=== PATIENT | male | born 1965 | race American Indian/Alaskan Native ===

== ENCOUNTER 2020-12-24 16:17 | Inpatient (IN) | payer MEDICAID ==
[2020-12-24] MEDS ORDERED: ONDANSETRON 4 MG/2 ML INJ ONE (16:23)
[2020-12-24] MEDS ORDERED: EPINEPHrine/PF 1 MG/1 ML INJ SUB-Q ONE (16:38)
[2020-12-24] MEDS ORDERED: SODIUM CHLORIDE 0.9% 1000 ML 1,000 ML IV ONE (16:38)
[2020-12-24] MEDS ORDERED: diphenhydrAMINE 50 MG/ML VIAL IV ONE ×2 (16:38→22:48)
[2020-12-24] MEDS ORDERED: methylPREDNISolone Sod Succinate 125 MG/2 ML INJ IV ONE (16:38)
[2020-12-24] MEDS ORDERED: FAMOTIDINE 20 MG/2 ML INJ IV ONE (16:38)
[2020-12-24] MEDS ORDERED: MINERAL OIL/PETROLATUM, WHITE OPHTH OINT 3.5 GM OU PRN (16:39)
[2020-12-24] MEDS ORDERED: LIP THERAPY VASELINE TP PRN (16:39)
--- NOTE | 2020-12-24 16:41 | Emergency Department Report ---
ED Allergic Reaction HPI - General Chief complaint: Allergic Reaction Stated complaint: RAF Time Seen by Provider: 12/24/20 16:17 Source: patient Mode of arrival: Stretcher Limitations: No Limitations - History of Present Illness Initial Comments: Patient is a 55-year-old male who presents with difficulty breathing allergic reaction. Patient states that he was having English food and instantly began to have difficulty. Patient dates he has been intubated in the past for asthma and allergies. Patient states he has a history of asthma COPD and severe allergic reactions. Patient states he cannot breathe. Patient states he feels like is going to . Patient states his tongue and throat were swelling. Patient denies pain. Patient denies recent travel. Patient denies recent international travel. Patient denies exposure to the novel coronavirus. Patient denies sick contacts. Patient denies fever and chills. Patient denies cough. Patient denies diarrhea. Patient denies coming in contact with anybody with symptoms of the novel coronavirus. MD Complaint: allergic reaction, facial swelling -: Sudden Exposure: food Symptoms: facial swelling, lip swelling, difficulty swallowing, difficulty breathing, orolingual swelling Severity: severe Treatment Prior to Arrival: none Previous Allergy History: anaphylaxis, intubation - Related Data Previous Rx's Medication Instructions Recorded Last Taken Type ALBUTEROL NEB's [Proventil 0.083% 2.5 mg IH Q3HR PRN 30 Days nebu 08/03/17 Unknown Rx NEBS] Albuterol Mdi (or & Nicu Only) 1 puff IH PRN 30 Days inha 08/03/17 Unknown Rx [ProAir HFA Inhaler] Budesonide [Pulmicort Respules] 0.5 mg IH Q12HRT 30 Days nebu 08/03/17 Unknown Rx Prednisone [predniSONE 10 mg 10 mg PO .TAPER #1 tab.ds.pk 08/03/17 Unknown Rx (6-Day Pack, 21 Tabs)] guaiFENesin [Robitussin] 200 mg PO Q4H PRN 15 Days 08/03/17 Unknown Rx oral.liqd levoFLOXacin [Levaquin] 750 mg PO QDAY #5 tablet 08/03/17 Unknown Rx oxyCODONE /ACETAMINOPHEN [Percocet 1 tab PO Q4H PRN #7 tablet 08/03/17 Unknown Rx 5/325 mg] Allergies Allergy/AdvReac Type Severity Reaction Status Date / Time Penicillins Allergy Angioedema Verified 07/31/17 06:59 ED Review of Systems ROS: Stated complaint: RAF Other details as noted in HPI Constitutional: denies: chills, fever Eyes: denies: eye pain, eye discharge, vision change ENT: denies: ear pain, throat pain Respiratory: see HPI, cough, shortness of breath, SOB with exertion, wheezing Cardiovascular: denies: chest pain, palpitations Endocrine: no symptoms reported Gastrointestinal: denies: abdominal pain, nausea, diarrhea Genitourinary: denies: urgency, dysuria Musculoskeletal: denies: back pain, joint swelling, arthralgia Skin: denies: rash, lesions Neurological: denies: headache, weakness, paresthesias Psychiatric: denies: anxiety, depression Hematological/Lymphatic: denies: easy bleeding, easy bruising ED Past Medical Hx - Past Medical History Previous Medical History?: Yes Hx Arthritis: Yes Hx Asthma: Yes Hx COPD: Yes Hx HIV: No Additional medical history: Mitral valve prolapse - Surgical History Past Surgical History?: Yes Additional Surgical History: reconstructive R leg surgery - Family History Family history: no significant - Social History Smoking Status: Current Every Day Smoker Substance Use Type: None - Medications Home Medications: Home Medications Medication Instructions Recorded Confirmed Last Taken Type ALBUTEROL NEB's [Proventil 0.083% 2.5 mg IH Q3HR PRN 30 Days nebu 08/03/17 Unknown Rx NEBS] Albuterol Mdi (or & Nicu Only) 1 puff IH PRN 30 Days inha 08/03/17 Unknown Rx [ProAir HFA Inhaler] Budesonide [Pulmicort Respules] 0.5 mg IH Q12HRT 30 Days nebu 08/03/17 Unknown Rx Prednisone [predniSONE 10 mg 10 mg PO .TAPER #1 tab.ds.pk 08/03/17 Unknown Rx (6-Day Pack, 21 Tabs)] guaiFENesin [Robitussin] 200 mg PO Q4H PRN 15 Days 08/03/17 Unknown Rx oral.liqd levoFLOXacin [Levaquin] 750 mg PO QDAY #5 tablet 08/03/17 Unknown Rx oxyCODONE /ACETAMINOPHEN [Percocet 1 tab PO Q4H PRN #7 tablet 08/03/17 Unknown Rx 5/325 mg] ED Physical Exam - General General appearance: alert, in distress - Head Head exam: Present: atraumatic, normocephalic - Eye Eye exam: Present: normal appearance - ENT ENT exam: Present: mucous membranes dry, other (Tongue swelling noted) - Neck Neck exam: Present: normal inspection - Respiratory Respiratory exam: Present: respiratory distress, accessory muscle use, decreased breath sounds - Cardiovascular Cardiovascular Exam: Present: regular rate, normal rhythm. Absent: systolic murmur, diastolic murmur, rubs, gallop - GI/Abdominal GI/Abdominal exam: Present: soft, normal bowel sounds. Absent: distended, tenderness, guarding, rebound - Rectal Rectal exam: Present: deferred - Extremities Exam Extremities exam: Present: normal inspection - Back Exam Back exam: Present: normal inspection - Neurological Exam Neurological exam: Present: alert, oriented X3 - Psychiatric Psychiatric exam: Present: agitated, anxious - Skin Skin exam: Present: warm, dry, intact, normal color. Absent: rash ED Course - Reevaluation(s) Reevaluation #1: Patient having severe allergic reaction. Patient having difficulty breathing. Patient will be given prednisone, epi, Solu-Medrol, Pepcid and a breathing treatment. Patient is not moving any air. Patient has a silent chest. 12/24/20 16:15 Reevaluation #2: Patient having increased work of breathing. Patient is fatigued. Patient is falling asleep and and is difficult to arouse. Patient will be intubated to protect the airway. 12/24/20 16:22 Reevaluation #3: Patient intubated without difficulty. Patient will be placed on a fentanyl drip. Patient has as needed orders of fentanyl. Patient given 5 mg of Versed post intubation for sedation. During intubation patient noted to have a swollen tongue and cords. 12/24/20 16:36 Reevaluation #4: Patient on the ventilator. Patient's vital signs are stable. Patient is adequately sedated. 12/24/20 16:58 - Intubation Time Out Performed: Yes Sedative: Etomidate Paralytic: Rocuronium Laryngoscope: fiberoptic video scope Size: 3 Assist Device Used: fiberoptic device ET Tube Size: 7.5 Tube Secured Depth (cm): 22 Tube Secured Location: teeth Tube Placement Confirmation: visualized tube passing t, equal breath sounds bilat, no breath sounds over epi, confirmation by capnometr Patient Tolerated Procedure: well, no complications Intubation Complications: none ED Medical Decision Making - Lab Data Result diagrams: 12/24/20 16:48 12/24/20 16:48 - Radiology Data Radiology results: report reviewed, image reviewed interpreted by me: Chest x-ray: No pneumonia, no pneumothorax, ET tube in good position., no osseous findings, CHEST 1 VIEW 12/24/2020 3:58 PM INDICATION / CLINICAL INFORMATION: ETT placement. COMPARISON: August 2017 FINDINGS: SUPPORT DEVICES: None. HEART / MEDIASTINUM: No significant abnormality. LUNGS / PLEURA: Mild increased perihilar opacities. Mild increased densities also seen extending to the left lower lung. No pneumothorax. ADDENDUM ET tube is 6.2 cm above the george. - Medical Decision Making Patient is a 55-year-old male that presents emergency room with severe anaphylaxis with complaints of shortness of breath and allergic reaction. Patient on initial evaluation found to be short of breath, increased work of breathing, respiratory distress, anxious and severely diaphoretic. Patient initially was not moving much air and after was given some medications began to wheeze. Even after the initial medications of Solu-Medrol, breathing treatment, Pepcid and Benadryl the patient continued to have work to breathe but became very lethargic. In order to protect the patient's airway and support the patient's oxygen, the patient was intubated. Patient was intubated without difficulty. Upon intubation patient noted to have a severely swollen tongue and vocal cords. Patient had a chest x-ray post intubation showed satisfactory placement of the ET tube and no acute findings. Personally reviewed the chest x-ray. Patient placed on fentanyl drip for sedation and patient was adequately sedated while in ER. Patient also given a mag run. Patient had labs done which were essentially unremarkable. Patient admitted to the hospital service for further evaluation treatment and into the ICU. Critical care time documented due to the multiple reassessments, prolonged time at the bedside, interpretation of diagnostics and labs. - Differential Diagnosis Anaphylactic shock, anaphylaxis, resp distress, respiratory failure,sob Critical Care Time: Yes Critical care time in (mins) excluding proc time.: 45 Critical care attestation.: If time is entered above; I have spent that time in minutes in the direct care of this critically ill patient, excluding procedure time. Critical Care Time: 45 minutes ED Disposition Clinical Impression: Hypoxia, Shortness of breath, Respiratory distress, Tongue swelling Respiratory failure Qualifiers: Chronicity: acute Respiratory failure complication: hypoxia Qualified Code(s): J96.01 - Acute respiratory failure with hypoxia Anaphylactic reaction Qualifiers: Encounter type: initial encounter Qualified Code(s): T78.2XXA - Anaphylactic shock, unspecified, initial encounter Disposition: DC-09 OP ADMIT IP TO THIS HOSP Is pt being admited?: Yes Does the pt Need Aspirin: No Condition: Critical Time of Disposition: 18:03
[2020-12-24] MEDS ORDERED: ROCURONIUM 50 MG/5 ML INJ IV ONE ×2 (16:46→16:50)
[2020-12-24] MEDS ORDERED: ETOMIDATE 20 MG/10 ML INJ IV ONE ×2 (16:46→16:50)
[2020-12-24] MEDS ORDERED: MIDAZOLAM 5 MG/5 ML INJ MDV IV ONE (16:50)
[2020-12-24 16:57] LABS: Hematocrit 44.6 % (35.5-45.6); Hemoglobin 14.9 gm/dl (11.8-15.2); Mean Corpuscular HGB Conc 33 % (32-34); Mean Corpuscular Volume 88 fl (84-94); Platelet Count 194 K/mm3 (140-440); Red Blood Count 5.05 M/mm3 (3.65-5.03); Red Cell Distribution Width 14.2 % (13.2-15.2)
[2020-12-24] MEDS: fentaNYL DRIP Premix 2,000 MCG/100 ML BAG IV SCH ×3 (17:00→23:58)
[2020-12-24] MEDS ORDERED: MIDAZOLAM 5 MG/5 ML INJ MDV IV NR (17:00)
--- NOTE | 2020-12-24 17:04 | XRay Report ---
CHEST 1 VIEW 12/24/2020 3:58 PM INDICATION / CLINICAL INFORMATION: ETT placement. COMPARISON: August 2017 FINDINGS: SUPPORT DEVICES: None. HEART / MEDIASTINUM: No significant abnormality. LUNGS / PLEURA: Mild increased perihilar opacities. Mild increased densities also seen extending to t he left lower lung. No pneumothorax. Signer Name: Edd Junior MD Signed: 12/24/2020 5:00 PM Workstation Name: [id number]
[2020-12-24] MEDS: fentaNYL 100 MCG/2 ML INJ IV PRN ×2 (17:10→17:40)
[2020-12-24] MEDS ORDERED: MAGNESIUM SULFATE 2 GM/50 ML BAG IV ONE (17:19)
[2020-12-24 17:35] LABS: Alanine Aminotransferase 33 units/L (7-56); Albumin 4.2 g/dL (3.9-5); BUN/Creatinine Ratio 9; Blood Urea Nitrogen 8 mg/dL (9-20); Calcium 8.7 mg/dL (8.4-10.2); Hemolysis Index 56
[2020-12-24 18:30] LABS: ABG HCO3 28.3 mmol/L (20.0-26.0); ABG Methemoglobin 0.6 % (0.0-1.5); ABG Oxygen Saturation 99.4 % (95.0-99.0); ABG PCO2 62.4 mm Hg; ABG PH 7.275 pH Units (7.350-7.450); ABG PO2 257.7 mm Hg (80.0-90.0)
[2020-12-24 20:15] LABS: Large Platelets Rare; Total Cells Counted 100
[2020-12-24 20:16] LABS: Platelet Estimate Consistent w Auto
[2020-12-24] MEDS ORDERED: METOCLOPRAMIDE 10 MG/2 ML INJ IV PRN (22:37)
[2020-12-24] MEDS ORDERED: HYDROmorphone 1 MG/1 ML INJ IV PRN (22:37)
[2020-12-24] MEDS ORDERED: ONDANSETRON 4 MG/2 ML INJ IV PRN (22:37)
[2020-12-24] MEDS ORDERED: ACETAMINOPHEN 325 MG TAB PO PRN (22:37)
[2020-12-24] MEDS ORDERED: IPRATROPIUM/ALBUTEROL SULFATE 3 ML AMPUL.NEB IH PRN (22:42)
[2020-12-24] MEDS ORDERED: SODIUM CHLORIDE 0.9% 1000 ML 1,000 ML IV SCH (22:45)
[2020-12-24] MEDS ORDERED: FAMOTIDINE 20 MG/2 ML INJ IV SCH ×2 (23:00)
[2020-12-24] MEDS ORDERED: SODIUM BICARBONATE 325 MG TAB FEEDTUBE PRN (23:08)
[2020-12-24] MEDS ORDERED: LIPASE 10,500/PROTEASE 25,000/AMYLASE 43,750 (UNITS) DR CAP FEEDTUBE PRN (23:08)
[2020-12-24] MEDS ORDERED: SIMPLE SYRUP 15 ML FEEDTUBE PRN ×2 (23:08)
--- NOTE | 2020-12-24 23:15 | History and Physical Report ---
History of Present Illness Date of examination: 12/24/20 Date of admission: 12/24/20 18:01 Chief complaint: Acute onset of shortness of breath after eating Vietnamese food History of present illness: 55-year-old male comes in for an acute onset of shortness of breath and swelling of the lips and tongue. Patient stated he was having time for instantly began to have difficulty breathing and swelling of the tongue and lips. Patient has history of severe allergic reactions in addition to asthma and COPD. Patient states he cannot read. Patient states that he is feeling as if he is going to . Patient patient was immediately intubated in the emergency room upon ar rival to prevent severe hypoxia and anoxic encephalopathy. Patient is probably allergic to shrimp. No fever or chills - Past Medical History Previous Medical History?: Yes --Arthritis: Yes --Asthma: Yes --COPD: Yes Additional medical history: Mitral valve prolapse - Surgical History Past Surgical History?: Yes Additional Surgical History: reconstructive R leg surgery - Family History Family history: no significant - Social History Smoking Status: Current Every Day Smoker Substance Use Type: None - Medications Home Medications: Home Medications Medication Instructions Recorded Confirmed Last Taken Type ALBUTEROL NEB's [Proventil 0.083% 2.5 mg IH Q3HR PRN 30 Days nebu 08/03/17 Unknown Rx NEBS] Albuterol Mdi (or & Nicu Only) 1 puff IH PRN 30 Days inha 08/03/17 Unknown Rx [ProAir HFA Inhaler] Budesonide [Pulmicort Respules] 0.5 mg IH Q12HRT 30 Days nebu 08/03/17 Unknown Rx Prednisone [predniSONE 10 mg 10 mg PO .TAPER #1 tab.ds.pk 08/03/17 Unknown Rx (6-Day Pack, 21 Tabs)] guaiFENesin [Robitussin] 200 mg PO Q4H PRN 15 Days 08/03/17 Unknown Rx oral.liqd levoFLOXacin [Levaquin] 750 mg PO QDAY #5 tablet 08/03/17 Unknown Rx oxyCODONE /ACETAMINOPHEN [Percocet 1 tab PO Q4H PRN #7 tablet 08/03/17 Unknown Rx 5/325 mg] Review of Systems ROS: Stated complaint: RAF Other details as noted in HPI Constitutional: denies: chills, fever Eyes: denies: eye pain, eye discharge, vision change ENT: denies: ear pain, throat pain Respiratory: see HPI, cough, shortness of breath, SOB with exertion, wheezing Cardiovascular: denies: chest pain, palpitations Endocrine: no symptoms reported Gastrointestinal: denies: abdominal pain, nausea, diarrhea Genitourinary: denies: urgency, dysuria Musculoskeletal: denies: back pain, joint swelling, arthralgia Skin: denies: rash, lesions Neurological: denies: headache, weakness, paresthesias Psychiatric: denies: anxiety, depression Hematological/Lymphatic: denies: easy bleeding, easy bruising Medications and Allergies Allergies Allergy/AdvReac Type Severity Reaction Status Date / Time Penicillins Allergy Angioedema Verified 07/31/17 06:59 Home Medications Medication Instructions Recorded Confirmed Last Taken Type ALBUTEROL NEB's [Proventil 0.083% 2.5 mg IH Q3HR PRN 30 Days nebu 08/03/17 12/25/20 Unknown Rx NEBS] Albuterol Mdi (or & Nicu Only) 1 puff IH PRN 30 Days inha 08/03/17 12/25/20 Unknown Rx [ProAir HFA Inhaler] Budesonide [Pulmicort Respules] 0.5 mg IH Q12HRT 30 Days nebu 08/03/17 12/25/20 Unknown Rx Prednisone [predniSONE 10 mg 10 mg PO .TAPER #1 tab.ds.pk 08/03/17 12/25/20 Unknown Rx (6-Day Pack, 21 Tabs)] guaiFENesin [Robitussin] 200 mg PO Q4H PRN 15 Days 08/03/17 12/25/20 Unknown Rx oral.liqd levoFLOXacin [Levaquin] 750 mg PO QDAY #5 tablet 08/03/17 12/25/20 Unknown Rx oxyCODONE /ACETAMINOPHEN [Percocet 1 tab PO Q4H PRN #7 tablet 08/03/17 12/25/20 Unknown Rx 5/325 mg] Active Meds: Active Medications Fentanyl (Fentanyl 100 Mcg/2 Ml Inj) 50 mcg IV Q10MIN PRN PRN Reason: ANALGESIA Last Admin: 12/24/20 17:40 Dose: 50 mcg Documented by: Hydrophilic Ointment (Lip Therapy Vaseline) 1 applic TP Q2HR PRN PRN Reason: Dry Lips Fentanyl Citrate (Fentanyl Drip Premix) 2,000 mcg in 100 mls @ 6.804 mls/hr IV TITR CHINTAN; Protocol Last Titration: 12/24/20 17:45 Dose: 4 mcg/kg/hr, 27.216 mls/hr Documented by: Multi-Ingred Cream/Lotion/Oil/Oint (Mineral Oil/Petrolatum, White Ophth Oint 3.5 Gm) 1 applic OU Q4HR PRN PRN Reason: Dry Eye(s) Exam - Physical Exam Narrative exam: Patient is intubated and on vent - Constitutional Vitals: Temp Pulse Resp BP Pulse Ox 98.6 F 81 14 132/78 97 12/24/20 17:58 12/24/20 21:31 12/24/20 21:31 12/24/20 21:31 12/24/20 21:31 General appearance: Present: severe distress - EENT Eyes: Present: PERRL ENT: hearing intact, clear oral mucosa, other (Tongue swollen and lip swollen) - Neck Neck: Present: supple, normal ROM - Respiratory Respiratory effort: normal Respiratory: bilateral: CTA - Cardiovascular Heart rate: 78 Rhythm: regular Heart Sounds: Present: S1 & S2. Absent: rub, click - Extremities Extremities: pulses symmetrical, No edema Peripheral Pulses: within normal limits - Abdominal General gastrointestinal: Present: soft, non-tender, non-distended, normal bowel sounds Male genitourinary: Present: normal - Integumentary Integumentary: Present: clear, warm, dry - Musculoskeletal Musculoskeletal: gait normal, strength equal bilaterally - Psychiatric Psychiatric: appropriate mood/affect, intact judgment & insight - Neurologic Neurologic: CNII-XII intact, moves all extremities HEART Score - HEART Score History: Slightly suspicious Age: 45-65 Risk factors: No known risk factors - Critical Actions Critical Actions: 0-3 pts:0.9-1.7%risk of adverse cardiac event.Candidate for discharge Results - Labs CBC & Chem 7: 12/25/20 04:44 12/26/20 05:23 Labs: Laboratory Last Values WBC 5.9 K/mm3 (4.5-11.0) 12/24/20 16:48 RBC 5.05 M/mm3 (3.65-5.03) H 12/24/20 16:48 Hgb 14.9 gm/dl (11.8-15.2) 12/24/20 16:48 Hct 44.6 % (35.5-45.6) 12/24/20 16:48 MCV 88 fl (84-94) 12/24/20 16:48 MCH 30 pg (28-32) 12/24/20 16:48 MCHC 33 % (32-34) 12/24/20 16:48 RDW 14.2 % (13.2-15.2) 12/24/20 16:48 Plt Count 194 K/mm3 (140-440) 12/24/20 16:48 Add Manual Diff Complete 12/24/20 16:48 Total Counted 100 12/24/20 16:48 Seg Neutrophils % Traffic Operations Manager 12/24/20 16:48 Seg Neuts % (Manual) 30.0 % (40.0-70.0) L 12/24/20 16:48 Lymphocytes % (Manual) 53.0 % (13.4-35.0) H 12/24/20 16:48 Monocytes % (Manual) 8.0 % (0.0-7.3) H 12/24/20 16:48 Eosinophils % (Manual) 7.0 % (0.0-4.3) H 12/24/20 16:48 Basophils % (Manual) 2.0 % (0.0-1.8) H 12/24/20 16:48 Nucleated RBC % Not Reportable 12/24/20 16:48 Seg Neutrophils # Man 1.8 K/mm3 (1.8-7.7) 12/24/20 16:48 Band Neutrophils # 0.0 K/mm3 12/24/20 16:48 Lymphocytes # (Manual) 3.1 K/mm3 (1.2-5.4) 12/24/20 16:48 Abs React Lymphs (Man) 0.0 K/mm3 12/24/20 16:48 Monocytes # (Manual) 0.5 K/mm3 (0.0-0.8) 12/24/20 16:48 Eosinophils # (Manual) 0.4 K/mm3 (0.0-0.4) 12/24/20 16:48 Basophils # (Manual) 0.1 K/mm3 (0.0-0.1) 12/24/20 16:48 Metamyelocytes # 0.0 K/mm3 12/24/20 16:48 Myelocytes # 0.0 K/mm3 12/24/20 16:48 Promyelocytes # 0.0 K/mm3 12/24/20 16:48 Blast Cells # 0.0 K/mm3 12/24/20 16:48 WBC Morphology Not Reportable 12/24/20 16:48 Hypersegmented Neuts Not Reportable 12/24/20 16:48 Hyposegmented Neuts Not Reportable 12/24/20 16:48 Hypogranular Neuts Not Reportable 12/24/20 16:48 Smudge Cells Not Reportable 12/24/20 16:48 Toxic Granulation Not Reportable 12/24/20 16:48 Toxic Vacuolation Not Reportable 12/24/20 16:48 Dohle Bodies Not Reportable 12/24/20 16:48 Pelger-Huet Anomaly Not Reportable 12/24/20 16:48 Yohan Rods Not Reportable 12/24/20 16:48 Platelet Estimate Consistent w auto 12/24/20 16:48 Clumped Platelets Not Reportable 12/24/20 16:48 Plt Clumps, EDTA Not Reportable 12/24/20 16:48 Large Platelets Rare 12/24/20 16:48 Giant Platelets Not Reportable 12/24/20 16:48 Platelet Satelliting Not Reportable 12/24/20 16:48 Plt Morphology Comment Not Reportable 12/24/20 16:48 RBC Morphology Not Reportable 12/24/20 16:48 Dimorphic RBCs Not Reportable 12/24/20 16:48 Polychromasia Not Reportable 12/24/20 16:48 Hypochromasia Not Reportable 12/24/20 16:48 Poikilocytosis Not Reportable 12/24/20 16:48 Anisocytosis Not Reportable 12/24/20 16:48 Microcytosis Not Reportable 12/24/20 16:48 Macrocytosis Not Reportable 12/24/20 16:48 Spherocytes Not Reportable 12/24/20 16:48 Pappenheimer Bodies Not Reportable 12/24/20 16:48 Sickle Cells Not Reportable 12/24/20 16:48 Target Cells Not Reportable 12/24/20 16:48 Tear Drop Cells Not Reportable 12/24/20 16:48 Ovalocytes Not Reportable 12/24/20 16:48 Helmet Cells Not Reportable 12/24/20 16:48 [place] Bodies Not Reportable 12/24/20 16:48 [place] Rings Not Reportable 12/24/20 16:48 [place] Cells Not Reportable 12/24/20 16:48 Bite Cells Not Reportable 12/24/20 16:48 Crenated Cell Not Reportable 12/24/20 16:48 Elliptocytes Not Reportable 12/24/20 16:48 Acanthocytes (Spur) Not Reportable 12/24/20 16:48 Rouleaux Not Reportable 12/24/20 16:48 Hemoglobin C Crystals Not Reportable 12/24/20 16:48 Schistocytes Not Reportable 12/24/20 16:48 Malaria parasites Not Reportable 12/24/20 16:48 Tom Bodies Not Reportable 12/24/20 16:48 Hem Pathologist Commnt No 12/24/20 16:48 ABG pH 7.275 pH Units (7.350-7.450) L 12/24/20 18:05 ABG pCO2 62.4 mm Hg 12/24/20 18:05 ABG pO2 257.7 mm Hg (80.0-90.0) H 12/24/20 18:05 ABG HCO3 28.3 mmol/L (20.0-26.0) H 12/24/20 18:05 ABG O2 Saturation 99.4 % (95.0-99.0) H 12/24/20 18:05 ABG O2 Content 20.3 (0.0-44) 12/24/20 18:05 ABG Base Excess 0.0 mmol/L (-2.0-3.0) 12/24/20 18:05 ABG Hemoglobin 14.6 gm/dl (14.0-18.0) 12/24/20 18:05 ABG Carboxyhemoglobin 2.6 % (0.0-5.0) 12/24/20 18:05 ABG Methemoglobin 0.6 % (0.0-1.5) 12/24/20 18:05 Oxyhemoglobin 96.2 % (95.0-99.0) 12/24/20 18:05 FiO2 100 % 12/24/20 18:05 Sodium 139 mmol/L (137-145) 12/24/20 16:48 Potassium 3.5 mmol/L (3.6-5.0) L 12/24/20 16:48 Chloride 102.2 mmol/L (98-107) 12/24/20 16:48 Carbon Dioxide 22 mmol/L (22-30) 12/24/20 16:48 Anion Gap 18 mmol/L 12/24/20 16:48 BUN 8 mg/dL (9-20) L 12/24/20 16:48 Creatinine 0.9 mg/dL (0.8-1.3) 12/24/20 16:48 Estimated GFR > 60 ml/min 12/24/20 16:48 BUN/Creatinine Ratio 9 % 12/24/20 16:48 Glucose 147 mg/dL (75-100) H 12/24/20 16:48 Calcium 8.7 mg/dL (8.4-10.2) 12/24/20 16:48 Total Bilirubin 0.30 mg/dL (0.1-1.2) 12/24/20 16:48 AST 24 units/L (5-40) 12/24/20 16:48 ALT 33 units/L (7-56) 12/24/20 16:48 Alkaline Phosphatase 57 units/L (35-129) 12/24/20 16:48 Total Protein 6.9 g/dL (6.3-8.2) 12/24/20 16:48 Albumin 4.2 g/dL (3.9-5) 12/24/20 16:48 Albumin/Globulin Ratio 1.6 % 12/24/20 16:48 Short CBC 12/24/20 12/25/20 Range/Units 16:48 04:44 WBC 5.9 15.3 H (4.5-11.0) K/mm3 Hgb 14.9 15.3 H (11.8-15.2) gm/dl Hct 44.6 45.9 H (35.5-45.6) % Plt Count 194 208 (140-440) K/mm3 BMP 12/24/20 12/25/20 12/25/20 16:48 04:44 06:32 Sodium 139 136 L 135 L Potassium 3.5 L 7.4 H* D 6.9 H* Chloride 102.2 99.3 101.2 Carbon Dioxide 22 27 25 BUN 8 L 19 21 H Creatinine 0.9 2.4 H D 2.3 H Glucose 147 H 162 H 180 H Calcium 8.7 9.0 8.4 Cardiac Enzymes 12/25/20 12/25/20 Range/Units 06:34 07:47 Total Creatine Kinase 569 H 569 H (55-170) units/L CK-MB (CK-2) 4.8 H 4.9 H (0.0-4.0) ng/mL Liver Function 12/24/20 12/25/20 Range/Units 16:48 04:44 Total Bilirubin 0.30 0.50 (0.1-1.2) mg/dL AST 24 24 (5-40) units/L ALT 33 36 (7-56) units/L Alkaline Phosphatase 57 57 (35-129) units/L Albumin 4.2 4.9 (3.9-5) g/dL - Imaging and Cardiology Chest x-ray: report reviewed Imaging and Cardiology: Chest x-ray Mild increased perihilar opacities Mild increased density is also seen extending to the left lower lung No pneumothorax Assessment and Plan Assessment and plan: Critical care statement The high probability OF a clinically significant sudden or life-threatening deterioration of the cardiorespiratory system and endocrine system required my full and direct attention, intervention and postoperative management. The aggregate critical care time was 40 minutes. The time is in addition to time spent performing reported procedures but includes the followin: Data review and interpretation 2: Patient assessment and monitoring of vital signs 3: Documentation 4:: Medication orders and management Advance Directives: Yes (Full code) VTE prophylaxis?: Chemical Plan of care discussed with patient/family: Yes - Patient Problems (1) Acute respiratory failure with hypoxia Current Visit: Yes Status: Acute Plan to address problem: Patient intubated in emergency room IV Solu-Medrol IV Pepcid IV Benadryl initiated IV antibiotics for possible aspiration (2) Bilateral pneumonia Current Visit: Yes Status: Acute Plan to address problem: IV antibiotics for now Possible aspiration (3) Anaphylactic reaction Current Visit: Yes Status: Acute Qualifiers: Encounter type: initial encounter Qualified Code(s): T78.2XXA - Anaphylactic shock, unspecified, initial encounter Plan to address problem: Patient treated for anaphylaxis and started on IV Solu-Medrol IV Pepcid and IV Benadryl Patient has a shrimp allergy (4) COPD (chronic obstructive pulmonary disease) Current Visit: Yes Status: Chronic Qualifiers: Emphysema type: unspecified Plan to address problem: Duo nebs [id number] and as needed (5) DVT prophylaxis Current Visit: Yes Status: Acute Plan to address problem: On heparin and GI prophylaxis
[2020-12-25] MEDS: fentaNYL DRIP Premix 2,000 MCG/100 ML BAG IV SCH ×5 (03:19→23:37)
[2020-12-25] MEDS ORDERED: LORazepam 2 MG/ML VIAL ONE ×2 (04:08→11:34)
[2020-12-25] MEDS ORDERED: LORazepam 2 MG/ML VIAL IV PRN (04:09)
[2020-12-25] MEDS ORDERED: diphenhydrAMINE 50 MG/ML VIAL ONE (05:13)
[2020-12-25] MEDS ORDERED: methylPREDNISolone Sod Succinate 125 MG/2 ML INJ ONE (05:13)
[2020-12-25 05:25] LABS: Hematocrit 45.9 % (35.5-45.6); Hemoglobin 15.3 gm/dl (11.8-15.2); Mean Corpuscular HGB Conc 33 % (32-34); Mean Corpuscular Volume 89 fl (84-94); Platelet Count 208 K/mm3 (140-440); Red Blood Count 5.15 M/mm3 (3.65-5.03); Red Cell Distribution Width 14.3 % (13.2-15.2)
[2020-12-25 06:02] LABS: Albumin 4.9 g/dL (3.9-5)
[2020-12-25 06:59] LABS: Calcium 8.4 mg/dL (8.4-10.2)
[2020-12-25 07:00] LABS: Platelet Estimate Consistent w Auto; Total Cells Counted 100
[2020-12-25 07:01] LABS: Creatine Kinase MB 4.8 ng/mL (0.0-4.0)
[2020-12-25] MEDS ORDERED: INSULIN REGULAR, HUMAN 100 UNITS/1 ML IV ONE ×2 (07:34→16:09)
[2020-12-25] MEDS ORDERED: DEXTROSE 50% IN WATER (25GM) 50 ML SYRINGE IV ONE ×2 (07:34→16:10)
[2020-12-25] MEDS ORDERED: SODIUM POLYSTYRENE 15 GM/60 ML ORAL LIQD PO ONE ×2 (07:35→21:00)
[2020-12-25] MEDS ORDERED: SODIUM BICARB 8.4% 50 MEQ/50 ML SYRINGE IV ONE (07:36)
--- NOTE | 2020-12-25 07:36 | Event Note ---
Date: 12/25/20 PATIENT'S LAB RESULT SHOWED POTASSIUM OF 7.4 AND CREATININ OF 2.4. AFTER SEIZURE ACTIVITY; PLAN; NURSE ON NIGHT DUTY GIVEN VERBAL ORDER FOR STAT I.V CALSIUM GLUCONATE, STAT 12 LEAD EKG, STAT REPEAT BMP LEVEL . REPEAT BMP SHOWED POTASSIUM LEVEL OF 6.9 . VERBAL ORDER FOR I.V D50W , I.V REGULAR INSULIN, I.V BICARBONATE AND KEYAXELATE PER OG TUBE.
[2020-12-25 08:22] LABS: Creatine Kinase MB 4.9 ng/mL (0.0-4.0)
--- NOTE | 2020-12-25 08:50 | XRay Report ---
ABDOMEN 1 VIEW 12/25/2020 7:30 AM INDICATION / CLINICAL INFORMATION: ogt placement. COMPARISON: None available. FINDINGS: TUBES / LINES: Esophagogastric tube has been placed into the mid stomach. BOWEL GAS PATTERN: No significant abnormality. FREE AIR / EXTRALUMINAL GAS: None. ADDITIONAL FINDINGS: No significant additional findings. IMPRESSION: 1. Esophagogastric tube in expected position. Signer Name: Krishan Jeong MD Signed: 12/25/2020 8:46 AM Workstation Name: [id number]
--- NOTE | 2020-12-25 08:51 | Event Note ---
Date: 12/25/20 Possible hemolysis of the blood specimen Hyperkalemia treated Repeat stat BMP
--- NOTE | 2020-12-25 08:52 | XRay Report ---
CHEST 1 VIEW 12/25/2020 8:07 AM INDICATION / CLINICAL INFORMATION: follow up respiratory failure. COMPARISON: 12/24/20 FINDINGS: SUPPORT DEVICES: Endotracheal tube is unchanged. Esophagogastric tube has been placed below the diaph ragm. HEART / MEDIASTINUM: Stable. LUNGS / PLEURA: Mild bilateral pulmonary opacities are unchanged. No pneumothorax. ADDITIONAL FINDINGS: No significant additional findings. IMPRESSION: 1. No significant change. Signer Name: Krishan Jeong MD Signed: 12/25/2020 8:47 AM Workstation Name: [id number]
[2020-12-25] MEDS ORDERED: cefTRIAXone/NS 2 GM/100 ML 2 GM/100 ML BAG IV SCH (10:00)
[2020-12-25] MEDS: MIDAZOLAM 2 MG/2 ML INJ ONE ×2 (10:00→11:45)
[2020-12-25] MEDS ORDERED: FAMOTIDINE 20 MG/2 ML INJ IV SCH (10:00)
--- NOTE | 2020-12-25 10:23 | Consultation ---
History of Present Illness Consult date: 12/25/20 Requesting physician: NEHA AREVALO Reason for consult: other (angioedema) History of present illness: 89 y/o male with severe allergies, admitted to the ICU from the ED secondary to angioedema from allergic reaction to [place] food. Patient intubated after being treated with solumedrol, epi, benadryl and pepcid. Intubated electively secondary to change in mental state. Was given versed 5 post intubation and then placed on fentanyl drip. This am, patient is now hyperkalemic and in acute renal failure. K was treated with kayexalate, insulin, D50 and now Calcium. Patient is awake. Will follow some commands. Per patient no prior history of renal disease and numbers were normal on admission. Does have fisher placed and has some urine in the bag. No documentation of lasix in chart. Past History Past Medical History: other (asthma) Past Surgical History: Other (unable to obtain) Social history: other (unable to obtain) Family history: other (unable to obtain) Medications and Allergies Allergies Allergy/AdvReac Type Severity Reaction Status Date / Time Penicillins Allergy Angioedema Verified 07/31/17 06:59 Home Medications Medication Instructions Recorded Confirmed Last Taken Type ALBUTEROL NEB's [Proventil 0.083% 2.5 mg IH Q3HR PRN 30 Days nebu 08/03/17 Unknown Rx NEBS] Albuterol Mdi (or & Nicu Only) 1 puff IH PRN 30 Days inha 08/03/17 Unknown Rx [ProAir HFA Inhaler] Budesonide [Pulmicort Respules] 0.5 mg IH Q12HRT 30 Days nebu 08/03/17 Unknown Rx Prednisone [predniSONE 10 mg 10 mg PO .TAPER #1 tab.ds.pk 08/03/17 Unknown Rx (6-Day Pack, 21 Tabs)] guaiFENesin [Robitussin] 200 mg PO Q4H PRN 15 Days 08/03/17 Unknown Rx oral.liqd levoFLOXacin [Levaquin] 750 mg PO QDAY #5 tablet 08/03/17 Unknown Rx oxyCODONE /ACETAMINOPHEN [Percocet 1 tab PO Q4H PRN #7 tablet 08/03/17 Unknown Rx 5/325 mg] Active Meds: Active Medications Acetaminophen (Acetaminophen 325 Mg Tab) 650 mg PO Q4H PRN PRN Reason: Pain MILD(1-3)/Fever >100.5/SAMPSON Albuterol/Ipratropium (Ipratropium/Albuterol Sulfate 3 Ml Ampul.Neb) 1 ampul IH Q3H PRN PRN Reason: Wheezing Albuterol/Ipratropium (Ipratropium/Albuterol Sulfate 3 Ml Ampul.Neb) 1 ampul IH QIDRT CHINTAN Lipase/Protease/Amylase (Lipase 10,500/Protease 25,000/Amylase 43,750 (Units) Dr Cap) 1 each FEEDTUBE PRN PRN PRN Reason: For Clogged Feeding Tube Budesonide (Budesonide 0.5 Mg/2 Ml Nebu) 0.5 mg IH Q12HRT CHINTAN Dextrose (Dextrose 50% In Water (25gm) 50 Ml Syringe) 50 ml IV ONCE ONE; Protocol Stop: 12/25/20 07:35 Diphenhydramine HCl (Diphenhydramine 50 Mg/Ml Vial) 50 mg IV Q6H CHINTAN Famotidine (Famotidine 20 Mg/2 Ml Inj) 20 mg IV BID CHINTAN Fentanyl (Fentanyl 100 Mcg/2 Ml Inj) 50 mcg IV Q10MIN PRN PRN Reason: ANALGESIA Last Admin: 12/24/20 17:40 Dose: 50 mcg Documented by: Heparin Sodium (Porcine) (Heparin 5,000 Unit/1 Ml Vial) 5,000 unit SUB-Q Q12HR CHINTAN Hydromorphone HCl (Hydromorphone 1 Mg/1 Ml Inj) 0.5 mg IV Q3H PRN PRN Reason: Pain , Severe (7-10) Hydrophilic Ointment (Lip Therapy Vaseline) 1 applic TP Q2HR PRN PRN Reason: Dry Lips Fentanyl Citrate (Fentanyl Drip Premix) 2,000 mcg in 100 mls @ 6.804 mls/hr IV TITR CHINTAN; Protocol Last Admin: 12/25/20 06:40 Dose: 4 mcg/kg/hr, 27.216 mls/hr Documented by: Sodium Chloride (Nacl 0.9% 1000 Ml) 1,000 mls @ 75 mls/hr IV DIRECT CHINTAN Calcium Gluconate 1,000 mg/ (Sodium Chloride) 110 mls @ 660 mls/hr IV ONCE ONE Stop: 12/25/20 07:26 Sodium Chloride (Nacl 0.9% 1000 Ml) 1,000 mls @ 100 mls/hr IV DIRECT CHINTAN Insulin Human Regular (Insulin Regular, Human 100 Units/1 Ml) 0 units SUB-Q Q4H CHINTAN; Protocol Insulin Human Regular (Insulin Regular, Human 100 Units/1 Ml) 10 units IV ONCE ONE Stop: 12/25/20 07:35 Lorazepam (Lorazepam 2 Mg/Ml Vial) 1 mg IV Q2H PRN PRN Reason: Seizures Methylprednisolone Sodium Succinate (Methylprednisolone Sod Succinate 125 Mg/2 Ml Inj) 125 mg IV Q8HR CHINTAN Metoclopramide HCl (Metoclopramide 10 Mg/2 Ml Inj) 10 mg IV Q6H PRN PRN Reason: Nausea And Vomiting Multi-Ingred Cream/Lotion/Oil/Oint (Mineral Oil/Petrolatum, White Ophth Oint 3.5 Gm) 1 applic OU Q4HR PRN PRN Reason: Dry Eye(s) Ondansetron HCl (Ondansetron 4 Mg/2 Ml Inj) 4 mg IV Q3H PRN PRN Reason: Nausea And Vomiting Simple Syrup (Simple Syrup 15 Ml) 15 ml FEEDTUBE PRN PRN PRN Reason: Hypoglycemia Simple Syrup (Simple Syrup 15 Ml) 30 ml FEEDTUBE PRN PRN PRN Reason: Hypoglycemia Sodium Bicarbonate (Sodium Bicarbonate 325 Mg Tab) 325 mg FEEDTUBE PRN PRN PRN Reason: For Clogged Feeding Tube Sodium Bicarbonate (Sodium Bicarb 8.4% 50 Meq/50 Ml Syringe) 100 meq IV ONCE ONE Stop: 12/25/20 07:37 Sodium Chloride (Sodium Chloride 0.9% 10 Ml Flush Syringe) 10 ml IV BID CHINTAN Sodium Chloride (Sodium Chloride 0.9% 10 Ml Flush Syringe) 10 ml IV PRN PRN PRN Reason: LINE FLUSH Sodium Polystyrene Sulfonate (Sodium Polystyrene 15 Gm/60 Ml Oral Liqd) 30 gm PO ONCE ONE Stop: 12/25/20 07:36 Review of Systems ROS unobtainable: due to endotracheal tube, due to mental status Physical Examination Vital signs: Vital Signs Resp Pulse Ox 40 H 82 L 12/24/20 17:00 12/24/20 17:00 General appearance: no acute distress, alert, other (obese) ENT: other (orally intubated) Neck: supple, other (large in circumference) Effort: normal Ascultation: Bilateral: diminished breath sounds Percussion: Bilateral: not dull Cardiovascular: regular rate and rhythm Gastrointestinal: other (distended, mildly firm) Extremities: no edema Musculoskeletal: no deformities unable to assess Results - Laboratory Findings CBC and BMP: 12/25/20 04:44 12/25/20 06:32 ABG ABG pH 7.275 pH Units (7.350-7.450) L 12/24/20 18:05 ABG pCO2 62.4 mm Hg 12/24/20 18:05 ABG pO2 257.7 mm Hg (80.0-90.0) H 12/24/20 18:05 ABG O2 Saturation 99.4 % (95.0-99.0) H 12/24/20 18:05 Abnormal lab findings: Abnormal Labs 12/24/20 12/24/20 12/24/20 16:48 16:48 18:05 WBC RBC 5.05 H Hgb Hct Seg Neuts % (Manual) 30.0 L Lymphocytes % (Manual) 53.0 H Monocytes % (Manual) 8.0 H Eosinophils % (Manual) 7.0 H Basophils % (Manual) 2.0 H Seg Neutrophils # Man Lymphocytes # (Manual) ABG pH 7.275 L ABG pO2 257.7 H ABG HCO3 28.3 H ABG O2 Saturation 99.4 H Sodium Potassium 3.5 L BUN 8 L Creatinine Glucose 147 H POC Glucose Hemoglobin A1c Total Creatine Kinase CK-MB (CK-2) 12/24/20 12/25/20 12/25/20 23:16 04:44 04:44 WBC 15.3 H RBC 5.15 H Hgb 15.3 H Hct 45.9 H Seg Neuts % (Manual) 91.0 H Lymphocytes % (Manual) 4.0 L Monocytes % (Manual) Eosinophils % (Manual) Basophils % (Manual) Seg Neutrophils # Man 13.9 H Lymphocytes # (Manual) 0.6 L ABG pH ABG pO2 ABG HCO3 ABG O2 Saturation Sodium 136 L Potassium 7.4 H* D BUN Creatinine 2.4 H D Glucose 162 H POC Glucose 229 H Hemoglobin A1c Total Creatine Kinase CK-MB (CK-2) 12/25/20 12/25/20 12/25/20 04:44 06:19 06:32 WBC RBC Hgb Hct Seg Neuts % (Manual) Lymphocytes % (Manual) Monocytes % (Manual) Eosinophils % (Manual) Basophils % (Manual) Seg Neutrophils # Man Lymphocytes # (Manual) ABG pH ABG pO2 ABG HCO3 ABG O2 Saturation Sodium 135 L Potassium 6.9 H* BUN 21 H Creatinine 2.3 H Glucose 180 H POC Glucose 172 H Hemoglobin A1c 6.4 H Total Creatine Kinase CK-MB (CK-2) 12/25/20 12/25/20 06:34 07:47 WBC RBC Hgb Hct Seg Neuts % (Manual) Lymphocytes % (Manual) Monocytes % (Manual) Eosinophils % (Manual) Basophils % (Manual) Seg Neutrophils # Man Lymphocytes # (Manual) ABG pH ABG pO2 ABG HCO3 ABG O2 Saturation Sodium Potassium BUN Creatinine Glucose POC Glucose Hemoglobin A1c Total Creatine Kinase 569 H 569 H CK-MB (CK-2) 4.8 H 4.9 H - Diagnostic Findings Chest x-ray: image reviewed Assessment and Plan 55 y/o male with acute respiratory failure thought secondary to allergic reaction with angioedema 1. Agree with IV steroids at current dosing 2. Agree with benadryl at q6 hour dosing 3. Agree with BID Pepcid 4. Will stop IV abx therapy all together 5. Ordered bilateral renal ultrasound as well as urine lytes. Continue fisher catheter for now. Would go ahead and order renal consult in case they feel patient needs HD. 6. Ordered BNP given CXR findings 7. Will repeat Chemistry this afternoon at 1400, BNP can be drawn then. CCT 31 minutes.
[2020-12-25 11:05] LABS: Calcium 8.7 mg/dL (8.4-10.2)
[2020-12-25] MEDS ORDERED: MIDAZOLAM 2 MG/2 ML INJ IV ONE ×2 (11:43→13:52)
[2020-12-25] MEDS ORDERED: fentaNYL 100 MCG/2 ML INJ IV ONE (11:43)
[2020-12-25] MEDS ORDERED: LORazepam 2 MG/ML VIAL IV ONE (11:44)
[2020-12-25 11:46] LABS: Creatinine,Urine 263.9 mg/dL (0.1-20.0)
[2020-12-25] MEDS ORDERED: ETOMIDATE 20 MG/10 ML INJ IV ONE (11:47)
--- NOTE | 2020-12-25 12:05 | Event Note ---
Date: 12/25/20 Patient having what appeared to be seizure like activity, however on my exam was awake and alert and would respond. could hear voice over ET tube. CUff was deflated. Re-inflated cuff but still with large leak heard. Decision made to change tube out. Initially used tube exchanger but no good color change noted. Tube removed and intubated with a 7.5 ET tube. Swelling of oropharynx and cords seen with glide scope. Intubated and placed back on the vent. Await CXR for placement confirmation. CCT 31 minutes
--- NOTE | 2020-12-25 12:36 | XRay Report ---
CHEST 1 VIEW 12/25/2020 11:24 AM INDICATION / CLINICAL INFORMATION: ETT placement. COMPARISON: 8:07 AM FINDINGS: SUPPORT DEVICES: Endotracheal and esophagogastric tubes in expected position. HEART / MEDIASTINUM: Stable. LUNGS / PLEURA: Bibasilar densities are stable. No pneumothorax. ADDITIONAL FINDINGS: No significant additional findings. IMPRESSION: 1. Endotracheal tube in expected position. Signer Name: Krishan Jeong MD Signed: 12/25/2020 12:32 PM Workstation Name: [id number]
--- NOTE | 2020-12-25 12:37 | XRay Report ---
ABDOMEN 1 VIEW 12/25/2020 12:20 PM INDICATION / CLINICAL INFORMATION: NG tube placement. COMPARISON: 8:14 AM FINDINGS: TUBES / LINES: Esophagogastric tube is present in the mid stomach. BOWEL GAS PATTERN: Interval marked gaseous distention of the stomach. No dilated small or large bowel . FREE AIR / EXTRALUMINAL GAS: None. ADDITIONAL FINDINGS: No significant additional findings. IMPRESSION: 1. Esophagogastric tube in expected position. 2. Marked gaseous distention of the stomach is new. Signer Name: Krishan Jeong MD Signed: 12/25/2020 12:32 PM Workstation Name: [id number]
--- NOTE | 2020-12-25 12:53 | Consultation ---
History of Present Illness - Reason for Consult Consult date: 12/25/20 acute renal failure, hyperkalemia - History of Present Illness History obtained from medical records as patient is intubated. 55-year-old male comes in for an acute onset of shortness of breath and swelling of the lips and tongue. Patient stated he was having time for instantly began to have difficulty breathing and swelling of the tongue and lips. Patient has history of severe allergic reactions in addition to asthma and COPD. Patient states he cannot read. Patient states that he is feeling as if he is going to . Patient patient was immediately intubated in the emergency room upon arrival to prevent severe hypoxia and anoxic encephalopathy. Patient is probably allergic to shrimp. No fever or chills Past History Past Medical History: other (asthma) Past Surgical History: Other (unable to obtain) Social history: other (unable to obtain) Family history: other (unable to obtain) Medications and Allergies Allergies Allergy/AdvReac Type Severity Reaction Status Date / Time Penicillins Allergy Angioedema Verified 07/31/17 06:59 Home Medications Medication Instructions Recorded Confirmed Last Taken Type ALBUTEROL NEB's [Proventil 0.083% 2.5 mg IH Q3HR PRN 30 Days nebu 08/03/17 12/25/20 Unknown Rx NEBS] Albuterol Mdi (or & Nicu Only) 1 puff IH PRN 30 Days inha 08/03/17 12/25/20 Unknown Rx [ProAir HFA Inhaler] Budesonide [Pulmicort Respules] 0.5 mg IH Q12HRT 30 Days nebu 08/03/17 12/25/20 Unknown Rx Prednisone [predniSONE 10 mg 10 mg PO .TAPER #1 tab.ds.pk 08/03/17 12/25/20 Unknown Rx (6-Day Pack, 21 Tabs)] guaiFENesin [Robitussin] 200 mg PO Q4H PRN 15 Days 08/03/17 12/25/20 Unknown Rx oral.liqd levoFLOXacin [Levaquin] 750 mg PO QDAY #5 tablet 08/03/17 12/25/20 Unknown Rx oxyCODONE /ACETAMINOPHEN [Percocet 1 tab PO Q4H PRN #7 tablet 08/03/17 12/25/20 Unknown Rx 5/325 mg] Active Meds: Active Medications Acetaminophen (Acetaminophen 325 Mg Tab) 650 mg PO Q4H PRN PRN Reason: Pain MILD(1-3)/Fever >100.5/SAMPSON Albuterol/Ipratropium (Ipratropium/Albuterol Sulfate 3 Ml Ampul.Neb) 1 ampul IH QIDRT CHINTAN Lipase/Protease/Amylase (Lipase 10,500/Protease 25,000/Amylase 43,750 (Units) Dr Cap) 1 each FEEDTUBE PRN PRN PRN Reason: For Clogged Feeding Tube Budesonide (Budesonide 0.5 Mg/2 Ml Nebu) 0.5 mg IH Q12HRT CHINTAN Diphenhydramine HCl (Diphenhydramine 50 Mg/Ml Vial) 50 mg IV Q6H CHINTAN Famotidine (Famotidine 20 Mg/2 Ml Inj) 20 mg IV BID CHINTAN Fentanyl (Fentanyl 100 Mcg/2 Ml Inj) 50 mcg IV Q10MIN PRN PRN Reason: ANALGESIA Last Admin: 12/24/20 17:40 Dose: 50 mcg Documented by: Heparin Sodium (Porcine) (Heparin 5,000 Unit/1 Ml Vial) 5,000 unit SUB-Q Q12HR CHINTAN Hydromorphone HCl (Hydromorphone 1 Mg/1 Ml Inj) 0.5 mg IV Q3H PRN PRN Reason: Pain , Severe (7-10) Hydrophilic Ointment (Lip Therapy Vaseline) 1 applic TP Q2HR PRN PRN Reason: Dry Lips Fentanyl Citrate (Fentanyl Drip Premix) 2,000 mcg in 100 mls @ 6.804 mls/hr IV TITR CHINTAN; Protocol Last Admin: 12/25/20 06:40 Dose: 4 mcg/kg/hr, 27.216 mls/hr Documented by: Calcium Gluconate 1,000 mg/ (Sodium Chloride) 110 mls @ 660 mls/hr IV ONCE ONE Stop: 12/25/20 13:09 Sodium Chloride (Nacl 0.9% 1000 Ml) 1,000 mls @ 100 mls/hr IV DIRECT CHINTAN Insulin Human Regular (Insulin Regular, Human 100 Units/1 Ml) 0 units SUB-Q Q4HR CHINTAN; Protocol Lorazepam (Lorazepam 2 Mg/Ml Vial) 1 mg IV Q2H PRN PRN Reason: Seizures Methylprednisolone Sodium Succinate (Methylprednisolone Sod Succinate 125 Mg/2 Ml Inj) 125 mg IV Q8HR CHINTAN Metoclopramide HCl (Metoclopramide 10 Mg/2 Ml Inj) 10 mg IV Q6H PRN PRN Reason: Nausea And Vomiting Multi-Ingred Cream/Lotion/Oil/Oint (Mineral Oil/Petrolatum, White Ophth Oint 3.5 Gm) 1 applic OU Q4HR PRN PRN Reason: Dry Eye(s) Ondansetron HCl (Ondansetron 4 Mg/2 Ml Inj) 4 mg IV Q3H PRN PRN Reason: Nausea And Vomiting Simple Syrup (Simple Syrup 15 Ml) 15 ml FEEDTUBE PRN PRN PRN Reason: Hypoglycemia Simple Syrup (Simple Syrup 15 Ml) 30 ml FEEDTUBE PRN PRN PRN Reason: Hypoglycemia Sodium Bicarbonate (Sodium Bicarbonate 325 Mg Tab) 325 mg FEEDTUBE PRN PRN PRN Reason: For Clogged Feeding Tube Sodium Chloride (Sodium Chloride 0.9% 10 Ml Flush Syringe) 10 ml IV BID CHINTAN Sodium Chloride (Sodium Chloride 0.9% 10 Ml Flush Syringe) 10 ml IV PRN PRN PRN Reason: LINE FLUSH Exam - Vital Signs Vital signs: Vital Signs Resp Pulse Ox 40 H 82 L 12/24/20 17:00 12/24/20 17:00 - General Appearance General appearance: well-developed, well-nourished, intubated EENT: ATNC Respiratory: Other (coarse breath sounds) Heart: regular, S1S2 Gastrointestinal: Present: normal. Absent: tenderness, distended Integumentary: no rash, warm and dry Psychiatric: cooperative Results - Lab Results 12/25/20 04:44 12/25/20 14:30 Most recent lab results ABG pH 7.275 pH Units (7.350-7.450) L 12/24/20 18:05 ABG pCO2 62.4 mm Hg 12/24/20 18:05 ABG pO2 257.7 mm Hg (80.0-90.0) H 12/24/20 18:05 ABG HCO3 28.3 mmol/L (20.0-26.0) H 12/24/20 18:05 ABG O2 Saturation 99.4 % (95.0-99.0) H 12/24/20 18:05 Calcium 8.7 mg/dL (8.4-10.2) 03/27/21 09:55 Urine Creatinine 263.9 mg/dL (0.1-20.0) H 12/25/20 10:48 Urine Sodium 32 mmol/L 12/25/20 10:48 Assessment and Plan Impression: * Acute kidney injury -?etiology * Hyperkalemia * Acute respiratory failure secondary * Anaphylaxis Plan: * Renal function improved * Continue medical management of hyperK - will repeat BMP at 1900. Plan to redose kayexelate this evening * Trend CK * Continue IVF for hydration * Renal ultrasound is pending - will follow up * Urine lytes reviewed. Will add urine K for Urine K:Cr ratio. Will also obtain UA to eval for hematuria/proteinuria * Nutrition per primary team - Nepro * Dose medications for renal function * Avoid potential nephrotoxins
[2020-12-25] MEDS ORDERED: CALCIUM GLUCONATE 1,000 MG in SODIUM CHLORIDE 0.9% 100 ML IV ONE (13:00)
[2020-12-25] MEDS: methylPREDNISolone Sod Succinate 125 MG/2 ML INJ IV SCH ×4 (13:41→23:38)
[2020-12-25] MEDS: HEPARIN 5,000 UNIT/1 ML VIAL SUB-Q SCH ×4 (13:53→23:41)
[2020-12-25] MEDS: diphenhydrAMINE 50 MG/ML VIAL IV SCH ×6 (13:53→23:41)
[2020-12-25] MEDS: INSULIN REGULAR, HUMAN 100 UNITS/1 ML SUB-Q SCH ×5 (14:01→23:21)
[2020-12-25] MEDS: IPRATROPIUM/ALBUTEROL SULFATE 3 ML AMPUL.NEB IH SCH ×3 (14:38→19:22)
[2020-12-25] MEDS: BUDESONIDE 0.5 MG/2 ML NEBU IH SCH ×3 (14:38→19:22)
[2020-12-25] MEDS: FAMOTIDINE 20 MG/2 ML INJ IV SCH ×2 (14:46→23:42)
--- NOTE | 2020-12-25 15:20 | Ultrasound Report ---
ULTRASOUND RENAL INDICATION / CLINICAL INFORMATION: Acute renal failure. COMPARISON: None available. FINDINGS: RIGHT KIDNEY: Length = 10.3 cm. - Echogenicity: Normal. - Cortical Thickness: Normal. - Hydronephrosis: None. - Cyst or mass: No significant abnormality. - Stones: None seen. LEFT KIDNEY: Length = 12.4 cm. - Echogenicity: Normal. - Cortical Thickness: Normal. - Hydronephrosis: None. - Cyst or mass: No significant abnormality. - Stones: None seen. URINARY BLADDER: Not well visualized. The patient has a Kelly catheter in place. FREE FLUID: None. ADDITIONAL FINDINGS: None. IMPRESSION: 1. No significant sonographic abnormality. Signer Name: Warner Calix MD Signed: 12/25/2020 3:16 PM Workstation Name: [id number]
--- NOTE | 2020-12-25 15:21 | Progress Note ---
Assessment and Plan Critical care statement The high probability OF a clinically significant sudden or life-threatening deterioration of the cardiorespiratory system and endocrine system required my full and direct attention, intervention and postoperative management. The aggregate critical care time was 40 minutes. The time is in addition to time spent performing reported procedures but includes the followin: Data review and interpretation 2: Patient assessment and monitoring of vital signs 3: Documentation 4:: Medication orders and management - Patient Problems (1) Acute respiratory failure with hypoxia Current Visit: Yes Status: Acute Plan to address problem: Patient intubated in emergency room IV Solu-Medrol IV Pepcid IV Benadryl initiated IV antibiotics for possible aspiration (2) Hyperkalemia Current Visit: Yes Status: Acute Plan to address problem: Etiology unclear Hyperkalemia treated with calcium gluconate IV dextrose and insulin and Kayexalate Nephrology consulted (3) Acute kidney injury Current Visit: Yes Status: Acute Plan to address problem: Possible ATN Gentle hydration and review of the possible volume overload (4) Bilateral pneumonia Current Visit: Yes Status: Acute Plan to address problem: Stop IV antibiotics More in favor of volume overload Check BNP Route Rider follow-up appreciated (5) Anaphylactic reaction Current Visit: Yes Status: Acute Qualifiers: Encounter type: initial encounter Qualified Code(s): T78.2XXA - Anaphylactic shock, unspecified, initial encounter Plan to address problem: Patient treated for anaphylaxis and started on IV Solu-Medrol IV Pepcid and IV Benadryl Patient has a shrimp allergy (6) COPD (chronic obstructive pulmonary disease) Current Visit: Yes Status: Chronic Qualifiers: Emphysema type: unspecified Plan to address problem: Duo nebs [id number] and as needed (7) DVT prophylaxis Current Visit: Yes Status: Acute Plan to address problem: On heparin and GI prophylaxis Subjective Date of service: 12/25/20 Principal diagnosis: Anaphylactic reaction, hyperkalemia, acute renal failure Interval history: 55-year-old male comes in for an acute onset of shortness of breath and swelling of the lips and tongue. Patient stated he was having time for instantly began to have difficulty breathing and swelling of the tongue and lips. Patient has history of severe allergic reactions in addition to asthma and COPD. Patient states he cannot read. Patient states that he is feeling as if he is going to . Patient patient was immediately intubated in the emergency room upon arrival to prevent severe hypoxia and anoxic encephalopathy. Patient is probably allergic to shrimp. No fever or chills Day #2 12/25/2020 Patient is on vent Patient has high potassium and increased creatinine levels Nephrology consult requested Hyperkalemia was treated Objective - Exam Narrative Exam: Patient is intubated and on vent - Constitutional Vitals: Vital Signs - 12hr 12/25/20 12/25/20 12/25/20 04:00 04:11 04:21 Temperature Pulse Rate 93 H 94 H Pulse Rate [ 93 H From Monitor] Respiratory 20 22 20 Rate Blood Pressure 125/67 132/71 O2 Sat by Pulse 99 99 Oximetry 12/25/20 12/25/20 12/25/20 04:22 04:30 04:41 Temperature Pulse Rate 92 H 90 95 H Pulse Rate [ From Monitor] Respiratory 21 20 Rate Blood Pressure 111/72 111/72 O2 Sat by Pulse 99 93 99 Oximetry 12/25/20 12/25/20 12/25/20 04:51 05:00 05:11 Temperature Pulse Rate 93 H 88 92 H Pulse Rate [ From Monitor] Respiratory 27 H 26 H 26 H Rate Blood Pressure 118/68 106/71 106/71 O2 Sat by Pulse 92 88 95 Oximetry 12/25/20 12/25/20 12/25/20 05:21 05:30 05:41 Temperature Pulse Rate 86 85 84 Pulse Rate [ From Monitor] Respiratory 26 H 26 H 26 H Rate Blood Pressure 109/62 108/62 108/62 O2 Sat by Pulse 96 94 99 Oximetry 12/25/20 12/25/20 12/25/20 05:51 06:00 06:11 Temperature Pulse Rate 83 81 82 Pulse Rate [ From Monitor] Respiratory 26 H 26 H 26 H Rate Blood Pressure 111/63 111/65 111/65 O2 Sat by Pulse 100 93 95 Oximetry 12/25/20 12/25/20 12/25/20 06:21 06:30 06:41 Temperature Pulse Rate 84 82 86 Pulse Rate [ From Monitor] Respiratory 26 H 26 H 25 H Rate Blood Pressure 109/67 115/70 115/70 O2 Sat by Pulse 95 56 L 95 Oximetry 12/25/20 12/25/20 12/25/20 06:51 07:00 07:11 Temperature Pulse Rate 86 83 84 Pulse Rate [ From Monitor] Respiratory 26 H 26 H 26 H Rate Blood Pressure 119/74 109/67 109/67 O2 Sat by Pulse 100 95 100 Oximetry 12/25/20 12/25/20 12/25/20 07:21 07:30 07:41 Temperature Pulse Rate 83 83 90 Pulse Rate [ From Monitor] Respiratory 26 H 26 H 26 H Rate Blood Pressure 114/69 114/66 114/66 O2 Sat by Pulse 96 92 75 L Oximetry 12/25/20 12/25/20 12/25/20 07:42 07:50 08:00 Temperature 99.4 F Pulse Rate 86 95 H 98 H Pulse Rate [ From Monitor] Respiratory 13 21 Rate Blood Pressure 114/66 123/84 126/72 O2 Sat by Pulse 55 L 93 100 Oximetry 12/25/20 12/25/20 12/25/20 08:10 08:20 08:30 Temperature Pulse Rate 95 H 98 H 92 H Pulse Rate [ From Monitor] Respiratory 26 H 26 H 26 H Rate Blood Pressure 126/72 135/78 135/78 O2 Sat by Pulse 75 L 79 L 99 Oximetry 12/25/20 12/25/20 12/25/20 08:40 08:50 09:00 Temperature Pulse Rate 93 H 90 90 Pulse Rate [ From Monitor] Respiratory 26 H 26 H 26 H Rate Blood Pressure 135/78 114/66 111/68 O2 Sat by Pulse 99 99 99 Oximetry 12/25/20 12/25/20 12/25/20 09:10 09:20 09:30 Temperature Pulse Rate 92 H 91 H 90 Pulse Rate [ From Monitor] Respiratory 19 25 H 26 H Rate Blood Pressure 111/68 116/70 112/67 O2 Sat by Pulse 98 95 95 Oximetry 12/25/20 12/25/20 12/25/20 09:40 09:50 10:00 Temperature Pulse Rate 88 89 88 Pulse Rate [ From Monitor] Respiratory 26 H 26 H 26 H Rate Blood Pressure 112/67 111/67 110/67 O2 Sat by Pulse 95 95 94 Oximetry 12/25/20 12/25/20 12/25/20 10:10 10:20 10:30 Temperature Pulse Rate 87 90 85 Pulse Rate [ From Monitor] Respiratory 26 H 26 H 26 H Rate Blood Pressure 110/67 128/72 111/63 O2 Sat by Pulse 94 95 95 Oximetry 03/27/21 03/27/21 03/27/21 10:40 10:50 11:00 Temperature Pulse Rate 88 87 85 Pulse Rate [ From Monitor] Respiratory 26 H 26 H 26 H Rate Blood Pressure 111/63 110/67 107/64 O2 Sat by Pulse 94 94 95 Oximetry 12/25/20 12/25/20 12/25/20 11:10 11:20 11:30 Temperature Pulse Rate 86 87 91 H Pulse Rate [ From Monitor] Respiratory 26 H 26 H 19 Rate Blood Pressure 107/64 113/69 113/69 O2 Sat by Pulse 95 95 92 Oximetry 12/25/20 12/25/20 12/25/20 11:40 11:50 12:00 Temperature 99 F Pulse Rate 115 H 117 H 130 H Pulse Rate [ From Monitor] Respiratory 13 16 17 Rate Blood Pressure 172/102 146/78 177/81 O2 Sat by Pulse 88 62 L 96 Oximetry 12/25/20 12/25/20 12/25/20 12:10 12:20 12:25 Temperature Pulse Rate 114 H 108 H 108 H Pulse Rate [ From Monitor] Respiratory 26 H 23 Rate Blood Pressure 177/81 177/81 111/71 O2 Sat by Pulse 96 94 95 Oximetry 12/25/20 12/25/20 12/25/20 12:30 12:40 12:50 Temperature Pulse Rate 106 H 102 H 97 H Pulse Rate [ From Monitor] Respiratory 26 H 26 H 21 Rate Blood Pressure 117/68 117/68 113/69 O2 Sat by Pulse 96 96 96 Oximetry 12/25/20 12/25/20 12/25/20 13:00 13:10 13:20 Temperature Pulse Rate 97 H 95 H 96 H Pulse Rate [ From Monitor] Respiratory 26 H 26 H 25 H Rate Blood Pressure 117/67 117/67 121/74 O2 Sat by Pulse 96 96 96 Oximetry 12/25/20 12/25/20 12/25/20 13:30 13:40 13:50 Temperature Pulse Rate 91 H 91 H Pulse Rate [ From Monitor] Respiratory 16 26 H Rate Blood Pressure 124/70 124/70 122/72 O2 Sat by Pulse 95 100 96 Oximetry 12/25/20 12/25/20 12/25/20 14:00 14:10 14:20 Temperature Pulse Rate 90 91 H 91 H Pulse Rate [ From Monitor] Respiratory 26 H 26 H 26 H Rate Blood Pressure 122/71 122/72 131/75 O2 Sat by Pulse 95 94 95 Oximetry 12/25/20 12/25/20 12/25/20 14:30 14:41 14:51 Temperature Pulse Rate 89 88 100 H Pulse Rate [ From Monitor] Respiratory 26 H 26 H 26 H Rate Blood Pressure 121/74 131/75 123/72 O2 Sat by Pulse 94 95 96 Oximetry 12/25/20 12/25/20 15:01 15:04 Temperature Pulse Rate 114 H 118 H Pulse Rate [ From Monitor] Respiratory 27 H Rate Blood Pressure 172/96 172/96 O2 Sat by Pulse 94 95 Oximetry General appearance: Present: mild distress, well-nourished - EENT Eyes: PERRL, EOM intact ENT: hearing intact, clear oral mucosa Ears: bilateral: normal - Neck Neck: supple, normal ROM - Respiratory Respiratory effort: normal Respiratory: bilateral: CTA - Breasts Breasts: normal - Cardiovascular Heart rate: 88 Rhythm: regular Heart Sounds: Present: S1 & S2. Absent: gallop, rub Extremities: pulses intact, No edema, normal color, Full ROM - Gastrointestinal General gastrointestinal: Present: soft, non-tender, non-distended, normal bowel sounds - Genitourinary Male genitourinary: normal - Integumentary Integumentary: clear, warm, dry - Musculoskeletal Musculoskeletal: generalized weakness (Intubated) - Neurologic Neurologic: other (Intubated) - Psychiatric Psychiatric: other (Patient is intubated) - Labs CBC & Chem 7: 12/25/20 04:44 12/26/20 05:23 Labs: Abnormal lab results 12/24/20 12/24/20 12/24/20 Range/Units 16:48 16:48 18:05 WBC (4.5-11.0) K/mm3 RBC 5.05 H (3.65-5.03) M/mm3 Hgb (11.8-15.2) gm/dl Hct (35.5-45.6) % Seg Neuts % (Manual) 30.0 L (40.0-70.0) % Lymphocytes % (Manual) 53.0 H (13.4-35.0) % Monocytes % (Manual) 8.0 H (0.0-7.3) % Eosinophils % (Manual) 7.0 H (0.0-4.3) % Basophils % (Manual) 2.0 H (0.0-1.8) % Seg Neutrophils # Man (1.8-7.7) K/mm3 Lymphocytes # (Manual) (1.2-5.4) K/mm3 ABG pH 7.275 L (7.350-7.450) pH Units ABG pO2 257.7 H (80.0-90.0) mm Hg ABG HCO3 28.3 H (20.0-26.0) mmol/L ABG O2 Saturation 99.4 H (95.0-99.0) % Sodium (137-145) mmol/L Potassium 3.5 L (3.6-5.0) mmol/L BUN 8 L (9-20) mg/dL Creatinine (0.8-1.3) mg/dL Glucose 147 H (75-100) mg/dL POC Glucose (70-105) mg/dL Hemoglobin A1c (4-6) % Total Creatine Kinase (55-170) units/L CK-MB (CK-2) (0.0-4.0) ng/mL Urine Creatinine (0.1-20.0) mg/dL 12/24/20 12/25/20 12/25/20 Range/Units 23:16 04:44 04:44 WBC 15.3 H (4.5-11.0) K/mm3 RBC 5.15 H (3.65-5.03) M/mm3 Hgb 15.3 H (11.8-15.2) gm/dl Hct 45.9 H (35.5-45.6) % Seg Neuts % (Manual) 91.0 H (40.0-70.0) % Lymphocytes % (Manual) 4.0 L (13.4-35.0) % Monocytes % (Manual) (0.0-7.3) % Eosinophils % (Manual) (0.0-4.3) % Basophils % (Manual) (0.0-1.8) % Seg Neutrophils # Man 13.9 H (1.8-7.7) K/mm3 Lymphocytes # (Manual) 0.6 L (1.2-5.4) K/mm3 ABG pH (7.350-7.450) pH Units ABG pO2 (80.0-90.0) mm Hg ABG HCO3 (20.0-26.0) mmol/L ABG O2 Saturation (95.0-99.0) % Sodium 136 L (137-145) mmol/L Potassium 7.4 H* D (3.6-5.0) mmol/L BUN (9-20) mg/dL Creatinine 2.4 H D (0.8-1.3) mg/dL Glucose 162 H (75-100) mg/dL POC Glucose 229 H (70-105) mg/dL Hemoglobin A1c (4-6) % Total Creatine Kinase (55-170) units/L CK-MB (CK-2) (0.0-4.0) ng/mL Urine Creatinine (0.1-20.0) mg/dL 12/25/20 12/25/20 12/25/20 Range/Units 04:44 06:19 06:32 WBC (4.5-11.0) K/mm3 RBC (3.65-5.03) M/mm3 Hgb (11.8-15.2) gm/dl Hct (35.5-45.6) % Seg Neuts % (Manual) (40.0-70.0) % Lymphocytes % (Manual) (13.4-35.0) % Monocytes % (Manual) (0.0-7.3) % Eosinophils % (Manual) (0.0-4.3) % Basophils % (Manual) (0.0-1.8) % Seg Neutrophils # Man (1.8-7.7) K/mm3 Lymphocytes # (Manual) (1.2-5.4) K/mm3 ABG pH (7.350-7.450) pH Units ABG pO2 (80.0-90.0) mm Hg ABG HCO3 (20.0-26.0) mmol/L ABG O2 Saturation (95.0-99.0) % Sodium 135 L (137-145) mmol/L Potassium 6.9 H* (3.6-5.0) mmol/L BUN 21 H (9-20) mg/dL Creatinine 2.3 H (0.8-1.3) mg/dL Glucose 180 H (75-100) mg/dL POC Glucose 172 H (70-105) mg/dL Hemoglobin A1c 6.4 H (4-6) % Total Creatine Kinase (55-170) units/L CK-MB (CK-2) (0.0-4.0) ng/mL Urine Creatinine (0.1-20.0) mg/dL 12/25/20 12/25/20 12/25/20 Range/Units 06:34 07:47 09:55 WBC (4.5-11.0) K/mm3 RBC (3.65-5.03) M/mm3 Hgb (11.8-15.2) gm/dl Hct (35.5-45.6) % Seg Neuts % (Manual) (40.0-70.0) % Lymphocytes % (Manual) (13.4-35.0) % Monocytes % (Manual) (0.0-7.3) % Eosinophils % (Manual) (0.0-4.3) % Basophils % (Manual) (0.0-1.8) % Seg Neutrophils # Man (1.8-7.7) K/mm3 Lymphocytes # (Manual) (1.2-5.4) K/mm3 ABG pH (7.350-7.450) pH Units ABG pO2 (80.0-90.0) mm Hg ABG HCO3 (20.0-26.0) mmol/L ABG O2 Saturation (95.0-99.0) % Sodium (137-145) mmol/L Potassium 5.6 H (3.6-5.0) mmol/L BUN 22 H (9-20) mg/dL Creatinine 1.9 H (0.8-1.3) mg/dL Glucose 158 H (75-100) mg/dL POC Glucose (70-105) mg/dL Hemoglobin A1c (4-6) % Total Creatine Kinase 569 H 569 H (55-170) units/L CK-MB (CK-2) 4.8 H 4.9 H (0.0-4.0) ng/mL Urine Creatinine (0.1-20.0) mg/dL 12/25/20 12/25/20 Range/Units 10:48 12:27 WBC (4.5-11.0) K/mm3 RBC (3.65-5.03) M/mm3 Hgb (11.8-15.2) gm/dl Hct (35.5-45.6) % Seg Neuts % (Manual) (40.0-70.0) % Lymphocytes % (Manual) (13.4-35.0) % Monocytes % (Manual) (0.0-7.3) % Eosinophils % (Manual) (0.0-4.3) % Basophils % (Manual) (0.0-1.8) % Seg Neutrophils # Man (1.8-7.7) K/mm3 Lymphocytes # (Manual) (1.2-5.4) K/mm3 ABG pH (7.350-7.450) pH Units ABG pO2 (80.0-90.0) mm Hg ABG HCO3 (20.0-26.0) mmol/L ABG O2 Saturation (95.0-99.0) % Sodium (137-145) mmol/L Potassium (3.6-5.0) mmol/L BUN (9-20) mg/dL Creatinine (0.8-1.3) mg/dL Glucose (75-100) mg/dL POC Glucose 226 H (70-105) mg/dL Hemoglobin A1c (4-6) % Total Creatine Kinase (55-170) units/L CK-MB (CK-2) (0.0-4.0) ng/mL Urine Creatinine 263.9 H (0.1-20.0) mg/dL HEART Score - HEART Score Age: 45-65 Risk factors: No known risk factors - Critical Actions Critical Actions: 0-3 pts:0.9-1.7%risk of adverse cardiac event.Candidate for discharge
[2020-12-25 15:31] LABS: Calcium 8.5 mg/dL (8.4-10.2)
[2020-12-25] MEDS ORDERED: SODIUM POLYSTYRENE 15 GM/60 ML ORAL LIQD PO NR (16:09)
[2020-12-25] MEDS ORDERED: LACTATED RINGERS 1,000 ML IV ONE (16:10)
[2020-12-25 18:36] LABS: Calcium Oxalate Crystals,Urine FEW; Mucus,Urine 3+ /HPF
[2020-12-25 18:43] LABS: Bilirubin,Urine NEG (Negative); Blood,Urine LG (Negative); Color,Urine Yellow (Yellow); Urobilinogen,Urine < 2.0 mg/dL (<2.0)
[2020-12-25 19:47] LABS: Calcium 8.1 mg/dL (8.4-10.2)
[2020-12-25] MEDS ORDERED: SODIUM POLYSTYRENE 15 GM/60 ML ORAL LIQD PR ONE (21:34)
[2020-12-26] MEDS: INSULIN REGULAR, HUMAN 100 UNITS/1 ML SUB-Q SCH ×6 (02:13→21:48)
[2020-12-26] MEDS: SODIUM CHLORIDE 0.9% 1000 ML 1,000 ML IV SCH ×2 (02:26→12:32)
--- NOTE | 2020-12-26 04:06 | XRay Report ---
CHEST 1 VIEW INDICATION: follow up respiratory failure COMPARISON: One day prior. FINDINGS: Support devices: Endotracheal tube in good position. Nasogastric tube passes well into the stomach. Heart: Stable. Lungs/Pleura: Pleural parenchymal disease in the right base is markedly improved and essentially reso lved. Some disease persists in the left base, but this also appears improved. IMPRESSION: 1. Definite improvement. Signer Name: Lito Chavez MD Signed: 12/26/2020 4:01 AM Workstation Name: [id number]
[2020-12-26] MEDS: diphenhydrAMINE 50 MG/ML VIAL IV SCH ×3 (05:31→17:36)
[2020-12-26] MEDS: methylPREDNISolone Sod Succinate 125 MG/2 ML INJ IV SCH ×3 (05:31→21:32)
[2020-12-26 06:01] LABS: BUN/Creatinine Ratio 22; Blood Urea Nitrogen 24 mg/dL (9-20); Calcium 8.1 mg/dL (8.4-10.2); Hemolysis Index 8
[2020-12-26] MEDS: fentaNYL DRIP Premix 2,000 MCG/100 ML BAG IV SCH (07:36)
[2020-12-26] MEDS: BUDESONIDE 0.5 MG/2 ML NEBU IH SCH ×2 (08:05→21:16)
[2020-12-26] MEDS: HEPARIN 5,000 UNIT/1 ML VIAL SUB-Q SCH ×2 (09:26→21:32)
[2020-12-26] MEDS: FAMOTIDINE 20 MG/2 ML INJ IV SCH ×2 (09:27→21:32)
[2020-12-26] MEDS: IPRATROPIUM/ALBUTEROL SULFATE 3 ML AMPUL.NEB IH SCH ×2 (09:34→12:06)
--- NOTE | 2020-12-26 11:08 | Progress Note ---
Assessment and Plan 55 y/o male with acute respiratory failure thought secondary to allergic reaction with angioedema 12/26/20: Extubate today. May need bipap PRN. Continue steroids, benadryl and pepcid through tomorrow. Renal function is improving. K better despite lack of BM. Was given insulin therapy. Will assess swallowing function post extubatio n. Follow up bilateral ultrasound of kidneys. BNP was normal 1. Agree with IV steroids at current dosing 2. Agree with benadryl at q6 hour dosing 3. Agree with BID Pepcid 4. Will stop IV abx therapy all together 5. Ordered bilateral renal ultrasound as well as urine lytes. Continue fisher catheter for now. Would go ahead and order renal consult in case they feel patient needs HD. 6. Ordered BNP given CXR findings 7. Will repeat Chemistry this afternoon at 1400, BNP can be drawn then. CCT 31 minutes. Subjective Date of service: 12/26/20 Principal diagnosis: Anaphylactic reaction, hyperkalemia, acute renal failure Interval history: Awake and alert on Diprovan and Fent drip. has called several times. Patient is slightly anxious and agitated today. Wants to write. At bedside with RT let cuff down and audible air leak heard with loss of volumes. Objective Vital Signs - 12hr 12/25/20 12/25/20 12/25/20 23:11 23:21 23:25 Temperature Pulse Rate 102 H 99 H 94 H Pulse Rate [ Right Throughout] Respiratory 15 21 Rate Respiratory Rate [Right Throughout] Blood Pressure 121/71 127/70 121/71 O2 Sat by Pulse 97 97 97 Oximetry 12/25/20 12/25/20 12/25/20 23:31 23:41 23:51 Temperature Pulse Rate 99 H 109 H 100 H Pulse Rate [ Right Throughout] Respiratory 12 13 23 Rate Respiratory Rate [Right Throughout] Blood Pressure 128/77 128/77 130/80 O2 Sat by Pulse 96 96 96 Oximetry 12/26/20 12/26/20 12/26/20 00:00 00:07 00:11 Temperature 98.9 F Pulse Rate 99 H 97 H 95 H Pulse Rate [ Right Throughout] Respiratory 30 H 23 26 H Rate Respiratory Rate [Right Throughout] Blood Pressure 123/76 123/76 123/76 O2 Sat by Pulse 96 96 95 Oximetry 12/26/20 12/26/20 12/26/20 00:21 00:30 00:41 Temperature Pulse Rate 95 H 92 H 93 H Pulse Rate [ Right Throughout] Respiratory 27 H 30 H 26 H Rate Respiratory Rate [Right Throughout] Blood Pressure 121/75 115/76 115/76 O2 Sat by Pulse 97 95 97 Oximetry 12/26/20 12/26/20 12/26/20 00:51 01:00 01:11 Temperature Pulse Rate 93 H 93 H 87 Pulse Rate [ Right Throughout] Respiratory 18 30 H 30 H Rate Respiratory Rate [Right Throughout] Blood Pressure 126/79 123/71 123/71 O2 Sat by Pulse 97 96 97 Oximetry 12/26/20 12/26/20 12/26/20 01:21 01:30 01:41 Temperature Pulse Rate 88 92 H 87 Pulse Rate [ Right Throughout] Respiratory 16 23 30 H Rate Respiratory Rate [Right Throughout] Blood Pressure 117/68 116/77 116/77 O2 Sat by Pulse 96 96 98 Oximetry 12/26/20 12/26/20 12/26/20 01:51 02:00 02:11 Temperature Pulse Rate 88 90 87 Pulse Rate [ Right Throughout] Respiratory 30 H 29 H 29 H Rate Respiratory Rate [Right Throughout] Blood Pressure 115/69 121/73 121/73 O2 Sat by Pulse 97 97 97 Oximetry 12/26/20 12/26/20 12/26/20 02:21 02:30 02:41 Temperature Pulse Rate 90 95 H 94 H Pulse Rate [ Right Throughout] Respiratory 30 H 30 H 26 H Rate Respiratory Rate [Right Throughout] Blood Pressure 117/70 124/75 124/75 O2 Sat by Pulse 97 97 97 Oximetry 12/26/20 12/26/20 12/26/20 02:51 03:00 03:10 Temperature Pulse Rate 91 H 89 87 Pulse Rate [ Right Throughout] Respiratory 29 H 30 H Rate Respiratory Rate [Right Throughout] Blood Pressure 117/69 106/69 106/69 O2 Sat by Pulse 97 97 97 Oximetry 12/26/20 12/26/20 12/26/20 03:11 03:21 03:30 Temperature 99.5 F Pulse Rate 90 102 H 91 H Pulse Rate [ Right Throughout] Respiratory 30 H 19 29 H Rate Respiratory Rate [Right Throughout] Blood Pressure 106/69 123/71 116/65 O2 Sat by Pulse 97 99 97 Oximetry 12/26/20 12/26/20 12/26/20 03:41 03:51 04:00 Temperature Pulse Rate 90 90 94 H Pulse Rate [ Right Throughout] Respiratory 19 21 20 Rate Respiratory Rate [Right Throughout] Blood Pressure 116/65 125/64 130/77 O2 Sat by Pulse 99 98 96 Oximetry 12/26/20 12/26/20 12/26/20 04:11 04:21 04:30 Temperature Pulse Rate 89 89 86 Pulse Rate [ Right Throughout] Respiratory 16 30 H 30 H Rate Respiratory Rate [Right Throughout] Blood Pressure 130/77 121/75 115/74 O2 Sat by Pulse 94 94 95 Oximetry 12/26/20 12/26/20 12/26/20 04:41 04:51 05:00 Temperature Pulse Rate 86 90 89 Pulse Rate [ Right Throughout] Respiratory 30 H 30 H 30 H Rate Respiratory Rate [Right Throughout] Blood Pressure 115/74 130/76 119/72 O2 Sat by Pulse 92 93 93 Oximetry 12/26/20 12/26/20 12/26/20 05:11 05:21 05:31 Temperature Pulse Rate 88 95 H 92 H Pulse Rate [ Right Throughout] Respiratory 30 H 28 H 16 Rate Respiratory Rate [Right Throughout] Blood Pressure 119/72 119/68 133/70 O2 Sat by Pulse 93 97 95 Oximetry 12/26/20 12/26/20 12/26/20 05:41 05:51 06:00 Temperature Pulse Rate 95 H 89 86 Pulse Rate [ Right Throughout] Respiratory 22 30 H 27 H Rate Respiratory Rate [Right Throughout] Blood Pressure 130/76 131/68 129/70 O2 Sat by Pulse 95 94 95 Oximetry 12/26/20 12/26/20 12/26/20 06:11 06:21 06:30 Temperature Pulse Rate 84 84 83 Pulse Rate [ Right Throughout] Respiratory 30 H 31 H 30 H Rate Respiratory Rate [Right Throughout] Blood Pressure 129/70 118/74 124/74 O2 Sat by Pulse 95 95 97 Oximetry 12/26/20 12/26/20 12/26/20 06:41 06:51 07:00 Temperature Pulse Rate 86 83 83 Pulse Rate [ Right Throughout] Respiratory 22 27 H 30 H Rate Respiratory Rate [Right Throughout] Blood Pressure 124/74 132/83 127/74 O2 Sat by Pulse 95 95 94 Oximetry 12/26/20 12/26/20 12/26/20 07:11 07:21 07:22 Temperature Pulse Rate 80 83 87 Pulse Rate [ Right Throughout] Respiratory 22 30 H Rate Respiratory Rate [Right Throughout] Blood Pressure 127/74 126/73 126/73 O2 Sat by Pulse 94 95 98 Oximetry 12/26/20 12/26/20 12/26/20 07:30 07:41 07:51 Temperature Pulse Rate 87 81 86 Pulse Rate [ Right Throughout] Respiratory 30 H 31 H 20 Rate Respiratory Rate [Right Throughout] Blood Pressure 139/74 139/74 131/72 O2 Sat by Pulse 95 94 95 Oximetry 12/26/20 12/26/20 12/26/20 08:00 08:11 08:21 Temperature 98.8 F Pulse Rate 80 82 84 Pulse Rate [ 90 Right Throughout] Respiratory 23 20 30 H Rate Respiratory 30 H Rate [Right Throughout] Blood Pressure 125/74 125/74 112/76 O2 Sat by Pulse 94 96 95 Oximetry 12/26/20 12/26/20 12/26/20 08:30 08:41 08:51 Temperature Pulse Rate 90 84 88 Pulse Rate [ Right Throughout] Respiratory 29 H 21 30 H Rate Respiratory Rate [Right Throughout] Blood Pressure 129/75 129/75 134/69 O2 Sat by Pulse 95 93 98 Oximetry 12/26/20 12/26/20 12/26/20 09:00 09:11 09:21 Temperature Pulse Rate 90 89 98 H Pulse Rate [ Right Throughout] Respiratory 29 H 26 H 30 H Rate Respiratory Rate [Right Throughout] Blood Pressure 132/74 132/74 165/90 O2 Sat by Pulse 94 96 93 Oximetry 12/26/20 12/26/20 12/26/20 09:30 09:41 09:51 Temperature Pulse Rate 89 85 82 Pulse Rate [ Right Throughout] Respiratory 30 H 30 H 30 H Rate Respiratory Rate [Right Throughout] Blood Pressure 112/70 112/70 109/66 O2 Sat by Pulse 91 93 93 Oximetry 12/26/20 12/26/20 12/26/20 10:00 10:11 10:21 Temperature Pulse Rate 79 79 77 Pulse Rate [ Right Throughout] Respiratory 30 H 30 H 30 H Rate Respiratory Rate [Right Throughout] Blood Pressure 109/68 109/68 110/73 O2 Sat by Pulse 94 94 94 Oximetry 12/26/20 10:30 Temperature Pulse Rate 80 Pulse Rate [ Right Throughout] Respiratory 30 H Rate Respiratory Rate [Right Throughout] Blood Pressure 111/70 O2 Sat by Pulse 94 Oximetry Constitutional: no acute distress, alert, other (obese) ENT: other (orally intubated) Neck: supple, other (large in circumference) Effort: normal Ascultation: Bilateral: diminished breath sounds Percussion: Bilateral: not dull Cardiovascular: regular rate and rhythm Gastrointestinal: other (distended, mildly firm) Extremities: no edema Neurologic: unable to assess CBC and BMP: 12/25/20 04:44 12/26/20 05:23 ABG, PT/INR, D-dimer: ABG ABG pH 7.279 (7.320-7.450) L 12/26/20 03:58 POC ABG pCO2 60.9 mmHg (32.0-48.0) H 12/26/20 03:58 ABG pCO2 62.4 mm Hg 12/24/20 18:05 POC ABG pO2 148.4 mmHg (83-108) H 12/26/20 03:58 ABG pO2 257.7 mm Hg (80.0-90.0) H 12/24/20 18:05 POC ABG HCO3 27.9 12/26/20 03:58 ABG O2 Saturation 99.2 (0-100) 12/26/20 03:58 Abnormal lab findings: Abnormal Labs 12/24/20 12/24/20 12/24/20 16:48 16:48 18:05 WBC RBC 5.05 H Hgb Hct Seg Neuts % (Manual) 30.0 L Lymphocytes % (Manual) 53.0 H Monocytes % (Manual) 8.0 H Eosinophils % (Manual) 7.0 H Basophils % (Manual) 2.0 H Seg Neutrophils # Man Lymphocytes # (Manual) ABG pH 7.275 L POC ABG pCO2 POC ABG pO2 ABG pO2 257.7 H ABG HCO3 28.3 H ABG O2 Saturation 99.4 H ABG Oxyhemoglobin ABG Potassium ABG Glucose Sodium Potassium 3.5 L BUN 8 L Creatinine Glucose 147 H POC Glucose Hemoglobin A1c Calcium Total Creatine Kinase CK-MB (CK-2) Arterial Blood Glucose Urine WBC (Auto) Urine Creatinine 12/24/20 12/25/20 12/25/20 23:16 04:44 04:44 WBC 15.3 H RBC 5.15 H Hgb 15.3 H Hct 45.9 H Seg Neuts % (Manual) 91.0 H Lymphocytes % (Manual) 4.0 L Monocytes % (Manual) Eosinophils % (Manual) Basophils % (Manual) Seg Neutrophils # Man 13.9 H Lymphocytes # (Manual) 0.6 L ABG pH POC ABG pCO2 POC ABG pO2 ABG pO2 ABG HCO3 ABG O2 Saturation ABG Oxyhemoglobin ABG Potassium ABG Glucose Sodium 136 L Potassium 7.4 H* D BUN Creatinine 2.4 H D Glucose 162 H POC Glucose 229 H Hemoglobin A1c Calcium Total Creatine Kinase CK-MB (CK-2) Arterial Blood Glucose Urine WBC (Auto) Urine Creatinine 12/25/20 12/25/20 12/25/20 04:44 06:19 06:32 WBC RBC Hgb Hct Seg Neuts % (Manual) Lymphocytes % (Manual) Monocytes % (Manual) Eosinophils % (Manual) Basophils % (Manual) Seg Neutrophils # Man Lymphocytes # (Manual) ABG pH POC ABG pCO2 POC ABG pO2 ABG pO2 ABG HCO3 ABG O2 Saturation ABG Oxyhemoglobin ABG Potassium ABG Glucose Sodium 135 L Potassium 6.9 H* BUN 21 H Creatinine 2.3 H Glucose 180 H POC Glucose 172 H Hemoglobin A1c 6.4 H Calcium Total Creatine Kinase CK-MB (CK-2) Arterial Blood Glucose Urine WBC (Auto) Urine Creatinine 12/25/20 12/25/20 12/25/20 06:34 07:47 09:55 WBC RBC Hgb Hct Seg Neuts % (Manual) Lymphocytes % (Manual) Monocytes % (Manual) Eosinophils % (Manual) Basophils % (Manual) Seg Neutrophils # Man Lymphocytes # (Manual) ABG pH POC ABG pCO2 POC ABG pO2 ABG pO2 ABG HCO3 ABG O2 Saturation ABG Oxyhemoglobin ABG Potassium ABG Glucose Sodium Potassium 5.6 H BUN 22 H Creatinine 1.9 H Glucose 158 H POC Glucose Hemoglobin A1c Calcium Total Creatine Kinase 569 H 569 H CK-MB (CK-2) 4.8 H 4.9 H Arterial Blood Glucose Urine WBC (Auto) Urine Creatinine 12/25/20 12/25/20 12/25/20 10:48 12:27 14:30 WBC RBC Hgb Hct Seg Neuts % (Manual) Lymphocytes % (Manual) Monocytes % (Manual) Eosinophils % (Manual) Basophils % (Manual) Seg Neutrophils # Man Lymphocytes # (Manual) ABG pH POC ABG pCO2 POC ABG pO2 ABG pO2 ABG HCO3 ABG O2 Saturation ABG Oxyhemoglobin ABG Potassium ABG Glucose Sodium Potassium 6.3 H* BUN 25 H Creatinine 1.7 H Glucose 152 H POC Glucose 226 H Hemoglobin A1c Calcium Total Creatine Kinase CK-MB (CK-2) Arterial Blood Glucose Urine WBC (Auto) Urine Creatinine 263.9 H 12/25/20 12/25/20 12/25/20 15:33 17:37 17:53 WBC RBC Hgb Hct Seg Neuts % (Manual) Lymphocytes % (Manual) Monocytes % (Manual) Eosinophils % (Manual) Basophils % (Manual) Seg Neutrophils # Man Lymphocytes # (Manual) ABG pH 7.177 L POC ABG pCO2 73.1 H POC ABG pO2 ABG pO2 ABG HCO3 ABG O2 Saturation ABG Oxyhemoglobin ABG Potassium 5.8 H ABG Glucose 152 H Sodium Potassium BUN Creatinine Glucose POC Glucose 146 H Hemoglobin A1c Calcium Total Creatine Kinase CK-MB (CK-2) Arterial Blood Glucose 152 H Urine WBC (Auto) 48.0 H Urine Creatinine 12/25/20 12/25/20 12/26/20 19:12 23:17 02:13 WBC RBC Hgb Hct Seg Neuts % (Manual) Lymphocytes % (Manual) Monocytes % (Manual) Eosinophils % (Manual) Basophils % (Manual) Seg Neutrophils # Man Lymphocytes # (Manual) ABG pH POC ABG pCO2 POC ABG pO2 ABG pO2 ABG HCO3 ABG O2 Saturation ABG Oxyhemoglobin ABG Potassium ABG Glucose Sodium Potassium 5.4 H BUN 26 H Creatinine 1.5 H Glucose 146 H POC Glucose 188 H 213 H Hemoglobin A1c Calcium 8.1 L Total Creatine Kinase 829 H CK-MB (CK-2) Arterial Blood Glucose Urine WBC (Auto) Urine Creatinine 12/26/20 12/26/20 12/26/20 03:58 05:17 05:23 WBC RBC Hgb Hct Seg Neuts % (Manual) Lymphocytes % (Manual) Monocytes % (Manual) Eosinophils % (Manual) Basophils % (Manual) Seg Neutrophils # Man Lymphocytes # (Manual) ABG pH 7.279 L POC ABG pCO2 60.9 H POC ABG pO2 148.4 H ABG pO2 ABG HCO3 ABG O2 Saturation ABG Oxyhemoglobin 98.1 H ABG Potassium 4.9 H ABG Glucose 174 H Sodium Potassium BUN 24 H Creatinine Glucose 184 H POC Glucose 168 H Hemoglobin A1c Calcium 8.1 L Total Creatine Kinase CK-MB (CK-2) Arterial Blood Glucose 174 H Urine WBC (Auto) Urine Creatinine
--- NOTE | 2020-12-26 14:45 | Progress Note ---
Assessment and Plan Impression: * Acute kidney injury - resolved --Renal ultrasound: Right 10.3, Left 12.4 (Dec 25) * Hyperkalemia * Acute respiratory failure secondary to anaphylactic reaction * Anaphylaxis * Hematuria * Proteinuria Plan: * Renal function improved; SHAKEEL resolved * Hyperkalemia resolved w/ medical management * Encourage po hydration * Await pending serologies * Dose medications for renal function * Avoid potential nephrotoxins Subjective Date of service: 12/26/20 Principal diagnosis: Anaphylactic reaction, hyperkalemia, acute renal failure Interval history: Patient is extubated. He has no complaints Objective - Vital Signs Vital signs: Vital Signs - 12hr 12/26/20 12/26/20 12/26/20 02:51 03:00 03:10 Temperature Pulse Rate 91 H 89 87 Pulse Rate [ Right Throughout] Respiratory 29 H 30 H Rate Respiratory Rate [Right Throughout] Blood Pressure 117/69 106/69 106/69 O2 Sat by Pulse 97 97 97 Oximetry 12/26/20 12/26/20 12/26/20 03:11 03:21 03:30 Temperature 99.5 F Pulse Rate 90 102 H 91 H Pulse Rate [ Right Throughout] Respiratory 30 H 19 29 H Rate Respiratory Rate [Right Throughout] Blood Pressure 106/69 123/71 116/65 O2 Sat by Pulse 97 99 97 Oximetry 12/26/20 12/26/20 12/26/20 03:41 03:51 04:00 Temperature Pulse Rate 90 90 94 H Pulse Rate [ Right Throughout] Respiratory 19 21 20 Rate Respiratory Rate [Right Throughout] Blood Pressure 116/65 125/64 130/77 O2 Sat by Pulse 99 98 96 Oximetry 12/26/20 12/26/20 12/26/20 04:11 04:21 04:30 Temperature Pulse Rate 89 89 86 Pulse Rate [ Right Throughout] Respiratory 16 30 H 30 H Rate Respiratory Rate [Right Throughout] Blood Pressure 130/77 121/75 115/74 O2 Sat by Pulse 94 94 95 Oximetry 12/26/20 12/26/20 12/26/20 04:41 04:51 05:00 Temperature Pulse Rate 86 90 89 Pulse Rate [ Right Throughout] Respiratory 30 H 30 H 30 H Rate Respiratory Rate [Right Throughout] Blood Pressure 115/74 130/76 119/72 O2 Sat by Pulse 92 93 93 Oximetry 12/26/20 12/26/20 12/26/20 05:11 05:21 05:31 Temperature Pulse Rate 88 95 H 92 H Pulse Rate [ Right Throughout] Respiratory 30 H 28 H 16 Rate Respiratory Rate [Right Throughout] Blood Pressure 119/72 119/68 133/70 O2 Sat by Pulse 93 97 95 Oximetry 12/26/20 12/26/20 12/26/20 05:41 05:51 06:00 Temperature Pulse Rate 95 H 89 86 Pulse Rate [ Right Throughout] Respiratory 22 30 H 27 H Rate Respiratory Rate [Right Throughout] Blood Pressure 130/76 131/68 129/70 O2 Sat by Pulse 95 94 95 Oximetry 12/26/20 12/26/20 12/26/20 06:11 06:21 06:30 Temperature Pulse Rate 84 84 83 Pulse Rate [ Right Throughout] Respiratory 30 H 31 H 30 H Rate Respiratory Rate [Right Throughout] Blood Pressure 129/70 118/74 124/74 O2 Sat by Pulse 95 95 97 Oximetry 12/26/20 12/26/20 12/26/20 06:41 06:51 07:00 Temperature Pulse Rate 86 83 83 Pulse Rate [ Right Throughout] Respiratory 22 27 H 30 H Rate Respiratory Rate [Right Throughout] Blood Pressure 124/74 132/83 127/74 O2 Sat by Pulse 95 95 94 Oximetry 12/26/20 12/26/20 12/26/20 07:11 07:21 07:22 Temperature Pulse Rate 80 83 87 Pulse Rate [ Right Throughout] Respiratory 22 30 H Rate Respiratory Rate [Right Throughout] Blood Pressure 127/74 126/73 126/73 O2 Sat by Pulse 94 95 98 Oximetry 12/26/20 12/26/20 12/26/20 07:30 07:41 07:51 Temperature Pulse Rate 87 81 86 Pulse Rate [ Right Throughout] Respiratory 30 H 31 H 20 Rate Respiratory Rate [Right Throughout] Blood Pressure 139/74 139/74 131/72 O2 Sat by Pulse 95 94 95 Oximetry 12/26/20 12/26/20 12/26/20 08:00 08:11 08:21 Temperature 98.8 F Pulse Rate 80 82 84 Pulse Rate [ 90 Right Throughout] Respiratory 23 20 30 H Rate Respiratory 30 H Rate [Right Throughout] Blood Pressure 125/74 125/74 112/76 O2 Sat by Pulse 94 96 95 Oximetry 12/26/20 12/26/20 12/26/20 08:30 08:41 08:51 Temperature Pulse Rate 90 84 88 Pulse Rate [ Right Throughout] Respiratory 29 H 21 30 H Rate Respiratory Rate [Right Throughout] Blood Pressure 129/75 129/75 134/69 O2 Sat by Pulse 95 93 98 Oximetry 12/26/20 12/26/20 12/26/20 09:00 09:11 09:21 Temperature Pulse Rate 90 89 98 H Pulse Rate [ Right Throughout] Respiratory 29 H 26 H 30 H Rate Respiratory Rate [Right Throughout] Blood Pressure 132/74 132/74 165/90 O2 Sat by Pulse 94 96 93 Oximetry 12/26/20 12/26/20 12/26/20 09:30 09:41 09:51 Temperature Pulse Rate 89 85 82 Pulse Rate [ Right Throughout] Respiratory 30 H 30 H 30 H Rate Respiratory Rate [Right Throughout] Blood Pressure 112/70 112/70 109/66 O2 Sat by Pulse 91 93 93 Oximetry 12/26/20 12/26/20 12/26/20 10:00 10:11 10:21 Temperature Pulse Rate 79 79 77 Pulse Rate [ Right Throughout] Respiratory 30 H 30 H 30 H Rate Respiratory Rate [Right Throughout] Blood Pressure 109/68 109/68 110/73 O2 Sat by Pulse 94 94 94 Oximetry 12/26/20 12/26/20 12/26/20 10:30 10:41 10:51 Temperature Pulse Rate 80 85 103 H Pulse Rate [ Right Throughout] Respiratory 30 H 29 H 16 Rate Respiratory Rate [Right Throughout] Blood Pressure 111/70 110/73 123/75 O2 Sat by Pulse 94 95 97 Oximetry 12/26/20 12/26/20 12/26/20 11:01 11:11 11:21 Temperature Pulse Rate 79 106 H 105 H Pulse Rate [ Right Throughout] Respiratory 29 H 14 13 Rate Respiratory Rate [Right Throughout] Blood Pressure 150/94 150/94 156/94 O2 Sat by Pulse 90 96 94 Oximetry 12/26/20 12/26/20 12/26/20 11:31 11:41 11:51 Temperature Pulse Rate 99 H 95 H Pulse Rate [ Right Throughout] Respiratory 11 L 16 15 Rate Respiratory Rate [Right Throughout] Blood Pressure 139/78 139/78 139/78 O2 Sat by Pulse 95 95 95 Oximetry 12/26/20 12/26/20 12/26/20 12:00 12:01 12:11 Temperature Pulse Rate 88 103 H 97 H Pulse Rate [ Right Throughout] Respiratory 14 13 Rate Respiratory Rate [Right Throughout] Blood Pressure 139/78 139/78 O2 Sat by Pulse 98 96 96 Oximetry 12/26/20 12/26/20 12/26/20 12:21 12:31 12:41 Temperature Pulse Rate 107 H 98 H 94 H Pulse Rate [ Right Throughout] Respiratory 19 19 12 Rate Respiratory Rate [Right Throughout] Blood Pressure 139/78 139/78 139/78 O2 Sat by Pulse 93 91 92 Oximetry 12/26/20 12/26/20 12/26/20 12:51 13:00 13:10 Temperature Pulse Rate 88 90 90 Pulse Rate [ Right Throughout] Respiratory 15 16 16 Rate Respiratory Rate [Right Throughout] Blood Pressure 139/78 139/78 O2 Sat by Pulse 93 90 92 Oximetry 12/26/20 12/26/20 12/26/20 13:21 13:31 13:41 Temperature Pulse Rate 94 H 91 H 92 H Pulse Rate [ Right Throughout] Respiratory 12 15 16 Rate Respiratory Rate [Right Throughout] Blood Pressure O2 Sat by Pulse 94 93 90 Oximetry 12/26/20 12/26/20 12/26/20 13:51 14:01 14:11 Temperature Pulse Rate 96 H 93 H 96 H Pulse Rate [ Right Throughout] Respiratory Rate Respiratory Rate [Right Throughout] Blood Pressure O2 Sat by Pulse 93 95 91 Oximetry 12/26/20 14:21 Temperature Pulse Rate 95 H Pulse Rate [ Right Throughout] Respiratory Rate Respiratory Rate [Right Throughout] Blood Pressure 162/98 O2 Sat by Pulse 93 Oximetry - General Appearance General appearance: well-developed, well-nourished EENT: ATNC Respiratory: Present: Clear to Ascultation Cardiology: regular, S1S2 Gastrointestinal: normal, no tenderness, no distended Integumentary: no rash, warm and dry Neurologic: no focal deficit, alert and oriented x3 Musculoskeletal: other (no edema) Psychiatric: cooperative - Lab 12/25/20 04:44 12/26/20 05:23 Most recent lab results ABG pH 7.279 (7.320-7.450) L 12/26/20 03:58 ABG pCO2 62.4 mm Hg 12/24/20 18:05 ABG pO2 257.7 mm Hg (80.0-90.0) H 12/24/20 18:05 ABG HCO3 28.3 mmol/L (20.0-26.0) H 12/24/20 18:05 ABG O2 Saturation 99.2 (0-100) 12/26/20 03:58 Calcium 8.1 mg/dL (8.4-10.2) L 12/26/20 05:23 Urine Creatinine 263.9 mg/dL (0.1-20.0) H 12/25/20 10:48 Urine Sodium 32 mmol/L 12/25/20 10:48 Medications & Allergies - Medications Allergies/Adverse Reactions: Allergies Penicillins Allergy (Verified 07/31/17 06:59) Angioedema Home Medications: Home Medications Medication Instructions Recorded Confirmed Last Taken Type ALBUTEROL NEB's [Proventil 0.083% 2.5 mg IH Q3HR PRN 30 Days nebu 08/03/17 12/25/20 Unknown Rx NEBS] Albuterol Mdi (or & Nicu Only) 1 puff IH PRN 30 Days inha 08/03/17 12/25/20 Unknown Rx [ProAir HFA Inhaler] Budesonide [Pulmicort Respules] 0.5 mg IH Q12HRT 30 Days nebu 08/03/17 12/25/20 Unknown Rx Prednisone [predniSONE 10 mg 10 mg PO .TAPER #1 tab.ds.pk 08/03/17 12/25/20 Unknown Rx (6-Day Pack, 21 Tabs)] guaiFENesin [Robitussin] 200 mg PO Q4H PRN 15 Days 08/03/17 12/25/20 Unknown Rx oral.liqd levoFLOXacin [Levaquin] 750 mg PO QDAY #5 tablet 08/03/17 12/25/20 Unknown Rx oxyCODONE /ACETAMINOPHEN [Percocet 1 tab PO Q4H PRN #7 tablet 08/03/17 12/25/20 Unknown Rx 5/325 mg] Active Medications: Generic Name Dose Route Start Last Admin Trade Name Freq PRN Reason Stop Dose Admin Acetaminophen 650 mg 12/24/20 22:37 Acetaminophen 325 Mg Tab PO Q4H PRN Pain MILD(1-3)/Fever >100.5/SAMPSON Lipase/Protease/Amylase 1 each 12/24/20 23:08 Lipase 10,500/Protease 25,000/Amylase 43,750 (Units) Dr Hobson FEEDTUBE PRN PRN For Clogged Feeding Tube Budesonide 0.5 mg 12/24/20 22:45 12/25/20 19:22 Budesonide 0.5 Mg/2 Ml Nebu IH 0.5 mg Q12HRT CHINTAN Administration Diphenhydramine HCl 50 mg 12/24/20 23:45 12/26/20 11:55 Diphenhydramine 50 Mg/Ml Vial IV 50 mg Q6H CHINTAN Administration Famotidine 20 mg 12/25/20 10:00 12/26/20 09:27 Famotidine 20 Mg/2 Ml Inj IV 20 mg BID CHINTAN Administration Heparin Sodium (Porcine) 5,000 unit 12/24/20 23:15 12/26/20 09:26 Heparin 5,000 Unit/1 Ml Vial SUB-Q 5,000 unit Q12HR CHINTAN Administration Hydromorphone HCl 0.5 mg 12/24/20 22:37 Hydromorphone 1 Mg/1 Ml Inj IV Q3H PRN Pain , Severe (7-10) Hydrophilic Ointment 1 applic 12/24/20 16:39 Lip Therapy Vaseline TP Q2HR PRN Dry Lips Sodium Chloride 1,000 mls @ 100 mls/hr 12/25/20 07:45 12/26/20 12:32 Nacl 0.9% 1000 Ml IV 100 mls/hr DIRECT CHINTAN Administration Insulin Human Regular 0 units 12/25/20 02:00 12/26/20 11:53 Insulin Regular, Human 100 Units/1 Ml SUB-Q 1 units Q4HR CHINTAN Administration Protocol Lorazepam 1 mg 12/25/20 04:09 Lorazepam 2 Mg/Ml Vial IV Q2H PRN Seizures Methylprednisolone Sodium Succinate 125 mg 12/24/20 23:00 12/26/20 14:07 Methylprednisolone Sod Succinate 125 Mg/2 Ml Inj IV 125 mg Q8HR CHINTAN Administration Metoclopramide HCl 10 mg 12/24/20 22:37 Metoclopramide 10 Mg/2 Ml Inj IV Q6H PRN Nausea And Vomiting Multi-Ingred Cream/Lotion/Oil/Oint 1 applic 12/24/20 16:39 Mineral Oil/Petrolatum, White Ophth Oint 3.5 Gm OU Q4HR PRN Dry Eye(s) Ondansetron HCl 4 mg 12/24/20 22:37 Ondansetron 4 Mg/2 Ml Inj IV Q3H PRN Nausea And Vomiting Simple Syrup 15 ml 12/24/20 23:08 Simple Syrup 15 Ml FEEDTUBE PRN PRN Hypoglycemia Simple Syrup 30 ml 12/24/20 23:08 Simple Syrup 15 Ml FEEDTUBE PRN PRN Hypoglycemia Sodium Bicarbonate 325 mg 12/24/20 23:08 Sodium Bicarbonate 325 Mg Tab FEEDTUBE PRN PRN For Clogged Feeding Tube Sodium Chloride 10 ml 12/25/20 10:00 12/26/20 09:27 Sodium Chloride 0.9% 10 Ml Flush Syringe IV 10 ml BID CHINTAN Administration Sodium Chloride 10 ml 12/24/20 22:37 Sodium Chloride 0.9% 10 Ml Flush Syringe IV PRN PRN LINE FLUSH
[2020-12-26] MEDS: ALBUTEROL 2.5 MG/3 ML NEBU IH PRN (16:23)
--- NOTE | 2020-12-26 21:02 | Progress Note ---
Assessment and Plan Critical care statement The high probability OF a clinically significant sudden or life-threatening deterioration of the cardiorespiratory system and endocrine system required my full and direct attention, intervention and postoperative management. The aggregate critical care time was 32 minutes. The time is in addition to time spent performing reported procedures but includes the followin: Data review and interpretation 2: Patient assessment and monitoring of vital signs 3: Documentation 4:: Medication orders and management - Patient Problems (1) Acute respiratory failure with hypoxia Current Visit: Yes Status: Acute Plan to address problem: Patient is extubated IV Pepcid IV Benadryl initiated IV antibiotics discontinued (2) Hyperkalemia Current Visit: Yes Status: Acute Plan to address problem: Hyperkalemia resolved (3) Acute kidney injury Current Visit: Yes Status: Acute Plan to address problem: Possible ATN Gentle hydration and review of the possible volume overload Creatinine normalized (4) Bilateral pneumonia Current Visit: Yes Status: Acute Plan to address problem: Stop IV antibiotics More in favor of volume overload Check BNP Varitype Operator follow-up appreciated (5) Anaphylactic reaction Current Visit: Yes Status: Acute Qualifiers: Encounter type: initial encounter Qualified Code(s): T78.2XXA - Anaphylactic shock, unspecified, initial encounter Plan to address problem: Patient treated for anaphylaxis and started on IV Solu-Medrol IV Pepcid and IV Benadryl Patient has a shrimp allergy (6) COPD (chronic obstructive pulmonary disease) Current Visit: Yes Status: Chronic Qualifiers: Emphysema type: unspecified Plan to address problem: Duo nebs [id number] and as needed (7) DVT prophylaxis Current Visit: Yes Status: Acute Plan to address problem: On heparin and GI prophylaxis Subjective Date of service: 12/26/20 Principal diagnosis: Anaphylactic reaction, hyperkalemia, acute renal failure Interval history: 55-year-old male comes in for an acute onset of shortness of breath and swelling of the lips and tongue. Patient stated he was having time for instantly began to have difficulty breathing and swelling of the tongue and lips. Patient has history of severe allergic reactions in addition to asthma and COPD. Patient states he cannot read. Patient states that he is feeling as if he is going to . Patient patient was immediately intubated in the emergency room upon arrival to prevent severe hypoxia and anoxic encephalopathy. Patient is probably allergic to shrimp. No fever or chills Day #2 12/25/2020 Patient is on vent Patient has high potassium and increased creatinine levels Nephrology consult requested Hyperkalemia was treated Day #3 12/26/2020 Patient extubated today Patient doing well after extubation Creatinine normalized Objective - Exam Narrative Exam: Patient is extubated - Constitutional Vitals: Vital Signs - 12hr 12/26/20 12/26/20 12/26/20 09:00 09:11 09:21 Temperature Pulse Rate 90 89 98 H Pulse Rate [ Right Throughout] Respiratory 29 H 26 H 30 H Rate Respiratory Rate [Right Throughout] Blood Pressure 132/74 132/74 165/90 O2 Sat by Pulse 94 96 93 Oximetry 12/26/20 12/26/20 12/26/20 09:30 09:41 09:51 Temperature Pulse Rate 89 85 82 Pulse Rate [ Right Throughout] Respiratory 30 H 30 H 30 H Rate Respiratory Rate [Right Throughout] Blood Pressure 112/70 112/70 109/66 O2 Sat by Pulse 91 93 93 Oximetry 12/26/20 12/26/20 12/26/20 10:00 10:11 10:21 Temperature Pulse Rate 79 79 77 Pulse Rate [ Right Throughout] Respiratory 30 H 30 H 30 H Rate Respiratory Rate [Right Throughout] Blood Pressure 109/68 109/68 110/73 O2 Sat by Pulse 94 94 94 Oximetry 12/26/20 12/26/20 12/26/20 10:30 10:41 10:51 Temperature Pulse Rate 80 85 103 H Pulse Rate [ Right Throughout] Respiratory 30 H 29 H 16 Rate Respiratory Rate [Right Throughout] Blood Pressure 111/70 110/73 123/75 O2 Sat by Pulse 94 95 97 Oximetry 12/26/20 12/26/20 12/26/20 11:01 11:11 11:21 Temperature Pulse Rate 79 106 H 105 H Pulse Rate [ Right Throughout] Respiratory 29 H 14 13 Rate Respiratory Rate [Right Throughout] Blood Pressure 150/94 150/94 156/94 O2 Sat by Pulse 90 96 94 Oximetry 12/26/20 12/26/20 12/26/20 11:31 11:41 11:51 Temperature Pulse Rate 99 H 95 H Pulse Rate [ Right Throughout] Respiratory 11 L 16 15 Rate Respiratory Rate [Right Throughout] Blood Pressure 139/78 139/78 139/78 O2 Sat by Pulse 95 95 95 Oximetry 12/26/20 12/26/20 12/26/20 12:00 12:01 12:11 Temperature Pulse Rate 88 103 H 97 H Pulse Rate [ Right Throughout] Respiratory 14 13 Rate Respiratory Rate [Right Throughout] Blood Pressure 139/78 139/78 O2 Sat by Pulse 98 96 96 Oximetry 12/26/20 12/26/20 12/26/20 12:21 12:31 12:41 Temperature Pulse Rate 107 H 98 H 94 H Pulse Rate [ Right Throughout] Respiratory 19 19 12 Rate Respiratory Rate [Right Throughout] Blood Pressure 139/78 139/78 139/78 O2 Sat by Pulse 93 91 92 Oximetry 12/26/20 12/26/20 12/26/20 12:51 13:00 13:10 Temperature Pulse Rate 88 90 90 Pulse Rate [ Right Throughout] Respiratory 15 16 16 Rate Respiratory Rate [Right Throughout] Blood Pressure 139/78 139/78 O2 Sat by Pulse 93 90 92 Oximetry 12/26/20 12/26/20 12/26/20 13:21 13:31 13:41 Temperature Pulse Rate 94 H 91 H 92 H Pulse Rate [ Right Throughout] Respiratory 12 15 16 Rate Respiratory Rate [Right Throughout] Blood Pressure O2 Sat by Pulse 94 93 90 Oximetry 12/26/20 12/26/20 12/26/20 13:51 14:01 14:11 Temperature Pulse Rate 96 H 93 H 96 H Pulse Rate [ Right Throughout] Respiratory Rate Respiratory Rate [Right Throughout] Blood Pressure O2 Sat by Pulse 93 95 91 Oximetry 12/26/20 12/26/20 12/26/20 14:21 14:31 14:41 Temperature Pulse Rate 95 H 96 H 98 H Pulse Rate [ Right Throughout] Respiratory Rate Respiratory Rate [Right Throughout] Blood Pressure 162/98 169/106 169/106 O2 Sat by Pulse 93 93 92 Oximetry 12/26/20 12/26/20 12/26/20 14:51 15:00 15:11 Temperature Pulse Rate 102 H Pulse Rate [ Right Throughout] Respiratory Rate Respiratory Rate [Right Throughout] Blood Pressure 162/105 154/98 154/98 O2 Sat by Pulse 92 92 Oximetry 12/26/20 12/26/20 12/26/20 15:21 15:33 15:41 Temperature Pulse Rate 105 H Pulse Rate [ Right Throughout] Respiratory 18 Rate Respiratory Rate [Right Throughout] Blood Pressure 154/98 154/98 154/98 O2 Sat by Pulse 92 76 L 89 Oximetry 12/26/20 12/26/20 12/26/20 15:50 15:51 16:00 Temperature Pulse Rate 97 H 94 H Pulse Rate [ Right Throughout] Respiratory 12 15 Rate Respiratory Rate [Right Throughout] Blood Pressure 154/88 150/89 O2 Sat by Pulse 96 96 94 Oximetry 12/26/20 12/26/20 12/26/20 16:11 16:21 16:23 Temperature Pulse Rate 93 H 99 H Pulse Rate [ 96 H Right Throughout] Respiratory 14 15 Rate Respiratory 16 Rate [Right Throughout] Blood Pressure 150/89 157/92 O2 Sat by Pulse 94 94 Oximetry 12/26/20 12/26/20 12/26/20 16:30 16:41 16:51 Temperature Pulse Rate 97 H 102 H Pulse Rate [ Right Throughout] Respiratory 17 21 Rate Respiratory Rate [Right Throughout] Blood Pressure 153/96 153/96 153/96 O2 Sat by Pulse 94 88 91 Oximetry 12/26/20 12/26/20 12/26/20 17:00 17:11 17:21 Temperature Pulse Rate Pulse Rate [ Right Throughout] Respiratory Rate Respiratory Rate [Right Throughout] Blood Pressure 160/92 160/92 162/88 O2 Sat by Pulse 89 89 80 L Oximetry 12/26/20 12/26/20 12/26/20 17:30 17:40 17:51 Temperature Pulse Rate 110 H Pulse Rate [ Right Throughout] Respiratory 22 Rate Respiratory Rate [Right Throughout] Blood Pressure 143/87 143/87 179/107 O2 Sat by Pulse 91 88 81 L Oximetry 12/26/20 12/26/20 12/26/20 18:01 18:11 19:57 Temperature 98.6 F Pulse Rate 114 H 119 H Pulse Rate [ Right Throughout] Respiratory 17 33 H Rate Respiratory Rate [Right Throughout] Blood Pressure 143/87 143/87 O2 Sat by Pulse 90 82 L Oximetry 12/26/20 12/26/20 20:00 20:09 Temperature Pulse Rate 109 H Pulse Rate [ Right Throughout] Respiratory Rate Respiratory Rate [Right Throughout] Blood Pressure O2 Sat by Pulse 92 Oximetry General appearance: Present: no acute distress, well-nourished - EENT Eyes: PERRL, EOM intact ENT: hearing intact, clear oral mucosa Ears: bilateral: normal - Neck Neck: supple, normal ROM - Respiratory Respiratory effort: normal Respiratory: bilateral: CTA - Breasts Breasts: normal - Cardiovascular Heart rate: 78 Rhythm: regular Heart Sounds: Present: S1 & S2. Absent: gallop, rub Extremities: pulses intact, No edema, normal color, Full ROM - Gastrointestinal General gastrointestinal: Present: soft, non-tender, non-distended, normal bowel sounds - Genitourinary Male genitourinary: normal - Integumentary Integumentary: clear, warm, dry - Musculoskeletal Musculoskeletal: 1, strength equal bilaterally - Neurologic Neurologic: moves all extremities - Psychiatric Psychiatric: memory intact, appropriate mood/affect, intact judgment & insight - Allied health notes Allied health notes reviewed: nursing - Labs CBC & Chem 7: 12/25/20 04:44 12/26/20 05:23 Labs: Abnormal lab results 12/25/20 12/26/20 12/26/20 Range/Units 23:17 02:13 03:58 ABG pH 7.279 L (7.320-7.450) POC ABG pCO2 60.9 H (32.0-48.0) mmHg POC ABG pO2 148.4 H (83-108) mmHg ABG Oxyhemoglobin 98.1 H (94-98) ABG Potassium 4.9 H (3.40-4.50) mmol/L ABG Glucose 174 H (65-95) mg/dL BUN (9-20) mg/dL Glucose (75-100) mg/dL POC Glucose 188 H 213 H (70-105) mg/dL Calcium (8.4-10.2) mg/dL Arterial Blood Glucose 174 H (65-95) mg/dL 12/26/20 12/26/20 12/26/20 Range/Units 05:17 05:23 11:41 ABG pH (7.320-7.450) POC ABG pCO2 (32.0-48.0) mmHg POC ABG pO2 (83-108) mmHg ABG Oxyhemoglobin (94-98) ABG Potassium (3.40-4.50) mmol/L ABG Glucose (65-95) mg/dL BUN 24 H (9-20) mg/dL Glucose 184 H (75-100) mg/dL POC Glucose 168 H 157 H (70-105) mg/dL Calcium 8.1 L (8.4-10.2) mg/dL Arterial Blood Glucose (65-95) mg/dL 12/26/20 Range/Units 15:57 ABG pH (7.320-7.450) POC ABG pCO2 (32.0-48.0) mmHg POC ABG pO2 (83-108) mmHg ABG Oxyhemoglobin (94-98) ABG Potassium (3.40-4.50) mmol/L ABG Glucose (65-95) mg/dL BUN (9-20) mg/dL Glucose (75-100) mg/dL POC Glucose 157 H (70-105) mg/dL Calcium (8.4-10.2) mg/dL Arterial Blood Glucose (65-95) mg/dL HEART Score - HEART Score Age: 45-65 Risk factors: No known risk factors - Critical Actions Critical Actions: 0-3 pts:0.9-1.7%risk of adverse cardiac event.Candidate for discharge
[2020-12-26] MEDS: ARFORMOTEROL 15 MCG/2 ML NEBU IH SCH (21:17)
[2020-12-27] MEDS: diphenhydrAMINE 50 MG/ML VIAL IV SCH ×2 (03:47→05:09)
[2020-12-27] MEDS: methylPREDNISolone Sod Succinate 125 MG/2 ML INJ IV SCH (05:09)
[2020-12-27 06:26] LABS: BUN/Creatinine Ratio 23; Blood Urea Nitrogen 18 mg/dL (9-20); Calcium 8.3 mg/dL (8.4-10.2); Hemolysis Index 17
[2020-12-27] MEDS: INSULIN REGULAR, HUMAN 100 UNITS/1 ML SUB-Q SCH ×4 (08:34→22:27)
[2020-12-27] MEDS: BUDESONIDE 0.5 MG/2 ML NEBU IH SCH ×2 (09:49→20:47)
[2020-12-27] MEDS: ARFORMOTEROL 15 MCG/2 ML NEBU IH SCH ×2 (09:49→20:47)
--- NOTE | 2020-12-27 09:50 | Progress Note ---
Assessment and Plan Impression: * Acute kidney injury - resolved --Renal ultrasound: Right 10.3, Left 12.4 (Dec 25) * Hyperkalemia * Acute respiratory failure secondary to anaphylactic reaction * Anaphylaxis * Hematuria * Proteinuria Plan: * Renal function improved; SHAKEEL resolved * BP stable * Urine output >2L/24 hours * Hyperkalemia resolved w/ medical management * Reviewed prior urine studies, renal ultrasound, no change to current management * Encourage po hydration * Await pending serologies * Dose medications for renal function * Avoid potential nephrotoxins Thank you for this consult, will follow peripherally given improvement in renal function, stable electrolytes Subjective Date of service: 12/27/20 Principal diagnosis: Anaphylactic reaction, hyperkalemia, acute renal failure Interval history: On Bipap this AM, alert and awake, no acute issues noted. Objective - Vital Signs Vital signs: Vital Signs - 12hr 12/26/20 12/26/20 12/26/20 22:00 22:30 23:00 Temperature Pulse Rate 105 H 88 93 H Respiratory 18 18 16 Rate Blood Pressure 148/94 149/76 150/90 O2 Sat by Pulse 94 90 90 Oximetry 12/26/20 12/27/20 12/27/20 23:30 00:00 00:30 Temperature 98.1 F Pulse Rate 80 83 Respiratory 17 16 Rate Blood Pressure 162/80 161/86 177/98 O2 Sat by Pulse 90 91 87 Oximetry 12/27/20 12/27/20 12/27/20 01:00 01:30 02:00 Temperature Pulse Rate 91 H Respiratory 23 Rate Blood Pressure 136/77 154/82 131/76 O2 Sat by Pulse 94 89 90 Oximetry 12/27/20 12/27/20 12/27/20 02:30 03:00 03:30 Temperature Pulse Rate 77 Respiratory 21 Rate Blood Pressure 131/76 130/67 142/76 O2 Sat by Pulse 93 90 91 Oximetry 12/27/20 12/27/20 12/27/20 04:00 04:30 05:00 Temperature 99.0 F Pulse Rate 81 85 86 Respiratory 19 19 17 Rate Blood Pressure 158/88 140/72 143/74 O2 Sat by Pulse 91 93 Oximetry 12/27/20 12/27/20 12/27/20 05:30 05:40 06:01 Temperature Pulse Rate 95 H 80 Respiratory 17 21 19 Rate Blood Pressure 152/78 152/78 146/80 O2 Sat by Pulse 88 93 90 Oximetry 12/27/20 12/27/20 12/27/20 06:30 07:00 07:30 Temperature Pulse Rate 63 Respiratory 18 Rate Blood Pressure 151/84 140/83 140/89 O2 Sat by Pulse 94 95 96 Oximetry 12/27/20 12/27/20 12/27/20 08:00 08:30 09:37 Temperature Pulse Rate 65 62 Respiratory 20 18 Rate Blood Pressure 149/83 134/83 O2 Sat by Pulse 94 96 94 Oximetry - Lab 12/25/20 04:44 12/27/20 04:50 Most recent lab results ABG pH 7.279 (7.320-7.450) L 12/26/20 03:58 ABG pCO2 62.4 mm Hg 12/24/20 18:05 ABG pO2 257.7 mm Hg (80.0-90.0) H 12/24/20 18:05 ABG HCO3 28.3 mmol/L (20.0-26.0) H 12/24/20 18:05 ABG O2 Saturation 99.2 (0-100) 12/26/20 03:58 Calcium 8.3 mg/dL (8.4-10.2) L 12/27/20 04:50 Urine Creatinine 263.9 mg/dL (0.1-20.0) H 12/25/20 10:48 Urine Sodium 32 mmol/L 12/25/20 10:48 Medications & Allergies - Medications Allergies/Adverse Reactions: Allergies Penicillins Allergy (Verified 07/31/17 06:59) Angioedema Home Medications: Home Medications Medication Instructions Recorded Confirmed Last Taken Type ALBUTEROL NEB's [Proventil 0.083% 2.5 mg IH Q3HR PRN 30 Days nebu 08/03/17 12/25/20 Unknown Rx NEBS] Albuterol Mdi (or & Nicu Only) 1 puff IH PRN 30 Days inha 08/03/17 12/25/20 Unknown Rx [ProAir HFA Inhaler] Budesonide [Pulmicort Respules] 0.5 mg IH Q12HRT 30 Days nebu 08/03/17 12/25/20 Unknown Rx Prednisone [predniSONE 10 mg 10 mg PO .TAPER #1 tab.ds.pk 08/03/17 12/25/20 U nknown Rx (6-Day Pack, 21 Tabs)] guaiFENesin [Robitussin] 200 mg PO Q4H PRN 15 Days 08/03/17 12/25/20 Unknown Rx oral.liqd levoFLOXacin [Levaquin] 750 mg PO QDAY #5 tablet 08/03/17 12/25/20 Unknown Rx oxyCODONE /ACETAMINOPHEN [Percocet 1 tab PO Q4H PRN #7 tablet 08/03/17 12/25/20 Unknown Rx 5/325 mg] Active Medications: Generic Name Dose Route Start Last Admin Trade Name Freq PRN Reason Stop Dose Admin Acetaminophen 650 mg 12/24/20 22:37 Acetaminophen 325 Mg Tab PO Q4H PRN Pain MILD(1-3)/Fever >100.5/SAMPSON Albuterol 2.5 mg 12/26/20 15:52 12/26/20 16:23 Albuterol 2.5 Mg/3 Ml Nebu IH 2.5 mg Q4H PRN Administration Shortness Of Breath Lipase/Protease/Amylase 1 each 12/24/20 23:08 Lipase 10,500/Protease 25,000/Amylase 43,750 (Units) Dr Joce SEPULVEDA PRN PRN For Clogged Feeding Tube Arformoterol Tartrate 15 mcg 12/26/20 20:00 12/26/20 21:17 Arformoterol 15 Mcg/2 Ml Nebu IH 15 mcg Q12HRT CHINTAN Administration Budesonide 0.5 mg 12/26/20 20:00 12/26/20 21:16 Budesonide 0.5 Mg/2 Ml Nebu IH 0.5 mg Q12HRT CHINTAN Administration Diphenhydramine HCl 50 mg 12/24/20 23:45 12/27/20 05:09 Diphenhydramine 50 Mg/Ml Vial IV 50 mg Q6H CHINTAN Administration Famotidine 20 mg 12/25/20 10:00 12/26/20 21:32 Famotidine 20 Mg/2 Ml Inj IV 20 mg BID CHINTAN Administration Heparin Sodium (Porcine) 5,000 unit 12/24/20 23:15 12/26/20 21:32 Heparin 5,000 Unit/1 Ml Vial SUB-Q 5,000 unit Q12HR CHINTAN Administration Hydromorphone HCl 0.5 mg 12/24/20 22:37 Hydromorphone 1 Mg/1 Ml Inj IV Q3H PRN Pain , Severe (7-10) Hydrophilic Ointment 1 applic 12/24/20 16:39 Lip Therapy Vaseline TP Q2HR PRN Dry Lips Sodium Chloride 1,000 mls @ 100 mls/hr 12/25/20 07:45 12/26/20 12:32 Nacl 0.9% 1000 Ml IV 100 mls/hr DIRECT CHINTAN Administration Insulin Human Regular 0 units 12/26/20 22:00 12/27/20 08:34 Insulin Regular, Human 100 Units/1 Ml SUB-Q Not Given ACHS CHINTAN Protocol Lorazepam 1 mg 12/25/20 04:09 Lorazepam 2 Mg/Ml Vial IV Q2H PRN Seizures Methylprednisolone Sodium Succinate 125 mg 12/24/20 23:00 12/27/20 05:09 Methylprednisolone Sod Succinate 125 Mg/2 Ml Inj IV 125 mg Q8HR CHINTAN Administration Metoclopramide HCl 10 mg 12/24/20 22:37 Metoclopramide 10 Mg/2 Ml Inj IV Q6H PRN Nausea And Vomiting Multi-Ingred Cream/Lotion/Oil/Oint 1 applic 12/24/20 16:39 Mineral Oil/Petrolatum, White Ophth Oint 3.5 Gm OU Q4HR PRN Dry Eye(s) Ondansetron HCl 4 mg 12/24/20 22:37 Ondansetron 4 Mg/2 Ml Inj IV Q3H PRN Nausea And Vomiting Simple Syrup 15 ml 12/24/20 23:08 Simple Syrup 15 Ml FEEDTUBE PRN PRN Hypoglycemia Simple Syrup 30 ml 12/24/20 23:08 Simple Syrup 15 Ml FEEDTUBE PRN PRN Hypoglycemia Sodium Bicarbonate 325 mg 12/24/20 23:08 Sodium Bicarbonate 325 Mg Tab FEEDTUBE PRN PRN For Clogged Feeding Tube Sodium Chloride 10 ml 12/25/20 10:00 12/26/20 21:32 Sodium Chloride 0.9% 10 Ml Flush Syringe IV 10 ml BID CHINTAN Administration Sodium Chloride 10 ml 12/24/20 22:37 Sodium Chloride 0.9% 10 Ml Flush Syringe IV PRN PRN LINE FLUSH
[2020-12-27] MEDS ORDERED: FUROSEMIDE 40 MG/4 ML INJ IV ONE (11:00)
[2020-12-27] MEDS: HEPARIN 5,000 UNIT/1 ML VIAL SUB-Q SCH ×2 (11:34→21:34)
--- NOTE | 2020-12-27 13:07 | Progress Note ---
Assessment and Plan 55 y/o male with acute respiratory failure thought secondary to allergic reaction with angioedema 12/27/20: Gave Lasix IV x1 today. Wean off Bipap but continue PRN orders. Stop IVF. Patient is eating. sTable for transfer to floor. Needs labs in the am. 12/26/20: Extubate today. May need bipap PRN. Continue steroids, benadryl and pepcid through tomorrow. Renal function is improving. K better despite lack of BM. Was given insulin therapy. Will assess swallowing function post extubation. Follow up bilateral ultrasound of kidneys. BNP was normal 1. Agree with IV steroids at current dosing 2. Agree with benadryl at q6 hour dosing 3. Agree with BID Pepcid 4. Will stop IV abx therapy all together 5. Ordered bilateral renal ultrasound as well as urine lytes. Continue fisher catheter for now. Would go ahead and order renal consult in case they feel patient needs HD. 6. Ordered BNP given CXR findings 7. Will repeat Chemistry this afternoon at 1400, BNP can be drawn then. CCT 31 minutes. Subjective Date of service: 12/27/20 Principal diagnosis: Anaphylactic reaction, hyperkalemia, acute renal failure Interval history: Hypoxemia overnight. Required bipap and fluids were still going. Renal function is back to normal but K is still high normal. Gave lasix this am. Awake and alert on aerosol mask. No distress noted. Objective Vital Signs - 12hr 12/27/20 12/27/20 12/27/20 01:30 02:00 02:30 Temperature Pulse Rate 91 H Pulse Rate [ Right Throughout] Respiratory 23 Rate Respiratory Rate [Right Throughout] Blood Pressure 154/82 131/76 131/76 O2 Sat by Pulse 89 90 93 Oximetry 12/27/20 12/27/20 12/27/20 03:00 03:30 04:00 Temperature 99.0 F Pulse Rate 77 81 Pulse Rate [ Right Throughout] Respiratory 21 19 Rate Respiratory Rate [Right Throughout] Blood Pressure 130/67 142/76 158/88 O2 Sat by Pulse 90 91 91 Oximetry 12/27/20 12/27/20 12/27/20 04:30 05:00 05:30 Temperature Pulse Rate 85 86 95 H Pulse Rate [ Right Throughout] Respiratory 19 17 17 Rate Respiratory Rate [Right Throughout] Blood Pressure 140/72 143/74 152/78 O2 Sat by Pulse 93 88 Oximetry 03/29/21 03/29/21 03/29/21 05:40 06:01 06:30 Temperature Pulse Rate 80 Pulse Rate [ Right Throughout] Respiratory 21 19 Rate Respiratory Rate [Right Throughout] Blood Pressure 152/78 146/80 151/84 O2 Sat by Pulse 93 90 94 Oximetry 12/27/20 12/27/20 12/27/20 07:00 07:30 08:00 Temperature Pulse Rate 63 65 Pulse Rate [ Right Throughout] Respiratory 18 20 Rate Respiratory Rate [Right Throughout] Blood Pressure 140/83 140/89 149/83 O2 Sat by Pulse 95 96 94 Oximetry 12/27/20 12/27/20 12/27/20 08:30 09:00 09:30 Temperature Pulse Rate 62 64 58 L Pulse Rate [ Right Throughout] Respiratory 18 15 16 Rate Respiratory Rate [Right Throughout] Blood Pressure 134/83 154/88 150/88 O2 Sat by Pulse 96 96 98 Oximetry 12/27/20 12/27/20 12/27/20 09:37 09:52 10:00 Temperature Pulse Rate 82 Pulse Rate [ 85 Right Throughout] Respiratory 18 Rate Respiratory 21 Rate [Right Throughout] Blood Pressure 141/89 O2 Sat by Pulse 94 92 Oximetry 12/27/20 12/27/20 12/27/20 10:31 11:00 11:30 Temperature Pulse Rate 97 H 87 Pulse Rate [ Right Throughout] Respiratory 26 H 21 Rate Respiratory Rate [Right Throughout] Blood Pressure 147/82 126/84 155/86 O2 Sat by Pulse 84 95 91 Oximetry 12/27/20 12/27/20 12:00 12:30 Temperature Pulse Rate 84 Pulse Rate [ Right Throughout] Respiratory Rate Respiratory Rate [Right Throughout] Blood Pressure 155/86 143/99 O2 Sat by Pulse 90 94 Oximetry Constitutional: no acute distress, alert, other (obese) ENT: other (orally intubated) Neck: supple, other (large in circumference) Effort: normal Ascultation: Bilateral: diminished breath sounds Percussion: Bilateral: not dull Cardiovascular: regular rate and rhythm Gastrointestinal: other (distended, mildly firm) Extremities: no edema Neurologic: unable to assess CBC and BMP: 12/25/20 04:44 12/27/20 04:50 ABG, PT/INR, D-dimer: ABG ABG pH 7.279 (7.320-7.450) L 12/26/20 03:58 POC ABG pCO2 60.9 mmHg (32.0-48.0) H 12/26/20 03:58 ABG pCO2 62.4 mm Hg 12/24/20 18:05 POC ABG pO2 148.4 mmHg (83-108) H 12/26/20 03:58 ABG pO2 257.7 mm Hg (80.0-90.0) H 12/24/20 18:05 POC ABG HCO3 27.9 12/26/20 03:58 ABG O2 Saturation 99.2 (0-100) 12/26/20 03:58 Abnormal lab findings: Abnormal Labs 12/24/20 12/24/20 12/24/20 16:48 16:48 18:05 WBC RBC 5.05 H Hgb Hct Seg Neuts % (Manual) 30.0 L Lymphocytes % (Manual) 53.0 H Monocytes % (Manual) 8.0 H Eosinophils % (Manual) 7.0 H Basophils % (Manual) 2.0 H Seg Neutrophils # Man Lymphocytes # (Manual) ABG pH 7.275 L POC ABG pCO2 POC ABG pO2 ABG pO2 257.7 H ABG HCO3 28.3 H ABG O2 Saturation 99.4 H ABG Oxyhemoglobin ABG Potassium ABG Glucose Sodium Potassium 3.5 L BUN 8 L Creatinine Glucose 147 H POC Glucose Hemoglobin A1c Calcium Total Creatine Kinase CK-MB (CK-2) Arterial Blood Glucose Urine WBC (Auto) Urine Creatinine 12/24/20 12/25/20 12/25/20 23:16 04:44 04:44 WBC 15.3 H RBC 5.15 H Hgb 15.3 H Hct 45.9 H Seg Neuts % (Manual) 91.0 H Lymphocytes % (Manual) 4.0 L Monocytes % (Manual) Eosinophils % (Manual) Basophils % (Manual) Seg Neutrophils # Man 13.9 H Lymphocytes # (Manual) 0.6 L ABG pH POC ABG pCO2 POC ABG pO2 ABG pO2 ABG HCO3 ABG O2 Saturation ABG Oxyhemoglobin ABG Potassium ABG Glucose Sodium 136 L Potassium 7.4 H* D BUN Creatinine 2.4 H D Glucose 162 H POC Glucose 229 H Hemoglobin A1c Calcium Total Creatine Kinase CK-MB (CK-2) Arterial Blood Glucose Urine WBC (Auto) Urine Creatinine 12/25/20 12/25/20 12/25/20 04:44 06:19 06:32 WBC RBC Hgb Hct Seg Neuts % (Manual) Lymphocytes % (Manual) Monocytes % (Manual) Eosinophils % (Manual) Basophils % (Manual) Seg Neutrophils # Man Lymphocytes # (Manual) ABG pH POC ABG pCO2 POC ABG pO2 ABG pO2 ABG HCO3 ABG O2 Saturation ABG Oxyhemoglobin ABG Potassium ABG Glucose Sodium 135 L Potassium 6.9 H* BUN 21 H Creatinine 2.3 H Glucose 180 H POC Glucose 172 H Hemoglobin A1c 6.4 H Calcium Total Creatine Kinase CK-MB (CK-2) Arterial Blood Glucose Urine WBC (Auto) Urine Creatinine 12/25/20 12/25/20 12/25/20 06:34 07:47 09:55 WBC RBC Hgb Hct Seg Neuts % (Manual) Lymphocytes % (Manual) Monocytes % (Manual) Eosinophils % (Manual) Basophils % (Manual) Seg Neutrophils # Man Lymphocytes # (Manual) ABG pH POC ABG pCO2 POC ABG pO2 ABG pO2 ABG HCO3 ABG O2 Saturation ABG Oxyhemoglobin ABG Potassium ABG Glucose Sodium Potassium 5.6 H BUN 22 H Creatinine 1.9 H Glucose 158 H POC Glucose Hemoglobin A1c Calcium Total Creatine Kinase 569 H 569 H CK-MB (CK-2) 4.8 H 4.9 H Arterial Blood Glucose Urine WBC (Auto) Urine Creatinine 12/25/20 12/25/20 12/25/20 10:48 12:27 14:30 WBC RBC Hgb Hct Seg Neuts % (Manual) Lymphocytes % (Manual) Monocytes % (Manual) Eosinophils % (Manual) Basophils % (Manual) Seg Neutrophils # Man Lymphocytes # (Manual) ABG pH POC ABG pCO2 POC ABG pO2 ABG pO2 ABG HCO3 ABG O2 Saturation ABG Oxyhemoglobin ABG Potassium ABG Glucose Sodium Potassium 6.3 H* BUN 25 H Creatinine 1.7 H Glucose 152 H POC Glucose 226 H Hemoglobin A1c Calcium Total Creatine Kinase CK-MB (CK-2) Arterial Blood Glucose Urine WBC (Auto) Urine Creatinine 263.9 H 12/25/20 12/25/20 12/25/20 15:33 17:37 17:53 WBC RBC Hgb Hct Seg Neuts % (Manual) Lymphocytes % (Manual) Monocytes % (Manual) Eosinophils % (Manual) Basophils % (Manual) Seg Neutrophils # Man Lymphocytes # (Manual) ABG pH 7.177 L POC ABG pCO2 73.1 H POC ABG pO2 ABG pO2 ABG HCO3 ABG O2 Saturation ABG Oxyhemoglobin ABG Potassium 5.8 H ABG Glucose 152 H Sodium Potassium BUN Creatinine Glucose POC Glucose 146 H Hemoglobin A1c Calcium Total Creatine Kinase CK-MB (CK-2) Arterial Blood Glucose 152 H Urine WBC (Auto) 48.0 H Urine Creatinine 12/25/20 12/25/20 12/26/20 19:12 23:17 02:13 WBC RBC Hgb Hct Seg Neuts % (Manual) Lymphocytes % (Manual) Monocytes % (Manual) Eosinophils % (Manual) Basophils % (Manual) Seg Neutrophils # Man Lymphocytes # (Manual) ABG pH POC ABG pCO2 POC ABG pO2 ABG pO2 ABG HCO3 ABG O2 Saturation ABG Oxyhemoglobin ABG Potassium ABG Glucose Sodium Potassium 5.4 H BUN 26 H Creatinine 1.5 H Glucose 146 H POC Glucose 188 H 213 H Hemoglobin A1c Calcium 8.1 L Total Creatine Kinase 829 H CK-MB (CK-2) Arterial Blood Glucose Urine WBC (Auto) Urine Creatinine 12/26/20 12/26/20 12/26/20 03:58 05:17 05:23 WBC RBC Hgb Hct Seg Neuts % (Manual) Lymphocytes % (Manual) Monocytes % (Manual) Eosinophils % (Manual) Basophils % (Manual) Seg Neutrophils # Man Lymphocytes # (Manual) ABG pH 7.279 L POC ABG pCO2 60.9 H POC ABG pO2 148.4 H ABG pO2 ABG HCO3 ABG O2 Saturation ABG Oxyhemoglobin 98.1 H ABG Potassium 4.9 H ABG Glucose 174 H Sodium Potassium BUN 24 H Creatinine Glucose 184 H POC Glucose 168 H Hemoglobin A1c Calcium 8.1 L Total Creatine Kinase CK-MB (CK-2) Arterial Blood Glucose 174 H Urine WBC (Auto) Urine Creatinine 12/26/20 12/26/20 12/26/20 11:41 15:57 21:44 WBC RBC Hgb Hct Seg Neuts % (Manual) Lymphocytes % (Manual) Monocytes % (Manual) Eosinophils % (Manual) Basophils % (Manual) Seg Neutrophils # Man Lymphocytes # (Manual) ABG pH POC ABG pCO2 POC ABG pO2 ABG pO2 ABG HCO3 ABG O2 Saturation ABG Oxyhemoglobin ABG Potassium ABG Glucose Sodium Potassium BUN Creatinine Glucose POC Glucose 157 H 157 H 176 H Hemoglobin A1c Calcium Total Creatine Kinase CK-MB (CK-2) Arterial Blood Glucose Urine WBC (Auto) Urine Creatinine 12/27/20 12/27/20 04:50 07:48 WBC RBC Hgb Hct Seg Neuts % (Manual) Lymphocytes % (Manual) Monocytes % (Manual) Eosinophils % (Manual) Basophils % (Manual) Seg Neutrophils # Man Lymphocytes # (Manual) ABG pH POC ABG pCO2 POC ABG pO2 ABG pO2 ABG HCO3 ABG O2 Saturation ABG Oxyhemoglobin ABG Potassium ABG Glucose Sodium Potassium BUN Creatinine Glucose 190 H POC Glucose 135 H Hemoglobin A1c Calcium 8.3 L Total Creatine Kinase CK-MB (CK-2) Arterial Blood Glucose Urine WBC (Auto) Urine Creatinine
--- NOTE | 2020-12-27 15:23 | Progress Note ---
Assessment and Plan Assessment and plan: Acute hypoxic respiratory failure -Extubated on 12/27 -BiPAP therapy -Wean as tolerated -Pulmonary hygiene Anaphylactic reaction -S/p steroid, Benadryl and Pepcid Acute kidney injury -12/25 BUN/creatinine 21/2.4 -S/p MIVF -Nephrology consulted, appreciate recommendations -Renal ultrasound pending Hyperglycemia -12/09 hemoglobin A1c 6.4 -SSI -CC diet COPD -Continue home pulmonary regimen Tobacco abuse -Nicotine cessation counseling DVT/GI prophylaxis: SCDs to BLE while in bed Dispo: Transfer to floor History Interval history: This is a 35-year-old male with arthritis, asthma, COPD, current tobacco abuse and mitral valve prolapse who presented to the emergency department on 12/24 with acute onset of shortness of breath and angioedema. Patient was immediately intubated in the emergency department upon arrival to prevent severe hypoxia and anoxic encephalopathy. CCM and nephrology were consulted. Patient was admitted to the hospital service for further further work-up and prevent deterioration. Acute hypoxic respiratory failure Anaphylactic reaction Acute kidney injury Hyperglycemia COPD Tobacco abuse 12/25/2020 Patient is on vent Patient has high potassium and increased creatinine levels Nephrology consult requested Hyperkalemia was treated Day #3 12/26/2020 Patient extubated today Patient doing well after extubation Creatinine normalized 12/27: The time of examination patient was on BiPAP therapy at 55% FiO2. Patient was able to be weaned off BiPAP and given Lasix by CCM and his IV fluids were stopped. Patient is currently on Vapotherm. Acute kidney injury and hyperkalemia. Patient has leukocytosis this morning however he has been on steroids. Patient is stable and will be transferred to the floor. Hospitalist Physical - Constitutional Vitals: Temp Pulse Resp BP Pulse Ox 99.0 F 76 14 143/71 94 12/27/20 04:00 12/27/20 14:30 12/27/20 14:30 12/27/20 14:30 12/27/20 14:57 General appearance: Present: no acute distress, well-nourished - EENT Eyes: Present: PERRL, EOM intact ENT: hearing intact, clear oral mucosa, dentition normal - Neck Neck: Present: normal ROM - Respiratory Respiratory effort: normal Respiratory: bilateral: CTA - Cardiovascular Rhythm: regular Heart Sounds: Present: S1 & S2. Absent: systolic murmur, diastolic murmur - Extremities Extremities: no ischemia, pulses intact, pulses symmetrical, No edema, normal temperature, normal color, Full ROM Peripheral Pulses: within normal limits - Abdominal General gastrointestinal: soft, non-tender, non-distended, normal bowel sounds - Integumentary Integumentary: Present: clear, warm, dry - Psychiatric Psychiatric: cooperative - Neurologic Neurologic: CNII-XII intact, no focal deficits, moves all extremities - Allied Health Allied health notes reviewed: nursing, PT, RT, social work HEART Score - HEART Score Age: 45-65 Risk factors: No known risk factors - Critical Actions Critical Actions: 0-3 pts:0.9-1.7%risk of adverse cardiac event.Candidate for discharge Results - Labs CBC & Chem 7: 12/25/20 04:44 12/27/20 04:50 Labs: Laboratory Last Values WBC 15.3 K/mm3 (4.5-11.0) H 12/25/20 04:44 RBC 5.15 M/mm3 (3.65-5.03) H 12/25/20 04:44 Hgb 15.3 gm/dl (11.8-15.2) H 12/25/20 04:44 Hct 45.9 % (35.5-45.6) H 12/25/20 04:44 MCV 89 fl (84-94) 12/25/20 04:44 MCH 30 pg (28-32) 12/25/20 04:44 MCHC 33 % (32-34) 12/25/20 04:44 RDW 14.3 % (13.2-15.2) 12/25/20 04:44 Plt Count 208 K/mm3 (140-440) 12/25/20 04:44 Add Manual Diff Complete 12/25/20 04:44 Total Counted 100 12/25/20 04:44 Seg Neutrophils % Marketing Trainee 12/25/20 04:44 Seg Neuts % (Manual) 91.0 % (40.0-70.0) H 12/25/20 04:44 Lymphocytes % (Manual) 4.0 % (13.4-35.0) L 12/25/20 04:44 Monocytes % (Manual) 4.0 % (0.0-7.3) 12/25/20 04:44 Eosinophils % (Manual) 7.0 % (0.0-4.3) H 12/24/20 16:48 Basophils % (Manual) 2.0 % (0.0-1.8) H 12/24/20 16:48 Metamyelocytes % 1.0 % 12/25/20 04:44 Nucleated RBC % Not Reportable 12/25/20 04:44 Seg Neutrophils # Man 13.9 K/mm3 (1.8-7.7) H 12/25/20 04:44 Band Neutrophils # 0.0 K/mm3 12/25/20 04:44 Lymphocytes # (Manual) 0.6 K/mm3 (1.2-5.4) L 12/25/20 04:44 Abs React Lymphs (Man) 0.0 K/mm3 12/25/20 04:44 Monocytes # (Manual) 0.6 K/mm3 (0.0-0.8) 12/25/20 04:44 Eosinophils # (Manual) 0.0 K/mm3 (0.0-0.4) 12/25/20 04:44 Basophils # (Manual) 0.0 K/mm3 (0.0-0.1) 12/25/20 04:44 Metamyelocytes # 0.2 K/mm3 12/25/20 04:44 Myelocytes # 0.0 K/mm3 12/25/20 04:44 Promyelocytes # 0.0 K/mm3 12/25/20 04:44 Blast Cells # 0.0 K/mm3 12/25/20 04:44 WBC Morphology Not Reportable 12/25/20 04:44 Hypersegmented Neuts Not Reportable 12/25/20 04:44 Hyposegmented Neuts Not Reportable 12/25/20 04:44 Hypogranular Neuts Not Reportable 12/25/20 04:44 Smudge Cells Not Reportable 12/25/20 04:44 Toxic Granulation Not Reportable 12/25/20 04:44 Toxic Vacuolation Not Reportable 12/25/20 04:44 Dohle Bodies Not Reportable 12/25/20 04:44 Pelger-Huet Anomaly Not Reportable 12/25/20 04:44 Yohan Rods Not Reportable 12/25/20 04:44 Platelet Estimate Consistent w auto 12/25/20 04:44 Clumped Platelets Not Reportable 12/25/20 04:44 Plt Clumps, EDTA Not Reportable 12/25/20 04:44 Large Platelets Not Reportable 12/25/20 04:44 Giant Platelets Not Reportable 12/25/20 04:44 Platelet Satelliting Not Reportable 12/25/20 04:44 Plt Morphology Comment Not Reportable 12/25/20 04:44 RBC Morphology Not Reportable 12/25/20 04:44 Dimorphic RBCs Not Reportable 12/25/20 04:44 Polychromasia Not Reportable 12/25/20 04:44 Hypochromasia Not Reportable 12/25/20 04:44 Poikilocytosis Not Reportable 12/25/20 04:44 Anisocytosis Not Reportable 12/25/20 04:44 Microcytosis Not Reportable 12/25/20 04:44 Macrocytosis Not Reportable 12/25/20 04:44 Spherocytes Not Reportable 12/25/20 04:44 Pappenheimer Bodies Not Reportable 12/25/20 04:44 Sickle Cells Not Reportable 12/25/20 04:44 Target Cells Not Reportable 12/25/20 04:44 Tear Drop Cells Not Reportable 12/25/20 04:44 Ovalocytes Not Reportable 12/25/20 04:44 Helmet Cells Not Reportable 12/25/20 04:44 [place] Bodies Not Reportable 12/25/20 04:44 [place] Rings Not Reportable 12/25/20 04:44 [place] Cells Not Reportable 12/25/20 04:44 Bite Cells Not Reportable 12/25/20 04:44 Crenated Cell Not Reportable 12/25/20 04:44 Elliptocytes Not Reportable 12/25/20 04:44 Acanthocytes (Spur) Not Reportable 12/25/20 04:44 Rouleaux Not Reportable 12/25/20 04:44 Hemoglobin C Crystals Not Reportable 12/25/20 04:44 Schistocytes Not Reportable 12/25/20 04:44 Malaria parasites Not Reportable 12/25/20 04:44 Tom Bodies Not Reportable 12/25/20 04:44 Hem Pathologist Commnt No 12/25/20 04:44 ABG pH 7.279 (7.320-7.450) L 12/26/20 03:58 POC ABG pCO2 60.9 mmHg (32.0-48.0) H 12/26/20 03:58 ABG pCO2 62.4 mm Hg 12/24/20 18:05 POC ABG pO2 148.4 mmHg (83-108) H 12/26/20 03:58 ABG pO2 257.7 mm Hg (80.0-90.0) H 12/24/20 18:05 POC ABG HCO3 27.9 12/26/20 03:58 ABG HCO3 28.3 mmol/L (20.0-26.0) H 12/24/20 18:05 ABG O2 Saturation 99.2 (0-100) 12/26/20 03:58 ABG O2 Content 20.3 (0.0-44) 12/24/20 18:05 POC ABG Base Excess -0.2 12/26/20 03:58 ABG Base Excess 0.0 mmol/L (-2.0-3.0) 12/24/20 18:05 ABG Hemoglobin 13.7 (12.0-17.5) 12/26/20 03:58 ABG Oxyhemoglobin 98.1 (94-98) H 12/26/20 03:58 ABG Carboxyhemoglobin 2.6 % (0.0-5.0) 12/24/20 18:05 ABG Methemoglobin 0.2 (0.0-1.5) 12/26/20 03:58 ABG Sodium 139.2 mmol/L (136.0-145.0) 12/26/20 03:58 ABG Potassium 4.9 mmol/L (3.40-4.50) H 12/26/20 03:58 ABG Chloride 104.0 mmol/L (98-107) 12/26/20 03:58 ABG Glucose 174 mg/dL (65-95) H 12/26/20 03:58 Oxyhemoglobin 96.2 % (95.0-99.0) 12/24/20 18:05 Carboxyhemoglobin 0.9 (0.5-1.5) 12/26/20 03:58 FiO2 100 % 12/24/20 18:05 FiO2 % 100 12/26/20 03:58 Sodium 141 mmol/L (137-145) 12/27/20 04:50 Potassium 4.2 mmol/L (3.6-5.0) 12/27/20 04:50 Chloride 105.2 mmol/L (98-107) 12/27/20 04:50 Carbon Dioxide 28 mmol/L (22-30) 12/27/20 04:50 Anion Gap 12 mmol/L 12/27/20 04:50 BUN 18 mg/dL (9-20) 12/27/20 04:50 Creatinine 0.8 mg/dL (0.8-1.3) 12/27/20 04:50 Estimated GFR > 60 ml/min 12/27/20 04:50 BUN/Creatinine Ratio 23 % 12/27/20 04:50 Glucose 190 mg/dL (75-100) H 12/27/20 04:50 POC Glucose 173 mg/dL (70-105) H 12/27/20 11:21 Hemoglobin A1c 6.4 % (4-6) H 12/25/20 04:44 Calcium 8.3 mg/dL (8.4-10.2) L 12/27/20 04:50 Total Bilirubin 0.50 mg/dL (0.1-1.2) 12/25/20 04:44 AST 24 units/L (5-40) 12/25/20 04:44 ALT 36 units/L (7-56) 12/25/20 04:44 Alkaline Phosphatase 57 units/L (35-129) 12/25/20 04:44 Total Creatine Kinase 829 units/L (55-170) H 12/25/20 19:12 CK-MB (CK-2) 4.9 ng/mL (0.0-4.0) H 12/25/20 07:47 CK-MB (CK-2) Rel Index 0.8 (0-4) 12/25/20 07:47 NT-Pro-B Natriuret Pep 129.5 pg/mL (0-900) 12/25/20 09:55 Total Protein 7.5 g/dL (6.3-8.2) 12/25/20 04:44 Albumin 4.9 g/dL (3.9-5) 12/25/20 04:44 Albumin/Globulin Ratio 1.8 % 12/25/20 04:44 Arterial Blood Glucose 174 mg/dL (65-95) H 12/26/20 03:58 Arterial Blood Ionized Calcium 4.8 mg/dL (4.6-5.3) 12/26/20 03:58 Urine Color Yellow (Yellow) 12/25/20 17:53 Urine Turbidity Cloudy (Clear) 12/25/20 17:53 Urine pH 5.0 (5.0-7.0) 12/25/20 17:53 Ur Specific [place] 1.019 (1.003-1.030) 12/25/20 17:53 Urine Protein 100 mg/dl mg/dL (Negative) 12/25/20 17:53 Urine Glucose (UA) Neg mg/dL (Negative) 12/25/20 17:53 Urine Ketones Neg mg/dL (Negative) 12/25/20 17:53 Urine Blood Lg (Negative) 12/25/20 17:53 Urine Nitrite Neg (Negative) 12/25/20 17:53 Ur Reducing Substances Not Reportable 12/25/20 17:53 Urine Bilirubin Neg (Negative) 12/25/20 17:53 Urine Ictotest Not Reportable 12/25/20 17:53 Urine Urobilinogen < 2.0 mg/dL (<2.0) 12/25/20 17:53 Ur Leukocyte Esterase Tr (Negative) 12/25/20 17:53 Urine WBC (Auto) 48.0 /HPF (0.0-6.0) H 12/25/20 17:53 Urine RBC (Auto) 66.0 /HPF (0.0-6.0) 12/25/20 17:53 U Epithel Cells (Auto) 7.0 /HPF (0-13.0) 12/25/20 17:53 Calcium Oxalate Crystal Few 12/25/20 17:53 Urine Mucus 3+ /HPF 12/25/20 17:53 Urine Eosinophils None seen (None Seen) 12/25/20 10:48 Urine Creatinine 263.9 mg/dL (0.1-20.0) H 12/25/20 10:48 Urine Sodium 32 mmol/L 12/25/20 10:48 Urine Potassium 107.55 mmol/L 12/25/20 17:53 Urine Urea Nitrogen 948 12/25/20 10:48 Coronavirus (PCR) Negative (Negative) 12/25/20 09:08 Microbiology: Microbiology 12/25/20 17:53 Urine,Clean Catch Urine Culture - Preliminary NO GROWTH AFTER 24 HOURS 12/24/20 18:22 Tracheal Aspirate Sputum Culture - Final Kelly/IV: Voiding Method Urinal Active Medications - Current Medications Current Medications: Generic Name Dose Route Start Last Admin Trade Name Freq PRN Reason Stop Dose Admin Acetaminophen 650 mg 12/24/20 22:37 Acetaminophen 325 Mg Tab PO Q4H PRN Pain MILD(1-3)/Fever >100.5/SAMPSON Albuterol 2.5 mg 12/26/20 15:52 12/26/20 16:23 Albuterol 2.5 Mg/3 Ml Nebu IH 2.5 mg Q4H PRN Administration Shortness Of Breath Lipase/Protease/Amylase 1 each 12/24/20 23:08 Lipase 10,500/Protease 25,000/Amylase 43,750 (Units) Dr Hobson FEEDTUBE PRN PRN For Clogged Feeding Tube Arformoterol Tartrate 15 mcg 12/26/20 20:00 12/27/20 09:49 Arformoterol 15 Mcg/2 Ml Nebu IH 15 mcg Q12HRT CHINTAN Administration Budesonide 0.5 mg 12/26/20 20:00 12/27/20 09:49 Budesonide 0.5 Mg/2 Ml Nebu IH 0.5 mg Q12HRT CHINTAN Administration Heparin Sodium (Porcine) 5,000 unit 12/24/20 23:15 12/27/20 11:34 Heparin 5,000 Unit/1 Ml Vial SUB-Q 5,000 unit Q12HR CHINTAN Administration Hydromorphone HCl 0.5 mg 12/24/20 22:37 Hydromorphone 1 Mg/1 Ml Inj IV Q3H PRN Pain , Severe (7-10) Hydrophilic Ointment 1 applic 12/24/20 16:39 Lip Therapy Vaseline TP Q2HR PRN Dry Lips Insulin Human Regular 0 units 12/26/20 22:00 12/27/20 11:34 Insulin Regular, Human 100 Units/1 Ml SUB-Q 1 units ACHS CHINTNA Administration Protocol Lorazepam 1 mg 12/25/20 04:09 Lorazepam 2 Mg/Ml Vial IV Q2H PRN Seizures Metoclopramide HCl 10 mg 12/24/20 22:37 Metoclopramide 10 Mg/2 Ml Inj IV Q6H PRN Nausea And Vomiting Multi-Ingred Cream/Lotion/Oil/Oint 1 applic 12/24/20 16:39 Mineral Oil/Petrolatum, White Ophth Oint 3.5 Gm OU Q4HR PRN Dry Eye(s) Ondansetron HCl 4 mg 12/24/20 22:37 Ondansetron 4 Mg/2 Ml Inj IV Q3H PRN Nausea And Vomiting Simple Syrup 15 ml 12/24/20 23:08 Simple Syrup 15 Ml FEEDTUBE PRN PRN Hypoglycemia Simple Syrup 30 ml 12/24/20 23:08 Simple Syrup 15 Ml FEEDTUBE PRN PRN Hypoglycemia Sodium Bicarbonate 325 mg 12/24/20 23:08 Sodium Bicarbonate 325 Mg Tab FEEDTUBE PRN PRN For Clogged Feeding Tube Sodium Chloride 10 ml 12/25/20 10:00 12/27/20 10:20 Sodium Chloride 0.9% 10 Ml Flush Syringe IV 10 ml BID CHINTAN Administration Sodium Chloride 10 ml 12/24/20 22:37 Sodium Chloride 0.9% 10 Ml Flush Syringe IV PRN PRN LINE FLUSH Nutrition/Malnutrition Assess - Dietary Evaluation Nutrition/Malnutrition Findings: Nutrition Notes Start: 12/25/20 08:37 Freq: Status: Active Protocol: Document 12/25/20 09:02 CW (Rec: 12/25/20 09:05 CW [email or web address]) Nutrition Notes Need for Assessment generated from: MD Order,MST Initial or Follow up Assessment Current Diagnosis COPD,Respiratory Failure Other Pertinent Diagnosis anaphylactic reaction, pneu, SOB Labs/Tests Na 135 K 6.9 BUN 21 Cr 2.3 BG 180 Pertinent Medications Solumedrol NS 1L Height 6 ft 2 in Weight 123.5 kg [place] Body Weight (kg) 86.36 BMI 34.9 Weight Status Obese Subjective/Other Information MD consult fot TF managament. RN screen for MST. Pt on mechanical vent needing TF regimen. Recommend Nepro. TF recommendation only reaches 55 % of protein needs in order to protect renal function d/t elevated renal related labs. No signs of orbital nor temporal wasting noted. [id number] addendem: RN alerted RD that TF on hold d/t aspiration . Burn Absent Trauma Absent GI Symptoms Other Food Allergy Yes Current % PO Negligible Minimum of two criteria No physical signs of malnutrition #1 Nutrition Diagnosis Inadequate oral intake Etiology anaphylactic reaction As Evidenced by Signs and Symptoms pt on mechanical vent needing TF regimen Is patient on ventilator? Yes Is Patient Ambulatory and/or Out of Bed Yes REE-(Dunbar-St. Jeor-ambulatory/OOB) [ 2781.675 NUTR.[id number]] Kcal/Kg value to use for calculation 18 Approximate Energy Requirements Using 2223 kcal/Kg Calculation Used for Recommendations Kcal/kg Additional Notes Protein needs: >173g (>2g/ kgIBW) Fluid needs: 1 mlkcal or per MD Nutrition Intervention Change Diet Order: TF Nutrition Support: Nepro at 50 ml/hr with a free water flush of 250 ml q4h. Kcal 2,400 Protein (gm) 97 Fiber (gm) 872 Goal #1 Initiate TF Anticipated Discharge Needs: unable to determine at this time Follow-Up By: 12/28/20 Additional Comments F/U for TF at goal, TF toleration, and vent status
[2020-12-27] MEDS ORDERED: hydrALAZINE 20 MG/1 ML INJ ONE (16:59)
[2020-12-28] MEDS: ALBUTEROL 2.5 MG/3 ML NEBU IH PRN (02:19)
[2020-12-28] MEDS: ARFORMOTEROL 15 MCG/2 ML NEBU IH SCH (07:18)
[2020-12-28] MEDS: BUDESONIDE 0.5 MG/2 ML NEBU IH SCH (07:18)
[2020-12-28] MEDS: INSULIN REGULAR, HUMAN 100 UNITS/1 ML SUB-Q SCH ×4 (07:30→21:49)
--- NOTE | 2020-12-28 08:31 | Progress Note ---
Assessment and Plan 55 y/o male with acute respiratory failure thought secondary to allergic reaction with angioedema 12/28/20: Continue to wean FiO2. Please check chemistry today to follow up on renal function. If creatine and BUN normal, please give another dose of IV lasix 20-40mg. 12/27/20: Gave Lasix IV x1 today. Wean off Bipap but continue PRN orders. Stop IVF. Patient is eating. sTable for transfer to floor. Needs labs in the am. 12/26/20: Extubate today. May need bipap PRN. Continue steroids, benadryl and pepcid through tomorrow. Renal function is improving. K better despite lack of BM. Was given insulin therapy. Will assess swallowing function post extubation. Follow up bilateral ultrasound of kidneys. BNP was normal 1. Agree with IV steroids at current dosing 2. Agree with benadryl at q6 hour dosing 3. Agree with BID Pepcid 4. Will stop IV abx therapy all together 5. Ordered bilateral renal ultrasound as well as urine lytes. Continue fisher catheter for now. Would go ahead and order renal consult in case they feel patient needs HD. 6. Ordered BNP given CXR findings 7. Will repeat Chemistry this afternoon at 1400, BNP can be drawn then. CCT 31 minutes. Subjective Date of service: 12/28/20 Principal diagnosis: Anaphylactic reaction, hyperkalemia, acute renal failure Interval history: Successful transfer out of unit on yesterday. Still on face mask at 40%. Sats in the mid 90's. No further IVF's. Negative 1800 on yesterday. Objective Vital Signs - 12hr 12/27/20 12/27/20 12/28/20 20:45 22:30 04:20 Temperature 98.9 F Pulse Rate 74 Pulse Rate [ 79 Right Throughout] Respiratory 16 Rate Respiratory 18 Rate [Right Throughout] Blood Pressure 127/66 O2 Sat by Pulse 95 91 Oximetry Constitutional: no acute distress, alert, other (obese) ENT: other (orally intubated) Neck: supple, other (large in circumference) Effort: normal Ascultation: Bilateral: diminished breath sounds Percussion: Bilateral: not dull Cardiovascular: regular rate and rhythm Gastrointestinal: other (distended, mildly firm) Extremities: no edema Neurologic: unable to assess CBC and BMP: 12/25/20 04:44 12/27/20 04:50 ABG, PT/INR, D-dimer: ABG ABG pH 7.279 (7.320-7.450) L 12/26/20 03:58 POC ABG pCO2 60.9 mmHg (32.0-48.0) H 12/26/20 03:58 ABG pCO2 62.4 mm Hg 12/24/20 18:05 POC ABG pO2 148.4 mmHg (83-108) H 12/26/20 03:58 ABG pO2 257.7 mm Hg (80.0-90.0) H 12/24/20 18:05 POC ABG HCO3 27.9 12/26/20 03:58 ABG O2 Saturation 99.2 (0-100) 12/26/20 03:58 Abnormal lab findings: Abnormal Labs 12/24/20 12/24/20 12/24/20 16:48 16:48 18:05 WBC RBC 5.05 H Hgb Hct Seg Neuts % (Manual) 30.0 L Lymphocytes % (Manual) 53.0 H Monocytes % (Manual) 8.0 H Eosinophils % (Manual) 7.0 H Basophils % (Manual) 2.0 H Seg Neutrophils # Man Lymphocytes # (Manual) ABG pH 7.275 L POC ABG pCO2 POC ABG pO2 ABG pO2 257.7 H ABG HCO3 28.3 H ABG O2 Saturation 99.4 H ABG Oxyhemoglobin ABG Potassium ABG Glucose Sodium Potassium 3.5 L BUN 8 L Creatinine Glucose 147 H POC Glucose Hemoglobin A1c Calcium Total Creatine Kinase CK-MB (CK-2) Arterial Blood Glucose Urine WBC (Auto) Urine Creatinine 12/24/20 12/25/20 12/25/20 23:16 04:44 04:44 WBC 15.3 H RBC 5.15 H Hgb 15.3 H Hct 45.9 H Seg Neuts % (Manual) 91.0 H Lymphocytes % (Manual) 4.0 L Monocytes % (Manual) Eosinophils % (Manual) Basophils % (Manual) Seg Neutrophils # Man 13.9 H Lymphocytes # (Manual) 0.6 L ABG pH POC ABG pCO2 POC ABG pO2 ABG pO2 ABG HCO3 ABG O2 Saturation ABG Oxyhemoglobin ABG Potassium ABG Glucose Sodium 136 L Potassium 7.4 H* D BUN Creatinine 2.4 H D Glucose 162 H POC Glucose 229 H Hemoglobin A1c Calcium Total Creatine Kinase CK-MB (CK-2) Arterial Blood Glucose Urine WBC (Auto) Urine Creatinine 12/25/20 12/25/20 12/25/20 04:44 06:19 06:32 WBC RBC Hgb Hct Seg Neuts % (Manual) Lymphocytes % (Manual) Monocytes % (Manual) Eosinophils % (Manual) Basophils % (Manual) Seg Neutrophils # Man Lymphocytes # (Manual) ABG pH POC ABG pCO2 POC ABG pO2 ABG pO2 ABG HCO3 ABG O2 Saturation ABG Oxyhemoglobin ABG Potassium ABG Glucose Sodium 135 L Potassium 6.9 H* BUN 21 H Creatinine 2.3 H Glucose 180 H POC Glucose 172 H Hemoglobin A1c 6.4 H Calcium Total Creatine Kinase CK-MB (CK-2) Arterial Blood Glucose Urine WBC (Auto) Urine Creatinine 12/25/20 12/25/20 12/25/20 06:34 07:47 09:55 WBC RBC Hgb Hct Seg Neuts % (Manual) Lymphocytes % (Manual) Monocytes % (Manual) Eosinophils % (Manual) Basophils % (Manual) Seg Neutrophils # Man Lymphocytes # (Manual) ABG pH POC ABG pCO2 POC ABG pO2 ABG pO2 ABG HCO3 ABG O2 Saturation ABG Oxyhemoglobin ABG Potassium ABG Glucose Sodium Potassium 5.6 H BUN 22 H Creatinine 1.9 H Glucose 158 H POC Glucose Hemoglobin A1c Calcium Total Creatine Kinase 569 H 569 H CK-MB (CK-2) 4.8 H 4.9 H Arterial Blood Glucose Urine WBC (Auto) Urine Creatinine 12/25/20 12/25/20 12/25/20 10:48 12:27 14:30 WBC RBC Hgb Hct Seg Neuts % (Manual) Lymphocytes % (Manual) Monocytes % (Manual) Eosinophils % (Manual) Basophils % (Manual) Seg Neutrophils # Man Lymphocytes # (Manual) ABG pH POC ABG pCO2 POC ABG pO2 ABG pO2 ABG HCO3 ABG O2 Saturation ABG Oxyhemoglobin ABG Potassium ABG Glucose Sodium Potassium 6.3 H* BUN 25 H Creatinine 1.7 H Glucose 152 H POC Glucose 226 H Hemoglobin A1c Calcium Total Creatine Kinase CK-MB (CK-2) Arterial Blood Glucose Urine WBC (Auto) Urine Creatinine 263.9 H 12/25/20 12/25/20 12/25/20 15:33 17:37 17:53 WBC RBC Hgb Hct Seg Neuts % (Manual) Lymphocytes % (Manual) Monocytes % (Manual) Eosinophils % (Manual) Basophils % (Manual) Seg Neutrophils # Man Lymphocytes # (Manual) ABG pH 7.177 L POC ABG pCO2 73.1 H POC ABG pO2 ABG pO2 ABG HCO3 ABG O2 Saturation ABG Oxyhemoglobin ABG Potassium 5.8 H ABG Glucose 152 H Sodium Potassium BUN Creatinine Glucose POC Glucose 146 H Hemoglobin A1c Calcium Total Creatine Kinase CK-MB (CK-2) Arterial Blood Glucose 152 H Urine WBC (Auto) 48.0 H Urine Creatinine 12/25/20 12/25/20 12/26/20 19:12 23:17 02:13 WBC RBC Hgb Hct Seg Neuts % (Manual) Lymphocytes % (Manual) Monocytes % (Manual) Eosinophils % (Manual) Basophils % (Manual) Seg Neutrophils # Man Lymphocytes # (Manual) ABG pH POC ABG pCO2 POC ABG pO2 ABG pO2 ABG HCO3 ABG O2 Saturation ABG Oxyhemoglobin ABG Potassium ABG Glucose Sodium Potassium 5.4 H BUN 26 H Creatinine 1.5 H Glucose 146 H POC Glucose 188 H 213 H Hemoglobin A1c Calcium 8.1 L Total Creatine Kinase 829 H CK-MB (CK-2) Arterial Blood Glucose Urine WBC (Auto) Urine Creatinine 12/26/20 12/26/20 12/26/20 03:58 05:17 05:23 WBC RBC Hgb Hct Seg Neuts % (Manual) Lymphocytes % (Manual) Monocytes % (Manual) Eosinophils % (Manual) Basophils % (Manual) Seg Neutrophils # Man Lymphocytes # (Manual) ABG pH 7.279 L POC ABG pCO2 60.9 H POC ABG pO2 148.4 H ABG pO2 ABG HCO3 ABG O2 Saturation ABG Oxyhemoglobin 98.1 H ABG Potassium 4.9 H ABG Glucose 174 H Sodium Potassium BUN 24 H Creatinine Glucose 184 H POC Glucose 168 H Hemoglobin A1c Calcium 8.1 L Total Creatine Kinase CK-MB (CK-2) Arterial Blood Glucose 174 H Urine WBC (Auto) Urine Creatinine 12/26/20 12/26/20 12/26/20 11:41 15:57 21:44 WBC RBC Hgb Hct Seg Neuts % (Manual) Lymphocytes % (Manual) Monocytes % (Manual) Eosinophils % (Manual) Basophils % (Manual) Seg Neutrophils # Man Lymphocytes # (Manual) ABG pH POC ABG pCO2 POC ABG pO2 ABG pO2 ABG HCO3 ABG O2 Saturation ABG Oxyhemoglobin ABG Potassium ABG Glucose Sodium Potassium BUN Creatinine Glucose POC Glucose 157 H 157 H 176 H Hemoglobin A1c Calcium Total Creatine Kinase CK-MB (CK-2) Arterial Blood Glucose Urine WBC (Auto) Urine Creatinine 12/27/20 12/27/20 12/27/20 04:50 07:48 11:21 WBC RBC Hgb Hct Seg Neuts % (Manual) Lymphocytes % (Manual) Monocytes % (Manual) Eosinophils % (Manual) Basophils % (Manual) Seg Neutrophils # Man Lymphocytes # (Manual) ABG pH POC ABG pCO2 POC ABG pO2 ABG pO2 ABG HCO3 ABG O2 Saturation ABG Oxyhemoglobin ABG Potassium ABG Glucose Sodium Potassium BUN Creatinine Glucose 190 H POC Glucose 135 H 173 H Hemoglobin A1c Calcium 8.3 L Total Creatine Kinase CK-MB (CK-2) Arterial Blood Glucose Urine WBC (Auto) Urine Creatinine 12/27/20 12/27/20 12/27/20 16:15 17:45 22:26 WBC RBC Hgb Hct Seg Neuts % (Manual) Lymphocytes % (Manual) Monocytes % (Manual) Eosinophils % (Manual) Basophils % (Manual) Seg Neutrophils # Man Lymphocytes # (Manual) ABG pH POC ABG pCO2 POC ABG pO2 ABG pO2 ABG HCO3 ABG O2 Saturation ABG Oxyhemoglobin ABG Potassium ABG Glucose Sodium Potassium BUN Creatinine Glucose POC Glucose 251 H 269 H 118 H Hemoglobin A1c Calcium Total Creatine Kinase CK-MB (CK-2) Arterial Blood Glucose Urine WBC (Auto) Urine Creatinine
[2020-12-28 09:56] LABS: Hematocrit 41.7 % (35.5-45.6); Hemoglobin 13.9 gm/dl (11.8-15.2); Mean Corpuscular HGB Conc 33 % (32-34); Mean Corpuscular Volume 87 fl (84-94); Platelet Count 169 K/mm3 (140-440); Red Cell Distribution Width 13.8 % (13.2-15.2)
[2020-12-28] MEDS: HEPARIN 5,000 UNIT/1 ML VIAL SUB-Q SCH ×2 (09:57→21:33)
[2020-12-28 10:15] LABS: BUN/Creatinine Ratio 25; Blood Urea Nitrogen 20 mg/dL (9-20); Calcium 8.8 mg/dL (8.4-10.2); Hemolysis Index 43
--- NOTE | 2020-12-28 11:50 | Progress Note ---
Assessment and Plan Impression: * Acute kidney injury - resolved --Renal ultrasound: Right 10.3, Left 12.4 (Dec 25) * Hyperkalemia * Acute respiratory failure secondary to anaphylactic reaction * Anaphylaxis * Hematuria * Proteinuria Plan: * Renal function improved; SHAKEEL resolved * BP stable * Urine output >2L/24 hours * Note IV Lasix per Dr. Strong, ok to continue prn, avoid over-diuresis * Hyperkalemia resolved w/ medical management * Reviewed prior urine studies, renal ultrasound, no change to current management * Encourage po hydration * Await pending serologies * Dose medications for renal function * Avoid potential nephrotoxins Thank you for this consult, will follow peripherally given improvement in renal function, stable electrolytes Subjective Date of service: 12/28/20 Principal diagnosis: Anaphylactic reaction, hyperkalemia, acute renal failure Interval history: Off Bipap this AM, alert and awake, no acute issues noted. Objective - Exam Narrative Exam: General appearance: well-developed, well-nourished EENT: ATNC Respiratory: Present: Clear to Auscultation Cardiology: regular, S1S2 Gastrointestinal: normal, no tenderness, no distended Integumentary: no rash, warm and dry Neurologic: no focal deficit, alert and oriented x3 Musculoskeletal: other (no edema) Psychiatric: cooperative - Vital Signs Vital signs: Vital Signs - 12hr 12/28/20 12/28/20 04:20 07:18 Temperature 98.9 F Pulse Rate 74 Pulse Rate [ 82 Right Throughout] Respiratory 16 Rate Respiratory 18 Rate [Right Throughout] Blood Pressure 127/66 O2 Sat by Pulse 91 93 Oximetry - Lab 12/28/20 08:33 12/28/20 08:33 Most recent lab results ABG pH 7.279 (7.320-7.450) L 12/26/20 03:58 ABG pCO2 62.4 mm Hg 12/24/20 18:05 ABG pO2 257.7 mm Hg (80.0-90.0) H 12/24/20 18:05 ABG HCO3 28.3 mmol/L (20.0-26.0) H 12/24/20 18:05 ABG O2 Saturation 99.2 (0-100) 12/26/20 03:58 Calcium 8.8 mg/dL (8.4-10.2) 12/28/20 08:33 Urine Creatinine 263.9 mg/dL (0.1-20.0) H 12/25/20 10:48 Urine Sodium 32 mmol/L 12/25/20 10:48 Medications & Allergies - Medications Allergies/Adverse Reactions: Allergies Penicillins Allergy (Verified 07/31/17 06:59) Angioedema Home Medications: Home Medications Medication Instructions Recorded Confirmed Last Taken Type ALBUTEROL NEB's [Proventil 0.083% 2.5 mg IH Q3HR PRN 30 Days nebu 08/03/17 12/25/20 Unknown Rx NEBS] Albuterol Mdi (or & Nicu Only) 1 puff IH PRN 30 Days inha 08/03/17 12/25/20 Unknown Rx [ProAir HFA Inhaler] Budesonide [Pulmicort Respules] 0.5 mg IH Q12HRT 30 Days nebu 08/03/17 12/25/20 Unknown Rx Prednisone [predniSONE 10 mg 10 mg PO .TAPER #1 tab.ds.pk 08/03/17 12/25/20 Unknown Rx (6-Day Pack, 21 Tabs)] guaiFENesin [Robitussin] 200 mg PO Q4H PRN 15 Days 08/03/17 12/25/20 Unknown Rx oral.liqd levoFLOXacin [Levaquin] 750 mg PO QDAY #5 tablet 08/03/17 12/25/20 Unknown Rx oxyCODONE /ACETAMINOPHEN [Percocet 1 tab PO Q4H PRN #7 tablet 08/03/17 12/25/20 Unknown Rx 5/325 mg] Active Medications: Generic Name Dose Route Start Last Admin Trade Name Freq PRN Reason Stop Dose Admin Acetaminophen 650 mg 12/24/20 22:37 Acetaminophen 325 Mg Tab PO Q4H PRN Pain MILD(1-3)/Fever >100.5/SAMPSON Albuterol 2.5 mg 12/26/20 15:52 12/28/20 02:19 Albuterol 2.5 Mg/3 Ml Nebu IH 2.5 mg Q4H PRN Administration Shortness Of Breath Lipase/Protease/Amylase 1 each 12/24/20 23:08 Lipase 10,500/Protease 25,000/Amylase 43,750 (Units) Dr Hosbon FEEDTUBE PRN PRN For Clogged Feeding Tube Heparin Sodium (Porcine) 5,000 unit 12/24/20 23:15 12/28/20 09:57 Heparin 5,000 Unit/1 Ml Vial SUB-Q 5,000 unit Q12HR CHINTAN Administration Hydromorphone HCl 0.5 mg 12/24/20 22:37 12/27/20 22:41 Hydromorphone 1 Mg/1 Ml Inj IV 0.5 mg Q3H PRN Administration Pain , Severe (7-10) Insulin Human Regular 0 units 12/26/20 22:00 12/28/20 07:30 Insulin Regular, Human 100 Units/1 Ml SUB-Q Not Given ACHS [facility] Protocol Lorazepam 1 mg 12/25/20 04:09 Lorazepam 2 Mg/Ml Vial IV Q2H PRN Seizures Ondansetron HCl 4 mg 12/24/20 22:37 Ondansetron 4 Mg/2 Ml Inj IV Q3H PRN Nausea And Vomiting
[2020-12-28] MEDS: POLYETHYLENE GLYCOL 3350 17 GM POWDER PO SCH (14:36)
[2020-12-28] MEDS: DOCUSATE SODIUM 100 MG CAP PO SCH ×2 (14:36→21:33)
--- NOTE | 2020-12-28 15:20 | Progress Note ---
Assessment and Plan Acute hypoxic respiratory failure -Extubated on 12/27 -BiPAP therapy as needed -Wean off O2 as tolerated -Pulmonary hygiene Anaphylactic reaction with angioedema -S/p steroid, Benadryl and Pepcid Acute kidney injury -12/25 BUN/creatinine 21/2.4 -S/p MIVF -Nephrology consulted, appreciate recommendations -Renal ultrasound pending Hyperglycemia -12/09 hemoglobin A1c 6.4 -SSI -CC diet COPD -Continue home pulmonary regimen Tobacco abuse -Nicotine cessation counseling Morbid obesity, diet and exercise regimen when clinically more stable as outpatient -= Outpatient sleep study DVT/GI prophylaxis: SCDs to BLE while in bed Dispo: Transfer to floor Brief history:: This is a 35-year-old male with arthritis, asthma, COPD, current tobacco abuse and mitral valve prolapse who presented to the emergency department on 12/24 with acute onset of shortness of breath and angioedema. Patient was immediately intubated in the emergency department upon arrival to prevent severe hypoxia and anoxic encephalopathy. CCM and nephrology were consulted. Patient was admitted to the hospital service for further further work-up and prevent deterioration. Daily clinical course: 12/25/2020 Patient is on vent Patient has high potassium and increased creatinine levels Nephrology consult requested Hyperkalemia was treated 12/26/2020 Patient extubated today Patient doing well after extubation Creatinine normalized 12/27: The time of examination patient was on BiPAP therapy at 55% FiO2. Patient was able to be weaned off BiPAP and given Lasix by CCM and his IV fluids were stopped. Patient is currently on Vapotherm. Acute kidney injury and hyperkalemia. Patient has leukocytosis this morning however he has been on steroids. Patient is stable and will be transferred to the floor. 12/28: Patient on 5 L O2 with Vapotherm today, continue to wean off from oxygen. Complains of constipation ordered for stool softener. Continue to follow clinically. Subjective Date of service: 12/28/20 Principal diagnosis: Anaphylactic reaction, hyperkalemia, acute renal failure Interval history: Patient seen and examined. Medical records and medication list reviewed. No acute event overnight noted by the RN. Patient on 5 L Ventimask today. Patient is tolerating diet. Discussed plan of care at bedside with patient. Objective - Exam Narrative Exam: GENERAL: well-developed morbidly obese -Martiniquais male lying on bed appeared to be in no discomfort. HEENT: Normocephalic. Atraumatic. No conjunctival congestion or icterus. Patient has moist mucous membranes. NECK: Supple. Trachea midline. CHEST/LUNGS: Clear to auscultated bilaterally, breathing nonlabored on supplemental O2. No wheezes crackles or rhonchi. HEART/CARDIOVASCULAR: Regular in rate and rhythm. S1 and S2 positive. ABDOMEN: Abdomen is soft, nontender. Patient has normal bowel sounds. SKIN: There is no rash. Warm and dry. NEURO: No focal motor deficit. Follows command. MUSCULOSKELETAL: No joint effusion or tenderness. EXTRIMITY: No edema, no cyanosis or clubbing. PSYCH: Cooperative. - Constitutional Vitals: Vital Signs - 12hr 12/28/20 12/28/20 04:20 07:18 Temperature 98.9 F Pulse Rate 74 Pulse Rate [ 82 Right Throughout] Respiratory 16 Rate Respiratory 18 Rate [Right Throughout] Blood Pressure 127/66 O2 Sat by Pulse 91 93 Oximetry - Labs CBC & Chem 7: 12/28/20 08:33 12/28/20 08:33 Labs: Abnormal lab results 12/27/20 12/27/20 12/27/20 Range/Units 16:15 17:45 22:26 WBC (4.5-11.0) K/mm3 Glucose (75-100) mg/dL POC Glucose 251 H 269 H 118 H (70-105) mg/dL 12/28/20 12/28/20 Range/Units 08:33 08:33 WBC 13.2 H (4.5-11.0) K/mm3 Glucose 112 H (75-100) mg/dL POC Glucose (70-105) mg/dL HEART Score - HEART Score Age: 45-65 Risk factors: No known risk factors - Critical Actions Critical Actions: 0-3 pts:0.9-1.7%risk of adverse cardiac event.Candidate for discharge
[2020-12-28] MEDS: guaiFENesin ER 600 MG TAB PO SCH ×2 (16:39→21:34)
[2020-12-29 06:56] LABS: Basophils % (Auto) 0.3 % (0.0-1.8); Eosinophils % (Auto) 0.3 % (0.0-4.3); Hematocrit 42.8 % (35.5-45.6); Hemoglobin 14.7 gm/dl (11.8-15.2); Lymphocytes % (Auto) 19.1 % (13.4-35.0); Mean Corpuscular HGB Conc 34 % (32-34); Mean Corpuscular Volume 86 fl (84-94); Monocytes # (Auto) 1.2 K/mm3 (0.0-0.8); Monocytes % (Auto) 11.1 % (0.0-7.3); Platelet Count 182 K/mm3 (140-440); Red Blood Count 4.98 M/mm3 (3.65-5.03); Red Cell Distribution Width 13.6 % (13.2-15.2)
[2020-12-29 07:22] LABS: BUN/Creatinine Ratio 23; Blood Urea Nitrogen 18 mg/dL (9-20); Calcium 8.6 mg/dL (8.4-10.2); Hemolysis Index 7
--- NOTE | 2020-12-29 08:38 | Electrocardiograph Report ---
[facility] Test Date: 2020-12-25 Test Time: 06:36:48 Pat Name: MARCELA MUSTAFA Department: Room: A384 Gender: M Mainspring Former: RICKY : 1965 Requested By: MARQUITA CAMACHO Order Number: [id number] Reading MD: Dante Roche Measurements Intervals [place] Rate: 83 P: 61 DE: 150 QRS: 60 QRSD: 99 T: 43 QT: 338 QTc: 397 Interpretive Statements Sinus rhythm No previous ECG available for comparison Electronically Signed On 12-29-2020 5:38:26 PDT by Dante Roche
[2020-12-29] MEDS: INSULIN REGULAR, HUMAN 100 UNITS/1 ML SUB-Q SCH ×2 (10:01→12:23)
[2020-12-29] MEDS: guaiFENesin ER 600 MG TAB PO SCH (10:09)
[2020-12-29] MEDS: HEPARIN 5,000 UNIT/1 ML VIAL SUB-Q SCH (10:09)
[2020-12-29] MEDS: POLYETHYLENE GLYCOL 3350 17 GM POWDER PO SCH (10:09)
[2020-12-29] MEDS: DOCUSATE SODIUM 100 MG CAP PO SCH (10:09)
--- NOTE | 2020-12-29 11:16 | Progress Note ---
Assessment and Plan Impression: * Acute kidney injury - resolved --Renal ultrasound: Right 10.3, Left 12.4 (Dec 25) * Hyperkalemia * Acute respiratory failure secondary to anaphylactic reaction * Anaphylaxis * Hematuria * Proteinuria Plan: * Renal function improved; SHAKEEL resolved * BP stable * Urine output 3.4L/24 hours * Note IV Lasix per Dr. Strong, ok to continue prn, avoid over-diuresis * Hyperkalemia resolved w/ medical management * Reviewed prior urine studies, renal ultrasound, no change to current management * Encourage po hydration * Await pending serologies * Dose medications for renal function * Avoid potential nephrotoxins Thank you for this consult, will follow peripherally given improvement in renal function, stable electrolytes Subjective Date of service: 12/29/20 Principal diagnosis: Anaphylactic reaction, hyperkalemia, acute renal failure Interval history: Off Bipap this AM, on HFNC, alert and awake, no acute issues noted. Objective - Exam Narrative Exam: General appearance: well-developed, well-nourished EENT: ATNC Respiratory: Present: Clear to Auscultation Cardiology: regular, S1S2 Gastrointestinal: normal, no tenderness, no distended Integumentary: no rash, warm and dry Neurologic: no focal deficit, alert and oriented x3 Musculoskeletal: other (no edema) Psychiatric: cooperative - Vital Signs Vital signs: Vital Signs - 12hr 12/29/20 12/29/20 04:56 08:46 Temperature 98.6 F Pulse Rate 82 Respiratory 20 Rate Blood Pressure 128/75 O2 Sat by Pulse 95 98 Oximetry - Lab 12/29/20 06:21 12/29/20 06:21 Most recent lab results ABG pH 7.279 (7.320-7.450) L 12/26/20 03:58 ABG pCO2 62.4 mm Hg 12/24/20 18:05 ABG pO2 257.7 mm Hg (80.0-90.0) H 12/24/20 18:05 ABG HCO3 28.3 mmol/L (20.0-26.0) H 12/24/20 18:05 ABG O2 Saturation 99.2 (0-100) 12/26/20 03:58 Calcium 8.6 mg/dL (8.4-10.2) 12/29/20 06:21 Urine Creatinine 263.9 mg/dL (0.1-20.0) H 12/25/20 10:48 Urine Sodium 32 mmol/L 12/25/20 10:48 Medications & Allergies - Medications Allergies/Adverse Reactions: Allergies Penicillins Allergy (Verified 07/31/17 06:59) Angioedema Home Medications: Home Medications Medication Instructions Recorded Confirmed Last Taken Type ALBUTEROL NEB's [Proventil 0.083% 2.5 mg IH Q3HR PRN 30 Days nebu 08/03/17 12/25/20 Unknown Rx NEBS] Albuterol Mdi (or & Nicu Only) 1 puff IH PRN 30 Days inha 08/03/17 12/25/20 Unknown Rx [ProAir HFA Inhaler] Budesonide [Pulmicort Respules] 0.5 mg IH Q12HRT 30 Days nebu 08/03/17 12/25/20 Unknown Rx Prednisone [predniSONE 10 mg 10 mg PO .TAPER #1 tab.ds.pk 08/03/17 12/25/20 Unknown Rx (6-Day Pack, 21 Tabs)] guaiFENesin [Robitussin] 200 mg PO Q4H PRN 15 Days 08/03/17 12/25/20 Unknown Rx oral.liqd levoFLOXacin [Levaquin] 750 mg PO QDAY #5 tablet 08/03/17 12/25/20 Unknown Rx oxyCODONE /ACETAMINOPHEN [Percocet 1 tab PO Q4H PRN #7 tablet 08/03/17 12/25/20 Unknown Rx 5/325 mg] Active Medications: Generic Name Dose Route Start Last Admin Trade Name Freq PRN Reason Stop Dose Admin Acetaminophen 650 mg 12/24/20 22:37 Acetaminophen 325 Mg Tab PO Q4H PRN Pain MILD(1-3)/Fever >100.5/SAMPSON Albuterol 2.5 mg 12/26/20 15:52 12/28/20 02:19 Albuterol 2.5 Mg/3 Ml Nebu IH 2.5 mg Q4H PRN Administration Shortness Of Breath Lipase/Protease/Amylase 1 each 12/24/20 23:08 Lipase 10,500/Protease 25,000/Amylase 43,750 (Units) Dr Hobson FEEDTUBE PRN PRN For Clogged Feeding Tube Bisacodyl 10 mg 12/28/20 12:36 Bisacodyl 10 Mg Rect Supp AR QDAY PRN Constipation unrelieved by MOM Docusate Sodium 100 mg 12/28/20 13:00 12/29/20 10:09 Docusate Sodium 100 Mg Cap PO 100 mg BID CHINTAN Administration Guaifenesin 600 mg 12/28/20 16:30 12/29/20 10:09 Guaifenesin Er 600 Mg Tab PO 600 mg BID ON LICENSE OF [facility] Administration Heparin Sodium (Porcine) 5,000 unit 12/24/20 23:15 12/29/20 10:09 Heparin 5,000 Unit/1 Ml Vial SUB-Q 5,000 unit Q12HR CHINTAN Administration Hydromorphone HCl 0.5 mg 12/24/20 22:37 12/27/20 22:41 Hydromorphone 1 Mg/1 Ml Inj IV 0.5 mg Q3H PRN Administration Pain , Severe (7-10) Insulin Human Regular 0 units 12/26/20 22:00 12/29/20 10:01 Insulin Regular, Human 100 Units/1 Ml SUB-Q Not Given ACHS ON LICENSE OF [facility] Protocol Lorazepam 1 mg 12/25/20 04:09 Lorazepam 2 Mg/Ml Vial IV Q2H PRN Seizures Ondansetron HCl 4 mg 12/24/20 22:37 Ondansetron 4 Mg/2 Ml Inj IV Q3H PRN Nausea And Vomiting Polyethylene Glycol 17 gm 12/28/20 13:00 12/29/20 10:09 Polyethylene Glycol 3350 17 Gm Powder PO Not Given QDAY ON LICENSE OF [facility]
[2020-12-29 13:00] VITALS: BP 131/79
--- NOTE | 2020-12-29 13:47 | Discharge Summary ---
Providers - Providers Date of Admission: 12/24/20 18:01 Date of discharge: 12/29/20 Attending physician: HOPE BEAN 12/24/20 22:37 Consult to Physician [CONS] Routine Comment: dr. lorenza hough/ zachery Consulting Provider: MARÍA JUAREZ Physician Instructions: Reason For Exam: Acute respiratory failure with hypoxia, anaphylaxi 12/24/20 23:08 Consult to Dietitian/Nutrition [CONS] Routine Physician Instructions: Assess nutrtn needs, initiate, modify, manage TF Reason For Exam: Reason for Consult: Write/Manage Tube Feeding Reason for Consult: Write/Manage Tube Feeding 12/25/20 10:32 Consult to Physician [CONS] Routine Comment: dr. juarez spoke with dr. lubin/ zachery Consulting Provider: ZAID LUBIN Physician Instructions: Reason For Exam: Acute renal failure 12/27/20 11:00 Occupational Therapy Evaluate and Treat [CONS] Routine Comment: Reason For Exam: Debility Physical Therapy Evaluation and Treat [CONS] Routine Comment: Reason For Exam: Debility Primary care physician: PROGRAM THERAPIST Hospitalization Condition: Critical Pertinent studies: Chest x-ray, abdomen x-ray, renal ultrasound Hospital course: This is a 35-year-old male with arthritis, asthma, COPD, current tobacco abuse and mitral valve prolapse who presented to the emergency department on 12/24 with acute onset of shortness of breath and angioedema. Patient was immediately intubated in the emergency department upon arrival to prevent severe hypoxia and anoxic encephalopathy. CCM and nephrology were consulted. Patient was admitted to the hospital service for further further work-up and prevent deterioration. Daily clinical course: 12/25/2020 Patient is on vent Patient has high potassium and increased creatinine levels Nephrology consult requested Hyperkalemia was treated 12/26/2020 Patient extubated today Patient doing well after extubation Creatinine normalized 12/27: The time of examination patient was on BiPAP therapy at 55% FiO2. Patient was able to be weaned off BiPAP and given Lasix by CCM and his IV fluids were stopped. Patient is currently on Vapotherm. Acute kidney injury and hyperkalemia. Patient has leukocytosis this morning however he has been on steroids. Patient is stable and will be transferred to the floor. 12/28: Patient on 5 L O2 with Vapotherm today, continue to wean off from oxygen. Complains of constipation ordered for stool softener. Continue to follow clinically. 12/29: Patient today on 3 L nasal cannula O2. Vitals stable, serum chemistry stable. Patient will be discharged home with home O2. Patient was recommended to follow-up with his PCP in 1 week. He was also counseled to quit smoking. Discharge diagnosis and management Acute hypoxic respiratory failure -Extubated on 12/27 -Status post BiPAP therapy as needed -Weaned off O2 as tolerated -Hasher Operator was consulted Anaphylactic reaction with angioedema, resolved -S/p steroid, Benadryl and Pepcid Acute kidney injury, resolved -12/25 BUN/creatinine 21/2.4 -S/p MIVF -Nephrology consulted, appreciate recommendations -Renal ultrasound was normal Hyperglycemia -12/09 hemoglobin A1c 6.4 -Placed on SSI -Recommended CC diet COPD -Continue home pulmonary regimen Tobacco abuse -Nicotine cessation counseling done Morbid obesity, diet and exercise regimen when clinically more stable as outpatient -Recommended outpatient sleep study DVT/GI prophylaxis: SCDs to BLE while in bed Disposition: [id number]/TX-06 HOME UNDER HOME [facility] Final Discharge Diagnosis (Prints w/discharge instructions): Acute hypoxic respiratory failure, anaphylactic reaction with angioedema, acute kidney injury resolved, hyperglycemia with A1c 6.4, COPD on home O2, tobacco abuse, morbid obesity. Time spent for discharge: 40 minutes Core Measure Documentation - Palliative Care Palliative Care/ Comfort Measures: Not Applicable - Core Measures Any of the following diagnoses?: none Exam - Physical Exam Narrative exam: GENERAL: well-developed morbidly obese -Singaporean male lying on bed appeared to be in no discomfort. HEENT: Normocephalic. Atraumatic. No conjunctival congestion or icterus. Patient has moist mucous membranes. NECK: Supple. Trachea midline. CHEST/LUNGS: Clear to auscultated bilaterally, breathing nonlabored on supplemental O2. No wheezes crackles or rhonchi. HEART/CARDIOVASCULAR: Regular in rate and rhythm. S1 and S2 positive. ABDOMEN: Abdomen is soft, nontender. Patient has normal bowel sounds. SKIN: There is no rash. Warm and dry. NEURO: No focal motor deficit. Follows command. MUSCULOSKELETAL: No joint effusion or tenderness. EXTRIMITY: No edema, no cyanosis or clubbing. PSYCH: Cooperative. - Constitutional Vitals: Temp Pulse Resp BP Pulse Ox 98.9 F 75 24 131/79 96 12/29/20 12:01 12/29/20 12:01 12/29/20 12:01 12/29/20 12:01 12/29/20 12:01 Plan Activity: advance as tolerated Weight Bearing Status: Weight Bear as Tolerated Diet: low fat, diabetic Special Instructions: home oxygen via (3 L nasal cannula), home health RN Additional Instructions: Please come back to the hospital if your symptoms worsen. Please quit smoking. Please follow-up outpatient for sleep study for possible sleep apnea. Please follow-up with an animal services officer in 1 to 2 weeks following discharge Follow up with: PRIMARY CARE, [Primary Care Provider] - 7 Days NEHA AREVALO MD [Staff Physician] - 7 Days Prescriptions: guaiFENesin ER [Mucinex ER] 600 mg PO BID #10 tablet Prednisone [predniSONE 10 mg (6-Day Pack, 21 Tabs)] 10 mg PO .TAPER #1 tab.ds.pk
--- NOTE | 2020-12-29 14:58 | Progress Note ---
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 No objection to discharge pulmonary nielson. no pulm follow up needed. 12/28/20: Continue to wean FiO2. Please check chemistry today to follow up on renal function. If creatine and BUN normal, please give another dose of IV lasix 20-40mg. 12/27/20: Gave Lasix IV x1 today. Wean off Bipap but continue PRN orders. Stop IVF. Patient is eating. sTable for transfer to floor. Needs labs in the am. 12/26/20: Extubate today. May need bipap PRN. Continue steroids, benadryl and pepcid through tomorrow. Renal function is improving. K better despite lack of BM. Was given insulin therapy. Will assess swallowing function post extubation. Follow up bilateral ultrasound of kidneys. BNP was normal 1. Agree with IV steroids at current dosing 2. Agree with benadryl at q6 hour dosing 3. Agree with BID Pepcid 4. Will stop IV abx therapy all together 5. Ordered bilateral renal ultrasound as well as urine lytes. Continue fisher catheter for now. Would go ahead and order renal consult in case they feel patient needs HD. 6. Ordered BNP given CXR findings 7. Will repeat Chemistry this afternoon at 1400, BNP can be drawn then. CCT 31 minutes. Subjective Date of service: 12/29/20 Principal diagnosis: Anaphylactic reaction, hyperkalemia, acute renal failure Interval history: Weaned to room air. Discharge order in per IMS. Objective Vital Signs - 12hr 12/29/20 12/29/20 12/29/20 04:56 08:46 12:01 Temperature 98.6 F 98.9 F Pulse Rate 82 75 Respiratory 20 24 Rate Blood Pressure 128/75 131/79 O2 Sat by Pulse 95 98 96 Oximetry 12/29/20 12/29/20 14:43 14:53 Temperature Pulse Rate Respiratory Rate Blood Pressure O2 Sat by Pulse 96 95 Oximetry Constitutional: no acute distress, alert, other (obese) ENT: other (orally intubated) Neck: supple, other (large in circumference) Effort: normal Ascultation: Bilateral: diminished breath sounds Percussion: Bilateral: not dull Cardiovascular: regular rate and rhythm Gastrointestinal: other (distended, mildly firm) Extremities: no edema Neurologic: unable to assess CBC and BMP: 12/29/20 06:21 12/29/20 06:21 ABG, PT/INR, D-dimer: ABG ABG pH 7.279 (7.320-7.450) L 12/26/20 03:58 POC ABG pCO2 60.9 mmHg (32.0-48.0) H 12/26/20 03:58 ABG pCO2 62.4 mm Hg 12/24/20 18:05 POC ABG pO2 148.4 mmHg (83-108) H 12/26/20 03:58 ABG pO2 257.7 mm Hg (80.0-90.0) H 12/24/20 18:05 POC ABG HCO3 27.9 12/26/20 03:58 ABG O2 Saturation 99.2 (0-100) 12/26/20 03:58 Abnormal lab findings: Abnormal Labs 12/24/20 12/24/20 12/24/20 16:48 16:48 18:05 WBC RBC 5.05 H Hgb Hct [place] % (Auto) [place] # (Auto) Seg Neuts % (Manual) 30.0 L Lymphocytes % (Manual) 53.0 H Monocytes % (Manual) 8.0 H Eosinophils % (Manual) 7.0 H Basophils % (Manual) 2.0 H Seg Neutrophils # Man Lymphocytes # (Manual) ABG pH 7.275 L POC ABG pCO2 POC ABG pO2 ABG pO2 257.7 H ABG HCO3 28.3 H ABG O2 Saturation 99.4 H ABG Oxyhemoglobin ABG Potassium ABG Glucose Sodium Potassium 3.5 L BUN 8 L Creatinine Glucose 147 H POC Glucose Hemoglobin A1c Calcium Total Creatine Kinase CK-MB (CK-2) Arterial Blood Glucose Urine WBC (Auto) Urine Creatinine 12/24/20 12/25/20 12/25/20 23:16 04:44 04:44 WBC 15.3 H RBC 5.15 H Hgb 15.3 H Hct 45.9 H [place] % (Auto) [place] # (Auto) Seg Neuts % (Manual) 91.0 H Lymphocytes % (Manual) 4.0 L Monocytes % (Manual) Eosinophils % (Manual) Basophils % (Manual) Seg Neutrophils # Man 13.9 H Lymphocytes # (Manual) 0.6 L ABG pH POC ABG pCO2 POC ABG pO2 ABG pO2 ABG HCO3 ABG O2 Saturation ABG Oxyhemoglobin ABG Potassium ABG Glucose Sodium 136 L Potassium 7.4 H* D BUN Creatinine 2.4 H D Glucose 162 H POC Glucose 229 H Hemoglobin A1c Calcium Total Creatine Kinase CK-MB (CK-2) Arterial Blood Glucose Urine WBC (Auto) Urine Creatinine 12/25/20 12/25/20 12/25/20 04:44 06:19 06:32 WBC RBC Hgb Hct [place] % (Auto) [place] # (Auto) Seg Neuts % (Manual) Lymphocytes % (Manual) Monocytes % (Manual) Eosinophils % (Manual) Basophils % (Manual) Seg Neutrophils # Man Lymphocytes # (Manual) ABG pH POC ABG pCO2 POC ABG pO2 ABG pO2 ABG HCO3 ABG O2 Saturation ABG Oxyhemoglobin ABG Potassium ABG Glucose Sodium 135 L Potassium 6.9 H* BUN 21 H Creatinine 2.3 H Glucose 180 H POC Glucose 172 H Hemoglobin A1c 6.4 H Calcium Total Creatine Kinase CK-MB (CK-2) Arterial Blood Glucose Urine WBC (Auto) Urine Creatinine 12/25/20 12/25/20 12/25/20 06:34 07:47 09:55 WBC RBC Hgb Hct [place] % (Auto) [place] # (Auto) Seg Neuts % (Manual) Lymphocytes % (Manual) Monocytes % (Manual) Eosinophils % (Manual) Basophils % (Manual) Seg Neutrophils # Man Lymphocytes # (Manual) ABG pH POC ABG pCO2 POC ABG pO2 ABG pO2 ABG HCO3 ABG O2 Saturation ABG Oxyhemoglobin ABG Potassium ABG Glucose Sodium Potassium 5.6 H BUN 22 H Creatinine 1.9 H Glucose 158 H POC Glucose Hemoglobin A1c Calcium Total Creatine Kinase 569 H 569 H CK-MB (CK-2) 4.8 H 4.9 H Arterial Blood Glucose Urine WBC (Auto) Urine Creatinine 12/25/20 12/25/20 12/25/20 10:48 12:27 14:30 WBC RBC Hgb Hct [place] % (Auto) [place] # (Auto) Seg Neuts % (Manual) Lymphocytes % (Manual) Monocytes % (Manual) Eosinophils % (Manual) Basophils % (Manual) Seg Neutrophils # Man Lymphocytes # (Manual) ABG pH POC ABG pCO2 POC ABG pO2 ABG pO2 ABG HCO3 ABG O2 Saturation ABG Oxyhemoglobin ABG Potassium ABG Glucose Sodium Potassium 6.3 H* BUN 25 H Creatinine 1.7 H Glucose 152 H POC Glucose 226 H Hemoglobin A1c Calcium Total Creatine Kinase CK-MB (CK-2) Arterial Blood Glucose Urine WBC (Auto) Urine Creatinine 263.9 H 12/25/20 12/25/20 12/25/20 15:33 17:37 17:53 WBC RBC Hgb Hct [place] % (Auto) [place] # (Auto) Seg Neuts % (Manual) Lymphocytes % (Manual) Monocytes % (Manual) Eosinophils % (Manual) Basophils % (Manual) Seg Neutrophils # Man Lymphocytes # (Manual) ABG pH 7.177 L POC ABG pCO2 73.1 H POC ABG pO2 ABG pO2 ABG HCO3 ABG O2 Saturation ABG Oxyhemoglobin ABG Potassium 5.8 H ABG Glucose 152 H Sodium Potassium BUN Creatinine Glucose POC Glucose 146 H Hemoglobin A1c Calcium Total Creatine Kinase CK-MB (CK-2) Arterial Blood Glucose 152 H Urine WBC (Auto) 48.0 H Urine Creatinine 12/25/20 12/25/20 12/26/20 19:12 23:17 02:13 WBC RBC Hgb Hct [place] % (Auto) [place] # (Auto) Seg Neuts % (Manual) Lymphocytes % (Manual) Monocytes % (Manual) Eosinophils % (Manual) Basophils % (Manual) Seg Neutrophils # Man Lymphocytes # (Manual) ABG pH POC ABG pCO2 POC ABG pO2 ABG pO2 ABG HCO3 ABG O2 Saturation ABG Oxyhemoglobin ABG Potassium ABG Glucose Sodium Potassium 5.4 H BUN 26 H Creatinine 1.5 H Glucose 146 H POC Glucose 188 H 213 H Hemoglobin A1c Calcium 8.1 L Total Creatine Kinase 829 H CK-MB (CK-2) Arterial Blood Glucose Urine WBC (Auto) Urine Creatinine 12/26/20 12/26/20 12/26/20 03:58 05:17 05:23 WBC RBC Hgb Hct [place] % (Auto) [place] # (Auto) Seg Neuts % (Manual) Lymphocytes % (Manual) Monocytes % (Manual) Eosinophils % (Manual) Basophils % (Manual) Seg Neutrophils # Man Lymphocytes # (Manual) ABG pH 7.279 L POC ABG pCO2 60.9 H POC ABG pO2 148.4 H ABG pO2 ABG HCO3 ABG O2 Saturation ABG Oxyhemoglobin 98.1 H ABG Potassium 4.9 H ABG Glucose 174 H Sodium Potassium BUN 24 H Creatinine Glucose 184 H POC Glucose 168 H Hemoglobin A1c Calcium 8.1 L Total Creatine Kinase CK-MB (CK-2) Arterial Blood Glucose 174 H Urine WBC (Auto) Urine Creatinine 12/26/20 12/26/20 12/26/20 11:41 15:57 21:44 WBC RBC Hgb Hct [place] % (Auto) [place] # (Auto) Seg Neuts % (Manual) Lymphocytes % (Manual) Monocytes % (Manual) Eosinophils % (Manual) Basophils % (Manual) Seg Neutrophils # Man Lymphocytes # (Manual) ABG pH POC ABG pCO2 POC ABG pO2 ABG pO2 ABG HCO3 ABG O2 Saturation ABG Oxyhemoglobin ABG Potassium ABG Glucose Sodium Potassium BUN Creatinine Glucose POC Glucose 157 H 157 H 176 H Hemoglobin A1c Calcium Total Creatine Kinase CK-MB (CK-2) Arterial Blood Glucose Urine WBC (Auto) Urine Creatinine 12/27/20 12/27/20 12/27/20 04:50 07:48 11:21 WBC RBC Hgb Hct [place] % (Auto) [place] # (Auto) Seg Neuts % (Manual) Lymphocytes % (Manual) Monocytes % (Manual) Eosinophils % (Manual) Basophils % (Manual) Seg Neutrophils # Man Lymphocytes # (Manual) ABG pH POC ABG pCO2 POC ABG pO2 ABG pO2 ABG HCO3 ABG O2 Saturation ABG Oxyhemoglobin ABG Potassium ABG Glucose Sodium Potassium BUN Creatinine Glucose 190 H POC Glucose 135 H 173 H Hemoglobin A1c Calcium 8.3 L Total Creatine Kinase CK-MB (CK-2) Arterial Blood Glucose Urine WBC (Auto) Urine Creatinine 12/27/20 12/27/20 12/27/20 16:15 17:45 22:26 WBC RBC Hgb Hct [place] % (Auto) [place] # (Auto) Seg Neuts % (Manual) Lymphocytes % (Manual) Monocytes % (Manual) Eosinophils % (Manual) Basophils % (Manual) Seg Neutrophils # Man Lymphocytes # (Manual) ABG pH POC ABG pCO2 POC ABG pO2 ABG pO2 ABG HCO3 ABG O2 Saturation ABG Oxyhemoglobin ABG Potassium ABG Glucose Sodium Potassium BUN Creatinine Glucose POC Glucose 251 H 269 H 118 H Hemoglobin A1c Calcium Total Creatine Kinase CK-MB (CK-2) Arterial Blood Glucose Urine WBC (Auto) Urine Creatinine 12/28/20 12/28/20 12/28/20 08:33 08:33 17:14 WBC 13.2 H RBC Hgb Hct [place] % (Auto) [place] # (Auto) Seg Neuts % (Manual) Lymphocytes % (Manual) Monocytes % (Manual) Eosinophils % (Manual) Basophils % (Manual) Seg Neutrophils # Man Lymphocytes # (Manual) ABG pH POC ABG pCO2 POC ABG pO2 ABG pO2 ABG HCO3 ABG O2 Saturation ABG Oxyhemoglobin ABG Potassium ABG Glucose Sodium Potassium BUN Creatinine Glucose 112 H POC Glucose 121 H Hemoglobin A1c Calcium Total Creatine Kinase CK-MB (CK-2) Arterial Blood Glucose Urine WBC (Auto) Urine Creatinine 12/28/20 12/29/20 12/29/20 21:45 06:21 06:21 WBC RBC Hgb Hct [place] % (Auto) 11.1 H [place] # (Auto) 1.2 H Seg Neuts % (Manual) Lymphocytes % (Manual) Monocytes % (Manual) Eosinophils % (Manual) Basophils % (Manual) Seg Neutrophils # Man Lymphocytes # (Manual) ABG pH POC ABG pCO2 POC ABG pO2 ABG pO2 ABG HCO3 ABG O2 Saturation ABG Oxyhemoglobin ABG Potassium ABG Glucose Sodium Potassium BUN Creatinine Glucose 109 H POC Glucose 113 H Hemoglobin A1c Calcium Total Creatine Kinase CK-MB (CK-2) Arterial Blood Glucose Urine WBC (Auto) Urine Creatinine 12/29/20 08:02 WBC RBC Hgb Hct [place] % (Auto) [place] # (Auto) Seg Neuts % (Manual) Lymphocytes % (Manual) Monocytes % (Manual) Eosinophils % (Manual) Basophils % (Manual) Seg Neutrophils # Man Lymphocytes # (Manual) ABG pH POC ABG pCO2 POC ABG pO2 ABG pO2 ABG HCO3 ABG O2 Saturation ABG Oxyhemoglobin ABG Potassium ABG Glucose Sodium Potassium BUN Creatinine Glucose POC Glucose 122 H Hemoglobin A1c Calcium Total Creatine Kinase CK-MB (CK-2) Arterial Blood Glucose Urine WBC (Auto) Urine Creatinine
== END 2020-12-29 17:30 | disposition home or self-care (01) | DRG 208 ==
LOC: ED 16:17 → CC1 18:01 → 3A 12-27 19:06
PROVIDERS: ADMIT Internal Medicine; ATTEND Internal Medicine
PROC: 0BH17EZ Insertion of Endotracheal Airway into Trachea, Via Natural or Artificial Opening (ICD-10-PCS; principal; 2020-12-24)
PROC: 5A1945Z Respiratory Ventilation, 24-96 Consecutive Hours (ICD-10-PCS; 2020-12-24)
PROC: 4A033R1 Measurement of Arterial Saturation, Peripheral, Percutaneous Approach (ICD-10-PCS; 2020-12-24)
PROC: 5A09457 Assistance with Respiratory Ventilation, 24-96 Consecutive Hours, Continuous Positive Airway Pressure (ICD-10-PCS; 2020-12-27)
DX: J96.01 Acute respiratory failure with hypoxia (principal); T78.2XXA Anaphylactic shock, unspecified, initial encounter; E87.5 Hyperkalemia; J45.909 Unspecified asthma, uncomplicated; J44.9 Chronic obstructive pulmonary disease, unspecified; M19.90 Unspecified osteoarthritis, unspecified site; I34.1 Nonrheumatic mitral (valve) prolapse; F17.200 Nicotine dependence, unspecified, uncomplicated; J44.0 Chronic obstructive pulmonary disease with (acute) lower respiratory infection; J69.0 Pneumonitis due to inhalation of food and vomit; N17.0 Acute kidney failure with tubular necrosis; E66.01 Morbid (severe) obesity due to excess calories; Z79.899 Other long term (current) drug therapy; Z79.891 Long term (current) use of opiate analgesic; Z79.01 Long term (current) use of anticoagulants; Z88.0 Allergy status to penicillin; Z91.013 Allergy to seafood; Z71.6 Tobacco abuse counseling
CPT/HCPCS: 31500; 36415; 36600; 71045; 74018; 76770; 80048; 80053; 81001; 82550; 82553; 82570; 82803; 82805; 82962; 83036; 83880; 84133; 84300; 84520; 85007; 85025; 85027; 87070; 87086; 87205; 89050; 93005; 94002; 94003; 94640; 94660; 96365; 96375; G0378; J0360; J0610; J1170; J1200; J1644; J1815; J1940; J2060; J2250; J2405; J2704; J2930; J3010; J3475; J7030; J7120; U0003